=== PATIENT | female | born 1960 | race Caucasian/White ===

== ENCOUNTER 2017-02-22 19:07 | Inpatient (IN) | payer SELFPAY ==
[~2017-02-22] VITALS: Ht 157.5 cm; Wt 64.2 kg
--- OUTSIDE RECORDS SUMMARY | 2017-02-22 19:11 | XMS REPORT | Referral Summary ---
Author Author [facility] Organization [facility] Address Unknown Phone Unavailable Care Team Providers Care Sports Agent Name Role Phone Lesia Somers Primary Care Physician [phone] Encounter Date(s): 03/07/15 - 03/07/15 [facility] [address] [place] [address] [address] [place] [address] Discharge Diagnosis: Anemia Discharge Diagnosis: GERD (gastroesophageal reflux disease) Discharge Diagnosis: Melena Discharge Disposition: 01-Home or Self Care Attending Physician: Ankur Sunshine MD Admitting Physician: Ankur Sunshine MD Referring Physician: Jesus Somers MD Vital Signs Most recent to 1 oldest [Reference Range]: Temperature Tympanic 36.4 degC [36.6-38.1 degC] *LOW* (03/07/15 3:04 PM) Peripheral Pulse 80 bpm Rate [60-100 bpm] (03/07/15 3:04 PM) Respiratory Rate 16 br/min [14-20 br/min] (03/07/15 3:04 PM) Blood Pressure 112/74 mmHg [90-140/60-90 mmHg] (03/07/15 3:04 PM) Problem List Condition Effective Dates Status Health Status Informant Anemia(Confirmed) Active Depression(Confirmed Active ) Fever(Confirmed) Active Kidney Active stones(Confirmed) Mental Active retardation(Confirme d) Allergies, Adverse Reactions, Alerts No Known Medication Allergies Medications cyclobenzaprine 10 mg oral tablet 1 tabs, Oral, q8hr, Pain, # 30 tabs, 0 Refill(s), Pharmacy: [facility] # [id number], 1 tabs Oral q8hr,PRN:Pain Start Date: 02/28/15 Stop Date: 11/01/15 Status: Ordered Glucophage 500 mg oral tablet 1 tabs, Oral, Daily, # 90 tabs, 0 Refill(s), Pharmacy: [facility] #[id number] , 1 tabs Oral Daily,x90 days Start Date: 02/22/15 Stop Date: 05/23/15 Status: Ordered ibuprofen 200 mg oral tablet 2 tabs, Oral, q6hr, as needed for pain, # 120 tabs, 0 Refill(s) Start Date: 02/21/15 Status: Ordered PARoxetine 20 mg oral tablet 2 tabs, Oral, Daily, # 30 tabs, 0 Refill(s) Start Date: 02/21/15 Status: Ordered PriLOSEC 40 mg oral delayed release capsule 1 caps, Oral, Daily, # 30 caps, 0 Refill(s), Pharmacy: [facility] #[id number] , 1 caps Oral Daily Start Date: 02/21/15 Status: Ordered Results No data available for this section Immunizations No data available for this section Procedures No data available for this section Social History Social History Type Response Smoking Status Never smoker Assessment and Plan Extracted from: Title: Ambulatory Patient Education Author: Ankur Sunshine MD Date: 03/07 Family Medicine Diet for Gastroesophageal Reflux Disease, Adult Reflux (acid reflux ) is when acid from your stomach flows up into the esophagus. When acid comes in contact with the esophagus, the acid causes irritation and soreness (inflammation ) in the esophagus. When reflux happens often or so severely that it causes damage to the esophagus, it is called gastroesophageal reflux disease (GERD). Nutrition therapy can help ease the discomfort of GERD. FOODS OR DRINKS TO AVOID OR LIMIT Smoking or chewing tobacco. Nicotine is one of the most potent stimulants to acid production in the gastrointestinal tract. Caffeinated and decaffeinated coffee and black tea. Regular or low-calorie carbonated beverages or energy drinks (caffeine- free carbonated beverages are allowed). Strong spices, such as black pepper, white pepper, red pepper, cayenne, fontanez powder, and chili powder. Peppermint or spearmint. Chocolate. High-fat foods, including meats and fried foods. Extra added fats including oils, butter, salad dressings, and nuts. Limit these to less than 8 tsp per day. Fruits and vegetables if they are not tolerated, such as citrus fruits or tomatoes. Alcohol. Any food that seems to aggravate your condition. If you have questions regarding your diet, call your caregiver or a registered dietitian. OTHER THINGS THAT MAY HELP GERD INCLUDE: Eating your meals slowly, in a relaxed setting. Eating 5 to 6 small meals per day instead of 3 large meals. Eliminating food for a period of time if it causes distress. Not lying down until 3 hours after eating a meal. Keeping the head of your bed raised 6 to 9 inches (15 to 23 cm) by using a foam wedge or blocks under the legs of the bed. Lying flat may make symptoms worse. Being physically active. Weight loss may be helpful in reducing reflux in overweight or obese adults. Wear loose fitting clothing EXAMPLE MEAL PLAN This meal plan is approximately 2,000 calories based on [employer] Blood[employer]ate.gov meal planning guidelines. Breakfast cup cooked oatmeal. 1 cup strawberries. 1 cup low-fat milk. 1 oz almonds. Snack 1 cup cucumber slices. 6 oz yogurt (made from low-fat or fat-free milk). Lunch 2 slice whole-wheat bread. 2 oz sliced turkey. 2 tsp mayonnaise. 1 cup blueberries. 1 cup snap peas. Snack 6 whole-wheat crackers. 1 oz string cheese. Dinner cup brown rice. 1 cup mixed veggies. 1 tsp olive oil. 3 oz grilled fish. Document Released: 10/19/2006 Document Revised: 01/10/2013 Document Reviewed: ExitCare Patient Information 2014 [employer]. No follow up information was provided. Extracted from: Title: Office Visit Note Author: Ankur Sunshine MD Date: 03/07/15 Assessment/Plan Anemia Ordered: Office Visit Level 4 New 88904 GERD (gastroesophageal reflux disease) Ordered: Office Visit Level 4 New [id number] Melena Ordered: Office Visit Level 4 New [id number] Plan: Bidirectional endoscopy. I did review the patient's chart including a recent office note performed by her primary care physician from February 21, 2015. Reviewed lab work from this date consisting of CBC CMP and amylase levels. Hemoglobin was found to be low at 9.3. White count slightly elevated at 15.4. Otherwise lab found to be essentially within normal limits. I informed the patient that I would recommend that she undergo both an EGD as well as a colonoscopy for further evaluation of her melanotic stools, anemia, serve as a portion of her overall colorectal cancer surveillance, as well as secondary to her history for GERD. Risk of endoscopy was discussed with the patient. Risks include but are not inclusive of bleeding and/or perforation requiring surgery. Patient understood and did not want to schedule at this time for financial reasons. I did have my staff informed the patient that our clinic does offer financial assistance and decreased rates for people in need. She was given phone numbers to contact in regards to this matter.
--- OUTSIDE RECORDS SUMMARY | 2017-02-22 19:11 | XMS REPORT | Continuity of Care Document ---
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 Exotropia, unspecified - *Chronic Depression - *Chronic OTHER ABNORMAL GLUCOSE - *Chronic Family History Family Member Diagnosis Age At Onset Status Father (Unknown) Alive and well (Unknown) Mother (Unknown) COPD Yes Social History Social History Element Description Quantity Unknown Allergies, Adverse Reactions, Alerts Substance Reaction Severity Status Unknown Medications Medication Instructions Dosage Effective Dates (start - stop) Status Paxil 30 mg tablet take 1 tablet (30MG) by oral route every day 30 MG - Active Mucinex D 60 mg-600 mg tablet,extended release take 1 tablet by oral route every 12 hours as needed 0 - Active Immunizations Vaccine Date Status Comments Unknown Results Test Name Date and Time Measure Units Reference Range Abnormal Flag Comments Unknown Vital Signs Date / Time: Height Weight Pulse Rate Blood Pressure Temperature /08:56:00 62.25 in 143.00 lbs 126/78 mm[Hg] 96.9 F Procedures Procedure Date Unknown Encounters Encounter Location Date Patient Visit [facility] Patient Visit [facility] Patient Visit Conversion Patient Visit [facility] Lauro Advance Directives Directive Effective Date Unknown
--- OUTSIDE RECORDS SUMMARY | 2017-02-22 19:11 | XMS REPORT | Referral Summary ---
Author Author [facility] Family Medicine Organization [facility] Family [facility] Address Unknown Phone Unavailable Care Team Providers Care Insurance Claim Representative Name Role Phone Lesia Somers Primary Care Physician [phone] Encounter VC Date(s): 07/10/16 - 07/10/16 [facility], Family [address] [place] [address] Discharge Disposition: 01-Home or Self Care Attending Physician: Jesus Somers MD Admitting Physician: Jesus Somers MD Vital Signs Most recent to 1 oldest [Reference Range]: Blood Pressure 130/90 mmHg [90-140/60-90 mmHg] (07/10/16 8:06 AM) Problem List Condition Effective Dates Status Health Status Informant Anemia(Confirmed) Active Anxiety(Confirmed)1 Active Depression(Confirmed Active ) Unspecified disorder Active of eye movements(Confirmed) Fever(Confirmed) Active Preglaucoma, Active unspecified(Confirme d) Hyperlipidemia(Confi Active rmed) Adult Active hypothyroidism(Confi rmed) Kidney Active stones(Confirmed) Homonymous bilateral Active field defects(Confirmed) NIDDY (non-insulin Active dependent diabetes mellitus in young)(Confirmed) Mental Active retardation(Confirme d) 1Dr. [facility] Allergies, Adverse Reactions, Alerts No Known Medication Allergies Medications ibuprofen 200 mg oral tablet 2 tabs, Oral, q6hr, as needed for pain, # 120 tabs, 0 Refill(s) Start Date: 02/21/15 Status: Ordered metFORMIN 500 mg oral tablet 500 mg 1 tabs, Oral, Daily, with meals, # 90 tabs, 0 Refill(s), Pharmacy: [facility] #[id number], 1 tabs Oral Daily,Instr:with meals Start Date: 07/10/16 Status: Ordered PARoxetine 20 mg oral tablet 2 tabs, Oral, Daily, # 30 tabs, 0 Refill(s) Start Date: 02/21/15 Status: Ordered Synthroid 25 mcg (0.025 mg) oral tablet 25 mcg 1 tabs, Oral, Daily, # 60 tabs, 0 Refill(s), Pharmacy: [facility] # [id number], 1 tabs Oral Daily Start Date: 07/10/16 Status: Ordered Results No data available for this section Immunizations Vaccine Date Refusal Reason influenza virus vaccine, inactivated 07/10/16 tetanus-diphth toxoids (Td) adult/adol 04/12/01 Procedures No data available for this section Social History Social History Type Response Smoking Status Never smoker Assessment and Plan Extracted from: Title: Ambulatory Patient Education Author: Jesus Somers MD Date: 07/10/16 Family Medicine Cholesterol Cholesterol is a white, waxy, fat-like substance needed by your body in small amounts. The liver makes all the cholesterol you need. Cholesterol is carried from the liver by the blood through the blood vessels. Deposits of cholesterol ( plaque) may build up on blood vessel michael. These make the arteries narrower and stiffer. Cholesterol plaques increase the risk for heart attack and stroke. You cannot feel your cholesterol level even if it is very high. The only way to know it is high is with a blood test. Once you know your cholesterol levels, you should keep a record of the test results. Work with your health care provider to keep your levels in the desired range. WHAT DO THE RESULTS MEAN? Total cholesterol is a rough measure of all the cholesterol in your blood. LDL is the so-called bad cholesterol. This is the type that deposits cholesterol in the michael of the arteries. You want this level to be low. HDL is the good cholesterol because it cleans the arteries and carries the LDL away. You want this level to be high. Triglycerides are fat that the body can either burn for energy or store. High levels are closely linked to heart disease. WHAT ARE THE DESIRED LEVELS OF CHOLESTEROL? Total cholesterol below 200. LDL below 100 for people at risk, below 70 for those at very high risk. HDL above 50 is good, above 60 is best. Triglycerides below 150. HOW CAN I LOWER MY CHOLESTEROL? Diet. Follow your diet programs as directed by your health care provider. Choose fish or white meat chicken and turkey, roasted or baked. Limit fatty cuts of red meat, fried foods, and processed meats, such as sausage and lunch meats. Eat lots of fresh fruits and vegetables. Choose whole grains, beans, pasta, potatoes, and cereals. Use only small amounts of olive, corn, or canola oils. Avoid butter, mayonnaise, shortening, or palm kernel oils. Avoid foods with trans fats. Drink skim or nonfat milk and eat low-fat or nonfat yogurt and cheeses. Avoid whole milk, cream, ice cream, egg yolks, and full-fat cheeses. Healthy desserts include brandt food cake, frederick snaps, animal crackers, hard candy, popsicles, and low-fat or nonfat frozen yogurt. Avoid pastries, cakes, pies, and cookies. Exercise. Follow your exercise programs as directed by your health care provider. A regular program helps decrease LDL and raise HDL. A regular program helps with weight control. Do things that increase your activity level like gardening, walking, or taking the stairs. Ask your health care provider about how you can be more active in your daily life. Medicine. Take medicine only as directed by your health care provider. Medicine may be prescribed by your health care provider to help lower cholesterol and decrease the risk for heart disease. If you have several risk factors, you may need medicine even if your levels are normal. This information is not intended to replace advice given to you by your health care provider. Make sure you discuss any questions you have with your health care provider. Document Released: 07/14/2002 Document Revised: 11/09/2015 Document Reviewed: [facility] Patient Information [address] [facility]. No follow up information was provided. Extracted from: Title: Office Visit Note Author: Jesus Somers MD Date: 07/10/16 Assessment/Plan Adult hypothyroidism Synthroid .025mg po daily. RTC in 60 days for recheck. The patient has family members present who are agreeable with today's plan and have no additional concerns or requests. Her father is here. Depression This issue was reviewed, appears stable, and current therapy continued except as mentioned. Appropriate lab was reviewed from the most recent appropriate entry and lab was ordered if needed in the cpoe/nursing orders, and follow up recommended generally in 90 days and no later then six months. Stable on paxil. Hyperlipidemia This issue was reviewed, appears stable, and current therapy continued except as mentioned. Appropriate lab was reviewed from the most recent appropriate entry and lab was ordered if needed in the cpoe/nursing orders, and follow up recommended generally in 90 days and no later then six months. Mental retardation This issue was reviewed, appears stable, and current therapy continued except as mentioned. Appropriate lab was reviewed from the most recent appropriate entry and lab was ordered if needed in the cpoe/nursing orders, and follow up recommended generally in 90 days and no later then six months. NIDDY (non-insulin dependent diabetes mellitus in young) This issue was reviewed, appears stable, and current therapy continued except as mentioned. Appropriate lab was reviewed from the most recent appropriate entry and lab was ordered if needed in the cpoe/nursing orders, and follow up recommended generally in 90 days and no later then six months. The patient was notified for the need for regular quarterly f/u of their diabetes. Further any pertinent medication, supplies, etc were refilled. Additionally, they are to have annual eye exams, foot exams, and regular care. Lab stable. The patient was given the vaccines requested per protocol and according to those needed for school/family/college/etc. Flu vaccine given.
--- OUTSIDE RECORDS SUMMARY | 2017-02-22 19:11 | XMS REPORT | Referral Summary ---
Author Organization Unknown Address Unknown Phone Unavailable Care Team Providers Care Reading Tutor Name Role Phone Lesia Somers Primary Care Physician [phone] Encounter [facility] [id number] Date(s): 02/22/15 - 02/22/15 [facility], [facility], Family Medicine [address] [place] [address] [place] [id number] Discharge Diagnosis: Abdominal pain Discharge Diagnosis: Anemia Discharge Diagnosis: Fever Discharge Diagnosis: Elevated blood sugar Discharge Diagnosis: Medication reaction Discharge Diagnosis: GI bleed Discharge Diagnosis: Nausea & vomiting Discharge Diagnosis: Mental retardation Discharge Disposition: Home or Self Care Attending Physician: Jesus Somers MD Admitting Physician: Jesus Somers MD Vital Signs Most recent to 1 oldest [Reference Range]: Blood Pressure 128/70 mmHg [90-140/60-90 mmHg] (02/22/15 8:55 AM) Problem List Condition Effective Dates Status Health Status Informant Anemia(Confirmed) Active Depression(Confirmed Active ) Fever(Confirmed) Active Kidney Active stones(Confirmed) Mental Active retardation(Confirme d) Allergies, Adverse Reactions, Alerts No Known Medication Allergies Medications Glucophage 500 mg oral tablet 1 tabs, Oral, Daily, # 90 tabs, 0 Refill(s), Pharmacy: [facility] #[id number] , 1 tabs Oral Daily,x90 days Start Date: 02/22/15 Stop Date: 05/23/15 Status: Ordered ibuprofen 200 mg oral tablet 2 tabs, Oral, q6hr, as needed for pain, # 120 tabs, 0 Refill(s) Start Date: 02/21/15 Status: Ordered Keflex 500 mg oral capsule 1 caps, Oral, QID, X 10 days, # 40 caps, 0 Refill(s), Pharmacy: [facility] #[id number], 1 caps Oral QID,x10 days Start Date: 02/21/15 Stop Date: 03/03/15 Status: Ordered PARoxetine 20 mg oral tablet 2 tabs, Oral, Daily, # 30 tabs, 0 Refill(s) Start Date: 02/21/15 Status: Ordered PriLOSEC 40 mg oral delayed release capsule 1 caps, Oral, Daily, # 30 caps, 0 Refill(s), Pharmacy: [facility] #[id number] , 1 caps Oral Daily Start Date: 02/21/15 Status: Ordered Results No data available for this section Immunizations No data available for this section Procedures No data available for this section Social History Social History Type Response Smoking Status Never smoker Assessment and Plan Extracted from: Title: Ambulatory Patient Education Author: Jesus Somers MD Date: Emergency Medicine Abdominal Pain, Adult Many things can cause abdominal pain. Usually, abdominal pain is not caused by a disease and will improve without treatment. It can often be observed and treated at home. Your health care provider will do a physical exam and possibly order blood tests and X-rays to help determine the seriousness of your pain. However, in many cases, more time must pass before a clear cause of the pain can be found. Before that point, your health care provider may not know if you need more testing or further treatment. HOME CARE INSTRUCTIONS Monitor your abdominal pain for any changes. The following actions may help to alleviate any discomfort you are experiencing: Only take [id number] or prescription medicines as directed by your health care provider. Do not take laxatives unless directed to do so by your health care provider. Try a clear liquid diet (broth, tea, or water) as directed by your health care provider. Slowly move to a bland diet as tolerated. SEEK MEDICAL CARE IF: You have unexplained abdominal pain. You have abdominal pain associated with nausea or diarrhea. You have pain when you urinate or have a bowel movement. You experience abdominal pain that wakes you in the night. You have abdominal pain that is worsened or improved by eating food. You have abdominal pain that is worsened with eating fatty foods. SEEK IMMEDIATE MEDICAL CARE IF: Your pain does not go away within 2 hours. You have a fever. You keep throwing up (vomiting ). Your pain is felt only in portions of the abdomen, such as the right side or the left lower portion of the abdomen. You pass bloody or black tarry stools. MAKE SURE YOU: Understand these instructions. Will watch your condition. Will get help right away if you are not doing well or get worse. Document Released: 07/29/2006 Document Revised: 08/09/2014 Document Reviewed: ExitCare Patient Information [address] [facility]. No follow up information was provided. Extracted from: Title: Office Visit Note Author: Jesus Somers MD Date: 02/22/15 Assessment/Plan Abdominal pain Improved. Awaiting hemoccults. To [facility] Surgery tomorrow for evaluation. To ER if worse. Anemia Labreviewed. To [facility] Surgery for evaluationtomorrow. To ER if worse. The patient has family members present who are agreeable with today's plan and have no additional concerns or requests. Father is here. Elevated blood sugar Glucophage 500mg po daily. Fever The patient's issue is nearly or completely resolved. There is no further issues or testing desired by them at this time. Continue abx for now. Ordered: Urinalysis with Culture if Indicated GI bleed See above. Medication reaction Stop the zofran. Unclear that this was the true cause but stopped for now. Mental retardation Mental challenges are permanent.Father is here with her. She is functionally independent. Nausea & vomiting Orders: cephalexin, 1 caps, Oral, QID, X 10 days, # 40 caps, 0 Refill(s), Pharmacy: [facility] #[id number], 1 caps Oral QID,x10 days metFORMIN, 1 tabs, Oral, Daily, # 90 tabs, 0 Refill(s), Pharmacy: [facility] #[id number], 1 tabs Oral Daily,x90 days omeprazole, 1 caps, Oral, Daily, # 30 caps, 0 Refill(s), Pharmacy: [facility] #[id number], 1 caps Oral Daily Occult Blood, Stool
--- OUTSIDE RECORDS SUMMARY | 2017-02-22 19:11 | XMS REPORT | Referral Summary ---
Author Author [facility], Family Medicine Organization [facility] Address Unknown Phone Unavailable Care Team Providers Care Test Developer Name Role Phone Lesia Somers Primary Care Physician [phone] Encounter [facility] [id number] Date(s): 09/03/16 - 09/03/16 [facility], Family [address] [place] [address] Discharge Diagnosis: Mental retardation Discharge Diagnosis: NIDDY (non-insulin dependent diabetes mellitus in young) Discharge Diagnosis: Scabies Discharge Diagnosis: Adult hypothyroidism Discharge Diagnosis: Pruritus Discharge Disposition: 01-Home or Self Care Attending Physician: Jesus Somers MD Admitting Physician: Jesus Somers MD Vital Signs Most recent to 1 oldest [Reference Range]: Blood Pressure 120/80 mmHg [90-140/60-90 mmHg] (09/03/16 4:02 PM) Problem List Condition Effective Dates Status Health Status Informant Anemia(Confirmed) Active Anxiety(Confirmed)1 Active Depression(Confirmed Active ) Unspecified disorder Active of eye movements(Confirmed) Fever(Confirmed) Active Preglaucoma, Active unspecified(Confirme d) Hyperlipidemia(Confi Active rmed) Adult Active hypothyroidism(Confi rmed) Kidney Active stones(Confirmed) Homonymous bilateral Active field defects(Confirmed) NIDDY (non-insulin Active dependent diabetes mellitus in young)(Confirmed) Mental Active retardation(Confirme d) [facility] Allergies, Adverse Reactions, Alerts No Known Medication Allergies Medications ibuprofen 200 mg oral tablet 2 tabs, Oral, q6hr, as needed for pain, # 120 tabs, 0 Refill(s) Start Date: 02/21/15 Status: Ordered metFORMIN 500 mg oral tablet 500 mg 1 tabs, Oral, Daily, with meals, # 90 tabs, 0 Refill(s), Pharmacy: [facility] #[id number], 1 tabs Oral Daily,Instr:with meals Start Date: 07/10/16 Status: Ordered PARoxetine 20 mg oral tablet 2 tabs, Oral, Daily, # 30 tabs, 0 Refill(s) Start Date: 02/21/15 Status: Ordered predniSONE 20 mg oral tablet 20 mg 1 tabs, Oral, Daily, X 5 days, # 5 tabs, 0 Refill(s), Pharmacy: [facility] #[id number], 1 tabs Oral Daily,x5 days Start Date: 09/03/16 Stop Date: 09/08/16 Status: Ordered predniSONE 20 mg oral tablet 20 mg 1 tabs, Oral, Daily, X 5 days, # 5 tabs, 0 Refill(s), Pharmacy: [facility] #[id number], 1 tabs Oral Daily,x5 days Start Date: 09/03/16 Stop Date: 09/08/16 Status: Ordered Synthroid 25 mcg (0.025 mg) oral tablet 25 mcg 1 tabs, Oral, Daily, # 90 tabs, 1 Refill(s), Pharmacy: [facility] # [id number], 1 tabs Oral Daily Start Date: 09/03/16 Status: Ordered Results No data available for this section Immunizations Vaccine Date Refusal Reason influenza virus vaccine, inactivated 07/10/16 tetanus-diphth toxoids (Td) adult/adol 04/12/01 Procedures No data available for this section Social History Social History Type Response Smoking Status Never smoker Assessment and Plan Extracted from: Title: Ambulatory Patient Education Author: Jesus Somers MD Date: Infectious Disease Scabies, Pediatric Scabies is a skin condition that occurs when a certain type of very small insects (the human itch mite, or Sarcoptes scabiei) get under the skin. This condition causes a rash and severe itching. It is most common in young children. Scabies can spread from person to person (is contagious). When a child has scabies, it is not unusual for the his or her entire family to become infested. Scabies usually does not cause lasting problems. Treatment will get rid of the mites, and the symptoms generally clear up in 24 weeks. CAUSES This condition is caused by mites that can only be seen with a microscope. The mites get into the top layer of skin and lay eggs. Scabies can spread from one person to another through: Close contact with an infested person. Sharing or having contact with infested items, such as towels, bedding, or clothing. RISK FACTORS This condition is more likely to develop in children who have a lot of contact with others, such as those in school or daycare. SYMPTOMS Symptoms of this condition include: Severe itching. This is often worse at night. A rash that includes tiny red bumps or blisters. The rash commonly occurs on the wrist, elbow, armpit, fingers, waist, groin, or buttocks. In children, the rash may also appear on the head, face, neck, palms of the hands, or soles of the feet. The bumps may form a line (luis eduardo) in some areas. Skin irritation. This can include scaly patches or sores. DIAGNOSIS This condition may be diagnosed based on a physical exam. Your child's health care provider will look closely at your child's skin. In some cases, your child' s health care provider may take a scraping of the affected skin. This skin sample will be looked at under a microscope to check for mites, their fecal matter, or their eggs. TREATMENT This condition may be treated with: Medicated cream or lotion to kill the mites. This is spread on the entire body and left on for a number of hours. One treatment is usually enough to kill all of the mites. For severe cases, the treatment is sometimes repeated. Rarely, an oral medicine may be needed to kill the mites. Medicine to help reduce itching. This may include oral medicines or topical creams. Washing or bagging clothing, bedding, and other items that were recently used by your child. You should do this on the day that you start your child's treatment. HOME CARE INSTRUCTIONS Medicines Apply medicated cream or lotion as directed by your child's health care provider. Follow the label instructions carefully. The lotion needs to be spread on the entire body and left on for a specific amount of time, usually 8 12 hours. It should be applied from the neck down for anyone over 2 years old. Children under 2 years old also need treatment of the scalp, forehead, and temples. Do not wash off the medicated cream or lotion before the specified amount of time. To prevent new outbreaks, other family members and close contacts of your child should be treated as well. Skin Care Have your child avoid scratching the affected areas of skin. Keep your child's fingernails closely trimmed to reduce injury from scratching. Have your child take cool baths or apply cool washcloths to help reduce itching. General Instructions Use hot water to wash all towels, bedding, and clothing that were recently used by your child. For unwashable items that may have been exposed, place them in closed plastic bags for at least 3 days. The mites cannot live for more than 3 days away from human skin. Vacuum furniture and mattresses that are used by your child. Do this on the day that you start your child's treatment. SEEK MEDICAL CARE IF: Your child's itching lasts longer than 4 weeks after treatment. Your child continues to develop new bumps or burrows. Your child has redness, swelling, or pain in the rash area after treatment. Your child has fluid, blood, or pus coming from the rash area. This information is not intended to replace advice given to you by your health care provider. Make sure you discuss any questions you have with your health care provider. Document Released: 10/19/2006 Document Revised: 03/04/2016 Document Reviewed: [employer] Interactive Patient Education 2016 [employer] No follow up information was provided. Extracted from: Title: Office Visit Note Author: Jesus Somers MD Date: 09/03/16 Assessment/Plan Adult hypothyroidism This issue was reviewed, appears stable, and current therapy continued except as mentioned. Appropriate lab was reviewed from the most recent appropriate entry and lab was ordered if needed in the cpoe/nursing orders, and follow up recommended generally in 90 days and no later then six months. Lab stable. Refill meds. Mental retardation This issue was reviewed, appears stable, and current therapy continued except as mentioned. Appropriate lab was reviewed from the most recent appropriate entry and lab was ordered if needed in the cpoe/nursing orders, and follow up recommended generally in 90 days and no later then six months. A work/school note was offered and deferred by the patient. The patient has family members present who are agreeable with today's plan and have no additional concerns or requests. Father here. NIDDY (non-insulin dependent diabetes mellitus in young) [...] eye exams, foot exams, and regular care. Pruritus Prednisone 20mg po daily for five days. OTC benadryl prn. Scabies The patient's issue is nearly or completely resolved. There is no further issues or testing desired by them at this time. Finish last dose on Wednesday 09/05.
--- OUTSIDE RECORDS SUMMARY | 2017-02-22 19:11 | XMS REPORT | Referral Summary ---
Author Author [facility], Family Medicine Organization [facility] Address Unknown Phone Unavailable Care Team Providers Care Rebar Fabricator Name Role Phone Lesia Somers Primary Care Physician [phone] Encounter Date(s): 08/28/16 - 08/28/16 [facility], [address] [place] [address] Discharge Diagnosis: NIDDY (non-insulin dependent diabetes mellitus in young) Discharge Diagnosis: Adult hypothyroidism Discharge Diagnosis: Mental retardation Discharge Diagnosis: Anxiety Discharge Diagnosis: Scabies Discharge Disposition: -Home or Self Care Attending Physician: Jesus Somers MD Admitting Physician: Jesus Somers MD Vital Signs Most recent to 1 oldest [Reference Range]: Blood Pressure 130/70 mmHg [90-140/60-90 mmHg] (08/28/16 4:37 PM) Problem List Condition Effective Dates Status Health Status Informant Anemia(Confirmed) Active Anxiety(Confirmed)1 Active Depression(Confirmed Active ) Unspecified disorder Active of eye movements(Confirmed) Fever(Confirmed) Active Preglaucoma, Active unspecified(Confirme d) Hyperlipidemia(Confi Active rmed) Adult Active hypothyroidism(Confi rmed) Kidney Active stones(Confirmed) Homonymous bilateral Active field defects(Confirmed) NIDDY (non-insulin Active dependent diabetes mellitus in young)(Confirmed) Mental Active retardation(Confirme d) 1[facility] Allergies, Adverse Reactions, Alerts No Known Medication Allergies Medications ibuprofen 200 mg oral tablet 2 tabs, Oral, q6hr, as needed for pain, # 120 tabs, 0 Refill(s) Start Date: 02/21/15 Status: Ordered metFORMIN 500 mg oral tablet 500 mg 1 tabs, Oral, Daily, with meals, # 90 tabs, 0 Refill(s), [id number], 1 tabs Oral Daily,Instr:with meals Start Date: 07/10/16 Status: Ordered PARoxetine 20 mg oral tablet 2 tabs, Oral, Daily, # 30 tabs, 0 Refill(s) Start Date: 02/21/15 Status: Ordered Synthroid 25 mcg (0.025 mg) oral tablet 25 mcg 1 tabs, Oral, Daily, # 60 tabs, 0 Refill(s), Pharmacy: [facility] # [id number], 1 tabs Oral Daily Start Date: 07/10/16 Status: Ordered Results Chemistry Most recent to 1 oldest [Reference Range]: TSH with Reflex Free 2.91 T4 [0.35-4.94] (08/28/16 4:56 PM) Immunizations Vaccine Date Refusal Reason influenza virus vaccine, inactivated 07/10/16 tetanus-diphth toxoids (Td) adult/adol 04/12/01 Procedures No data available for this section Social History Social History Type Response Smoking Status Never smoker Assessment and Plan Extracted from: Title: Ambulatory Patient Education Author: Jesus Somers MD Date: Home Health Care Diabetes and Exercise Exercising regularly is important. It is not just about losing weight. It has many health benefits, such as: Improving your overall fitness, flexibility, and endurance. Increasing your bone density. Helping with weight control. Decreasing your body fat. Increasing your muscle strength. Reducing stress and tension. Improving your overall health. People with diabetes who exercise gain additional benefits because exercise: Reduces appetite. Improves the body's use of blood sugar (glucose). Helps lower or control blood glucose. Decreases blood pressure. Helps control blood lipids (such as cholesterol and triglycerides). Improves the body's use of the hormone insulin by: Increasing the body's insulin sensitivity. Reducing the body's insulin needs. Decreases the risk for heart disease because exercising: Lowers cholesterol and triglycerides levels. Increases the levels of good cholesterol (such as high-density lipoproteins [HDL]) in the body. Lowers blood glucose levels. YOUR ACTIVITY PLAN Choose an activity that you enjoy, and set realistic goals. To exercise safely, you should begin practicing any new physical activity slowly, and gradually increase the intensity of the exercise over time. Your health care provider or bit sander can help create an activity plan that works for you. General recommendations include: Encouraging children to engage in at least 60 minutes of physical activity each day. Stretching and performing strength training exercises, such as yoga or weight lifting, at least 2 times per week. Performing a total of at least 150 minutes of moderate-intensity exercise each week, such as brisk walking or water aerobics. Exercising at least 3 days per week, making sure you allow no more than 2 consecutive days to pass without exercising. Avoiding long periods of inactivity (90 minutes or more). When you have to spend an extended period of time sitting down, take frequent breaks to walk or stretch. RECOMMENDATIONS FOR EXERCISING WITH TYPE 1 OR TYPE 2 DIABETES Check your blood glucose before exercising. If blood glucose levels are greater than 240 mg/dL, check for urine ketones. Do not exercise if ketones are present. Avoid injecting insulin into areas of the body that are going to be exercised. For example, avoid injecting insulin into: The arms when playing tennis. The legs when jogging. Keep a record of: Food intake before and after you exercise. Expected peak times of insulin action. Blood glucose levels before and after you exercise. The type and amount of exercise you have done. Review your records with your health care provider. Your health care provider will help you to develop guidelines for adjusting food intake and insulin amounts before and after exercising. If you take insulin or oral hypoglycemic agents, watch for signs and symptoms of hypoglycemia. They include: Dizziness. Shaking. Sweating. Chills. Confusion. Drink plenty of water while you exercise to prevent dehydration or heat stroke. Body water is lost during exercise and must be replaced. Talk to your health care provider before starting an exercise program to make sure it is safe for you. Remember, almost any type of activity is better than none. This information is not intended to replace advice given to you by your health care provider. Make sure you discuss any questions you have with your health care provider. Document Released: 01/08/2005 Document Revised: 03/04/2016 Document Reviewed: [employer] Patient Education 2016 [employer] No follow up information was provided. Extracted from: Title: Office Visit Note Author: Jesus Somers MD Date: 08/28/16 Assessment/Plan Adult hypothyroidism This issue was reviewed, appears stable, and current therapy continued except as mentioned. Appropriate lab was reviewed from the most recent appropriate entry and lab was ordered if needed in the cpoe/nursing orders, and follow up recommended generally in 90 days and no later then six months. Labpending. Ordered: TSH with Reflex Free T4 Anxiety This issue was reviewed, appears stable, and [...] days and no later then six months. Consider applying for disability when willing. She declined for now. NIDDY (non-insulin dependent diabetes mellitus in young) The patient was notified for the need for regular quarterly f/u of their diabetes. Further any pertinent medication, supplies, etc were refilled. Additionally, they are to have annual eye exams, foot exams, and regular care. Lab stable. Scabies Ivermectin 3mg five tabs x1 and repeatin one week x1. Call report if not improving. Father NOT here today.
--- OUTSIDE RECORDS SUMMARY | 2017-02-22 19:11 | XMS REPORT | Referral Summary ---
Author Author [facility] Organization [facility] Address Unknown Phone Unavailable Care Team Providers Care Conference Producer Name Role Phone Lesia Somers Primary Care Physician [phone] Encounter VC Date(s): 06/10/16 - 06/10/16 [facility], Family [address] [place] [address] Discharge Disposition: 01-Home or Self Care Attending Physician: Jesus Somers MD Admitting Physician: Jesus Somers MD Vital Signs Most recent to 1 oldest [Reference Range]: Blood Pressure 120/80 mmHg [90-140/60-90 mmHg] (06/10/16 9:46 AM) Problem List Condition Effective Dates Status Health Status Informant Anemia(Confirmed) Active Anxiety(Confirmed)1 Active Depression(Confirmed Active ) Unspecified disorder Active of eye movements(Confirmed) Fever(Confirmed) Active Preglaucoma, Active unspecified(Confirme d) Kidney Active stones(Confirmed) Homonymous bilateral Active field defects(Confirmed) NIDDY (non-insulin Active dependent diabetes mellitus in young)(Confirmed) Mental Active retardation(Confirme d) [facility] All[facility]ies, Adverse Reactions, Alerts No Known Medication Allergies Medications Claritin 10 mg oral tablet 10 mg 1 tabs, Oral, Daily, X 14 days, # 14 tabs, 0 Refill(s), Pharmacy: [facility] #[id number], 1 tabs Oral Daily,x14 days Start Date: 06/10/16 Stop Date: 06/24/16 Status: Ordered ibuprofen 200 mg oral tablet 2 tabs, Oral, q6hr, as needed for pain, # 120 tabs, 0 Refill(s) Start Date: 02/21/15 Status: Ordered PARoxetine 20 mg oral tablet 2 tabs, Oral, Daily, # 30 tabs, 0 Refill(s) Start Date: 02/21/15 Status: Ordered predniSONE 20 mg oral tablet 20 mg 1 tabs, Oral, Daily, X 10 days, # 10 tabs, 0 Refill(s), Pharmacy: [facility] #[id number], 1 tabs Oral Daily,x10 days Start Date: 06/10/16 Stop Date: 06/20/16 Status: Ordered Results Hematology Most recent to 1 oldest [Reference Range]: WBC [4.8-10.8 9.2 10*3/uL 10*3/uL] (06/10/16 10:07 AM) RBC [4.00-5.20] 4.91 (06/10/16 10:07 AM) Hgb [12.0-16.0 14.6 gm/dL gm/dL] (06/10/16 10:07 AM) Hct [37.0-47.0 %] 42.5 % (06/10/16 10:07 AM) MCV [82.0-99.0 fL] 86.6 fL (06/10/16 10:07 AM) MCH [27.0-32.0 pg] 29.7 pg (06/10/16 10:07 AM) MCHC [32.0-36.0 34.4 gm/dL gm/dL] (06/10/16 10:07 AM) RDW [11.5-14.5 %] 13.2 % (06/10/16 10:07 AM) Platelet [150-400 315 10*3/uL 10*3/uL] (06/10/16 10:07 AM) MPV [8.8-14.8 fL] 10.3 fL (06/10/16 10:07 AM) Immature 0.1 % Granulocytes (06/10/16 10:07 AM) [0.0-1.0 %] Neutrophils [51-75 43 % %] *LOW* (06/10/16 10:07 AM) Lymphocytes [20-46 39 % %] (06/10/16 10:07 AM) Monocytes [4-11 %] 9 % (06/10/16 10:07 AM) Eosinophils [0-4 %] 9 % *HI* (06/10/16 10:07 AM) Basophils [0-2 %] 1 % (06/10/16 10:07 AM) Neutro Absolute 3.92 10*3 [1.90-7.00 10*3] (06/10/16 10:07 AM) Lymph Absolute 3.53 10*3 [0.80-3.30 10*3] *HI* (06/10/16 10:07 AM) [place] Absolute 0.86 10*3 [0.30-1.00 10*3] (06/10/16 10:07 AM) Eos Absolute 0.80 10*3 [0.00-0.50 10*3] *HI* (06/10/16 10:07 AM) Baso Absolute 0.05 10*3 [0.00-0.20 10*3] (06/10/16 10:07 AM) Chemistry Most recent to 1 oldest [Reference Range]: Sodium Lvl [135-144 138 mEq/L mEq/L] (06/10/16 10:07 AM) Potassium Lvl 4.3 mEq/L [3.5-5.2 mEq/L] (06/10/16 10:07 AM) Chloride [99-111 105 mEq/L mEq/L] (06/10/16 10:07 AM) CO2 [22-31 mEq/L] 24 mEq/L (06/10/16 10:07 AM) AGAP [3-20] 9 (06/10/16 10:07 AM) BUN [10-20 mg/dL] 17 mg/dL (06/10/16 10:07 AM) Glucose Lvl [70-99 94 mg/dL mg/dL] (06/10/16 10:07 AM) Creatinine Lvl 0.92 mg/dL [0.57-1.11 mg/dL] (06/10/16 10:07 AM) eGFR [>60 mL/min] >60 mL/min 1 (06/10/16 10:07 AM) Calcium Lvl 9.9 mg/dL [8.9-10.5 mg/dL] (06/10/16 10:07 AM) Albumin Lvl [3.5-5.0 4.4 gm/dL gm/dL] (06/10/16 10:07 AM) Total Protein 7.6 gm/dL 2 [6.1-7.7 gm/dL] (06/10/16 10:07 AM) Globulin [1.8-4.0 3.2 gm/dL gm/dL] (06/10/16 10:07 AM) ALT [0-55 U/L] 16 U/L (06/10/16 10:07 AM) AST [5-34 U/L] 15 U/L (06/10/16 10:07 AM) Alk Phos [40-150 112 U/L U/L] (06/10/16 10:07 AM) Bili Total [0.2-1.2 0.3 mg/dL mg/dL] (06/10/16 10:07 AM) Chol [0-199 mg/dL] 196 mg/dL (06/10/16: AM) Trig [0-149 mg/dL] 171 mg/dL *HI* (06/10/16: AM) HDL [40-84 mg/dL] 44 mg/dL (06/10/16: AM) LDL [0-130 mg/dL] 118 mg/dL (06/10/16:07 AM) VLDL Cholesterol 34 mg/dL [0-28 mg/dL] *HI* (06/10/16 10:07 AM) Cardiac Risk 4.5 [0.0-5.0] (06/10/16 10:07 AM) T4 Free [0.7-1.5 1.0 ng/dL ng/dL] (06/10/16 10:07 AM) TSH with Reflex Free 7.68 T4 [0.35-4.94] *HI* (06/10/16:07 AM) Hgb A1c [4.1-5.6 %] 5.5 % (06/10/16 10:07 AM) eAvg Glucose 111.2 mg/dL (06/10/16 10:07 AM) 1Result Comment: Multiply eGFR results by 1.21 for race. 2Result Comment: Please note new reference range for adult Protein. Urinalysis Most recent to 1 oldest [Reference Range]: UA Color Yellow (06/10/16 10:25 AM) UA Appear Cloudy *ABN* (06/10/16 10:25 AM) UA pH [5.0-8.0] 5.0 (06/10/16 10:25 AM) UA Leuk Est Negative [Negative] (06/10/16 10:25 AM) UA Nitrite Negative [Negative] (06/10/16 10:25 AM) UA Protein Negative [Negative] (06/10/16 10:25 AM) UA Glucose Negative [Negative] (06/10/16 10:25 AM) UA Ketones Trace [Negative] *ABN* (06/10/16 10:25 AM) UA Urobilinogen 0.2 mg/dL [<1.0 mg/dL] (06/10/16 10:25 AM) UA Bili [Negative] Negative (06/10/16 10:25 AM) UA Blood [Negative] Negative (06/10/16 10:25 AM) UA Spec Grav 1.027 [1.003-1.030] (06/10/16 10:25 AM) Type Voided (06/10/16 10:25 AM) Immunizations Vaccine Date Refusal Reason tetanus-diphth toxoids (Td) adult/adol 04/12/01 Procedures Procedure Date Related Diagnosis Body Site Collection of venous blood by venipuncture 06/10/16 Social History Social History Type Response Smoking Status Never smoker Assessment and Plan Extracted from: Title: Ambulatory Patient Education Author: Jesus Somers MD Date: 06/10/16 Allergy Allergies An allergy is an abnormal reaction to a substance by the body's defense system ( immune system). Allergies can develop at any age. WHAT CAUSES ALLERGIES? An allergic reaction happens when the immune system mistakenly reacts to a normally harmless substance, called an allergen, as if it were harmful. The immune system releases antibodies to fight the substance. Antibodies eventually release a chemical called histamine into the bloodstream. The release of histamine is meant to protect the body from infection, but it also causes discomfort. An allergic reaction can be triggered by: Eating an allergen. Inhaling an allergen. Touching an allergen. WHAT TYPES OF ALLERGIES ARE THERE? There are many types of allergies. Common types include: Seasonal allergies. People with this type of allergy are usually allergic to substances that are only present during certain seasons, such as molds and pollens. Food allergies. Drug allergies. Insect allergies. Animal dander allergies. WHAT ARE SYMPTOMS OF ALLERGIES? Possible allergy symptoms include: Swelling of the lips, face, tongue, mouth, or throat. Sneezing, coughing, or wheezing. Nasal congestion. Tingling in the mouth. Rash. Itching. Itchy, red, swollen areas of skin (hives). Watery eyes. Vomiting. Diarrhea. Dizziness. Lightheadedness. Fainting. Trouble breathing or swallowing. Chest tightness. Rapid heartbeat. HOW ARE ALLERGIES DIAGNOSED? Allergies are diagnosed with a medical and family history and one or more of the following: Skin tests. Blood tests. A food diary. A food diary is a record of all the foods and drinks you have in a day and of all the symptoms you experience. The results of an elimination diet. An elimination diet involves eliminating foods from your diet and then adding them back in one by one to find out if a certain food causes an allergic reaction. HOW ARE ALLERGIES TREATED? There is no cure for allergies, but allergic reactions can be treated with medicine. Severe reactions usually need to be treated at a hospital. HOW CAN REACTIONS BE PREVENTED? The best way to prevent an allergic reaction is by avoiding the substance you are allergic to. Allergy shots and medicines can also help prevent reactions in some cases. People with severe allergic reactions may be able to prevent a life- threatening reaction called anaphylaxis with a medicine given right after exposure to the allergen. This information is not intended to replace advice given to you by your health care provider. Make sure you discuss any questions you have with your health care provider. Document Released: 01/12/2004 Document Revised: 11/09/2015 Document Reviewed: [facility] Patient Information 2016 [place]. Poison Noemy Poison noemy is a inflammation of the skin (contact dermatitis) caused by touching the allergens on the leaves of the noemy plant following previous exposure to the plant. The rash usually appears 48 hours after exposure. The rash is usually bumps (papules) or blisters (vesicles) in a linear pattern. Depending on your own sensitivity, the rash may simply cause redness and itching , or it may also progress to blisters which may break open. These must be well cared for to prevent secondary bacterial (germ) infection, followed by scarring. Keep any open areas dry, clean, dressed, and covered with an antibacterial ointment if needed. The eyes may also get puffy. The puffiness is worst in the morning and gets better as the day progresses. This dermatitis usually heals without scarring, within 2 to 3 weeks without treatment. HOME CARE INSTRUCTIONS Thoroughly wash with soap and water as soon as you have been exposed to poison noemy. You have about one half hour to remove the plant resin before it will cause the rash. This washing will destroy the oil or antigen on the skin that is causing, or will cause, the rash. Be sure to wash under your fingernails as any plant resin there will continue to spread the rash. Do not rub skin vigorously when washing affected area. Poison noemy cannot spread if no oil from the plant remains on your body. A rash that has progressed to weeping sores will not spread the rash unless you have not washed thoroughly. It is also important to wash any clothes you have been wearing as these may carry active allergens. The rash will return if you wear the unwashed clothing, even several days later. Avoidance of the plant in the future is the best measure. Poison noemy plant can be recognized by the number of leaves. Generally, poison noemy has three leaves with flowering branches on a single stem. Diphenhydramine may be purchased over the counter and used as needed for itching. Do not drive with this medication if it makes you drowsy.Ask your caregiver about medication for children. SEEK MEDICAL CARE IF: Open sores develop. Redness spreads beyond area of rash. You notice purulent (pus-like) discharge. You have increased pain. Other signs of infection develop (such as fever). This information is not intended to replace advice given to you by your health care provider. Make sure you discuss any questions you have with your health care provider. Document Released: 10/16/2001 Document Revised: 01/10/2013 Document Reviewed: [employer] Patient Information 2016 [place]. No follow up information was provided. Extracted from: Title: Office Visit Note Author: Jesus Somers MD Date: 06/10/16 Assessment/Plan Anxiety This issue was reviewed, appears stable, [...] no later then six months. The patient has family members present who are agreeable with today 's plan and have no additional concerns or requests. Father here. A work/ school note was offered and deferred by the patient. NIDDY (non-insulin dependent diabetes mellitus in young) Lab pending. Restart glucophage 500mg po daily. Needs to check bgms regularly/daily and prn. Poison noemy Solumedrol 80mg IM. Prednisone 20mg po daily for ten days, claritin 10mg po daily.
--- OUTSIDE RECORDS SUMMARY | 2017-02-22 19:11 | XMS REPORT | Continuity of Care Document ---
Author Author Tamica Reyes LPN Organization Ambulatory Address [address] [place] [address] Phone Unavailable Care Team Providers Care Blankbook Stitching Machine Operator Name Role Phone Bell[place]seJesus mohamud PP Unavailable Payers Payer name Insurance type Covered alliance party ID Authorization(s) Unknown Problems Condition Effective Dates (start - stop) Clinical Status Dizziness - *Chronic Exotropia, unspecified - *Chronic Depression - *Chronic OTHER ABNORMAL GLUCOSE - *Chronic Acute nonsuppurative otitis media, unspecified - Acute Sinusitis, Acute - Acute PREGLAUCOMA NOS - HOMONYMOUS HEMIANOPSIA - EYE MOVEMNT DISORDER NOS - Family History Family Member Diagnosis Age At [...] Height Weight Pulse Rate Blood Pressure Temperature /10:08:00 62.25 in 147.00 lbs 128/72 mm[Hg] 97.8 F Procedures Procedure Date Unknown Encounters Encounter Location Date Patient Visit [facility] Patient Visit [facility] Patient Visit Conversion Advance Directives Directive Effective Date Unknown
--- OUTSIDE RECORDS SUMMARY | 2017-02-22 19:11 | XMS REPORT | Referral Summary ---
Author Organization Unknown Address Unknown Phone Unavailable Care Team Providers Care Risk Consulting Treasury Director Name Role Phone Lesia Somers Primary Care Physician [phone] Encounter [facility] [id number] Date(s): 02/21/15 - 02/21/15 [facility], [facility], Family Medicine [address] [place] [address] [place] [id number] Discharge Diagnosis: Nausea & vomiting Discharge Diagnosis: Kidney stones Discharge Diagnosis: Mental retardation Discharge Diagnosis: Abdominal pain Discharge Diagnosis: Abdominal pain Discharge Diagnosis: Esotropia Discharge Diagnosis: Depression Discharge Disposition: Home or Self Care Attending Physician: Jesus Somers MD Vital Signs Most recent to 1 oldest [Reference Range]: Blood Pressure 110/80 mmHg [90-140/60-90 mmHg] (02/21/15 3:57 PM) Problem List Condition Effective Dates Status Health Status Informant Depression(Confirmed Active ) Kidney Active stones(Confirmed) Mental Active retardation(Confirme d) Allergies, Adverse Reactions, Alerts No Known Medication Allergies Medications ibuprofen 200 mg oral tablet 2 tabs, Oral, q6hr, as needed for pain, # 120 tabs, 0 Refill(s) Start Date: 02/21/15 Status: Ordered Keflex 500 mg oral capsule 1 caps, Oral, QID, X 10 days, # 40 caps, 0 Refill(s), Pharmacy: [facility] #[id number], 1 caps Oral QID,x10 days Start Date: 02/21/15 Stop Date: 03/03/15 Status: Ordered PARoxetine 20 mg oral tablet 2 tabs, Oral, Daily, # 30 tabs, 0 Refill(s) Start Date: 02/21/15 Status: Ordered PriLOSEC 40 mg oral delayed release capsule 1 caps, Oral, Daily, # 30 caps, 0 Refill(s), Pharmacy: [facility] #[id number] , 1 caps Oral Daily Start Date: 02/21/15 Status: Ordered Zofran 4 mg oral tablet 1 tabs, Oral, q6hr, Nausea or Vomiting, # 40 tabs, 0 Refill(s), Pharmacy: [facility] #[id number], 1 tabs Oral q6hr,PRN:Nausea or Vomiting Start Date: 02/21/15 Stop Date: 03/07/15 Status: Ordered Results Hematology Most recent to 1 oldest [Reference Range]: WBC [4.8-10.8 K/uL] 15.4 K/uL *HI* (02/21/15 4:25 PM) RBC [4.00-5.20 M/uL] 3.26 M/uL *LOW* (02/21/15 4:25 PM) Hgb [12.0-16.0 9.3 gm/dL gm/dL] *LOW* (02/21/15 4:25 PM) Hct [37.0-47.0 %] 27.9 % *LOW* (02/21/15 4:25 PM) MCV [82.0-99.0 fL] 85.6 fL (02/21/15 4:25 PM) MCH [27.0-32.0 pg] 28.5 pg (02/21/15 4:25 PM) MCHC [32.0-36.0 33.3 gm/dL gm/dL] (02/21/15 4:25 PM) RDW [11.5-14.5 %] 12.5 % (02/21/15 4:25 PM) Platelet [150-400 316 K/uL K/uL] (02/21/15 4:25 PM) MPV [8.8-14.8 fL] 11.3 fL (02/21/15 4:25 PM) Immature 0.3 % Granulocytes (02/21/15 4:25 PM) [0.0-1.0 %] Neutrophils [51-75 77 % %] *HI* (02/21/15 4:25 PM) Lymphocytes [20-46 18 % %] *LOW* (02/21/15 4:25 PM) Monocytes [4-11 %] 4 % (02/21/15 4:25 PM) Eosinophils [0-4 %] 1 % (02/21/15 4:25 PM) Basophils [0-2 %] 0 % (02/21/15 4:25 PM) Neutro Absolute 11.92 THOUS [1.90-7.00 THOUS] *HI* (02/21/15 4:25 PM) Lymph Absolute 2.69 THOUS [0.80-3.30 THOUS] (02/21/15 4:25 PM) [place] Absolute 0.61 THOUS [0.30-1.00 THOUS] (02/21/15 4:25 PM) Eos Absolute 0.08 THOUS [0.00-0.50 THOUS] (02/21/15 4:25 PM) Baso Absolute 0.06 THOUS [0.00-0.20 THOUS] (02/21/15 4:25 PM) Chemistry Most recent to 1 oldest [Reference Range]: Sodium Lvl [135-144 139 mEq/L mEq/L] (02/21/15 4:25 PM) Potassium Lvl 4.4 mEq/L [3.5-5.2 mEq/L] (02/21/15 4:25 PM) Chloride [99-111 108 mEq/L mEq/L] (02/21/15 4:25 PM) CO2 [22-31 mEq/L] 17 mEq/L *LOW* (02/21/15 4:25 PM) AGAP [3-20] 14 (02/21/15 4:25 PM) BUN [10-20 mg/dL] 44 mg/dL *HI* (02/21/15 4:25 PM) Glucose Lvl [70-99 181 mg/dL mg/dL] *HI* (02/21/15 4:25 PM) Creatinine Lvl 0.85 mg/dL [0.57-1.11 mg/dL] (02/21/15 4:25 PM) eGFR [>60 mL/min] >60 mL/min 1 (02/21/15 4:25 PM) Calcium Lvl 9.8 mg/dL [8.9-10.5 mg/dL] (02/21/15 4:25 PM) Albumin Lvl [3.5-5.0 4.0 gm/dL gm/dL] (02/21/15 4:25 PM) Total Protein 6.6 gm/dL [6.4-8.3 gm/dL] (02/21/15 4:25 PM) Globulin [1.8-4.0 2.6 gm/dL gm/dL] (02/21/15 4:25 PM) ALT [0-55 unit/L] 11 unit/L (02/21/15 4:25 PM) AST [5-34 unit/L] 10 unit/L (02/21/15 4:25 PM) Alk Phos [40-150 71 unit/L unit/L] (02/21/15 4:25 PM) Bili Total [0.2-1.2 0.2 mg/dL mg/dL] (02/21/15 4:25 PM) Lipase Lvl [8-78 21 unit/L unit/L] (02/21/15 4:25 PM) Amylase Lvl [25-125 52 unit/L unit/L] (02/21/15 4:25 PM) 1Result Comment: Multiply eGFR results by 1.21 for race. Immunizations No data available for this section [...] any discomfort you are experiencing: Only take somo-[id number] or prescription medicines as directed by your [...] 08/09/2014 Document Reviewed: [employer] Patient Information 2014 [email or web address]. No follow up information was provided. Extracted from: Title: Office Visit Note Author: Jesus Somers MD Date: 02/21/15 Assessment/Plan Abdominal pain Discussed being treated in [facility] ER and refused. Lab pending. The patient has family members present who are agreeable with today's plan and have no additional concerns or requests. Father here. To ER if worse in any way. Trial ofkeflex 500mg po qid for ten days for any underlying uti/ diverticulitis.F/U in AM tomorrow. Abdominal pain See above. Ordered: Amylase Level CBC w/ Differential Comprehensive Metabolic Panel Lipase Level Occult Blood, Stool Urinalysis with Culture if Indicated Depression This issue is stable and appropriate refills, lab, and f/u have been discussed. Esotropia This issue is stable and appropriate refills, lab, and f/u have been discussed. Kidney stones The patient's issue is nearly or completely resolved. There is no further issues or testing desired by them at this time. History of these , lab pending. Mental retardation This issue is stable and appropriate refills, lab, and f/u have been discussed. Mostly unspecified intellectual difficulties and presenting challenges to termination clerk employment. Nausea & vomiting Zofran 4mg po q6 prn. To ER if worse. Orders: cephalexin, 1 caps, Oral, QID, X 10 days, # 40 caps, 0 Refill(s), Pharmacy: [facility] #[id number], 1 caps Oral QID,x10 days omeprazole, 1 caps, Oral, Daily, # 30 caps, 0 Refill(s), Pharmacy: [facility] #[id number], 1 caps Oral Daily ondansetron, 1 tabs, Oral, q6hr, Nausea or Vomiting, # 40 tabs, 0 Refill(s), Pharmacy: [facility] #[id number], 1 tabs Oral q6hr,PRN:Nausea or Vomiting Addendum She was also given prilosec 40mg po daily for abdominal pain and possible ulcer. Again by deferred ER. Jesus Somers MD on 21 February 2015 16:23:54 CDT
--- OUTSIDE RECORDS SUMMARY | 2017-02-22 19:11 | XMS REPORT | Continuity of Care Document ---
Author Author [facility] Organization [facility] Address Unknown Phone Unavailable Allergies Medications Problems Procedures Results Encounters ACCT No. Visit Date/Time Discharge Status Pt. Type Provider Facility Loc./Unit Complaint [id number] 11/29/2013 08:52:00 11/29/2013 23 :59:59 CLS Outpatient [id number] 08/29/2013 10:04:00 08/29/2013 23 :59:59 CLS Outpatient
[2017-02-22] MEDS ORDERED: NORMAL SALINE 1,000 ML IV ONE ×2 (19:15→20:15)
--- NOTE | 2017-02-22 19:19 | ERPDOC ---
Departure Disposition Decision Date: Feb 22, 2017 Disposition Decision Time: 21:59 Disposition: 02 TO [facility] Impression Impression Impression: Primary Impression: GIB (gastrointestinal bleeding) GI bleed type/associated pathology: melena Qualified Codes: K92.1 - Melena Additional Impression: Anemia Anemia type: other cause Other causes of anemia: other cause, not classified Qualified Codes: D64.89 - Other specified anemias Severity: Severe Condition: Improved Seen By: Physician only Referrals: (Family) Problems/Meds/Labs Reviewed?: Yes Medications reviewed and manag: Yes Follow up care ordered?: Yes Mental Status: Alert, Oriented Critical Care Note Total Time (mins): 30 Critical Care Spent: [id number] care of pt, Reviewing test results, Discuss the case w/staff, Documenting the MR, Discussion w/ family/DPOA During this visit the pt was: At Risk of Deterioration HPI - Abdominal Pain General Chief Complaint: GI Bleed Stated Complaint: ABD PAIN/VOMITING Time Seen by Provider: 19:10 Source: patient History/Exam Limitations: no limitations HPI - Abdominal Pain Initial Comments 56yo woman presented to the ER tonight by EMS for abd pain. Pt has had black, tarry stools today along with abd pain and nausea. Pt was hypotensive and tachycardic en route. BP improved with fluids and Trendelenburg positioning. Sx all started today. Has never had problems like this before. Has been taking ibuprofen q12hrs for dental pain/abscess. Occurred At: home Onset: Rapid Duration: 12-24 hrs Pain Scale: Now & Worst: 4/10 Quality: cramping Location: generalized abdomen Radiation: no radiation Activities at Onset: none Modifying Factors: IMPROVES WITH: analgesics, defecating, WORSE WITH: movement , palpation Associated Symptoms: nausea/vomiting, shortness of breath Hx of Similar Symptoms: No Allergies: Coded Allergies: No Known Allergies (Unverified , 02/22/17) Past History Past Medical History Metabolic: diabetes, hypothyroidism Psychological: depression Social History Smoking Status: Never smoker Substance Use Type: does not use Alcohol Intake: none Review of Systems Constitutional Constitutional: fatigue GI Upper Abdomen: nausea, pain, DENIES: dysphagia, food intolerances, heartburn/ indigestion, hematemesis, vomiting Lower Abdomen: diarrhea, melena, pain, DENIES: blood in stool, fei-colored stools, constipation, painful BM All other Systems All Other Systems: Reviewed and Negative Physical Exam General General Nourishment: well nourished, well developed, appears stated age, no acute distress, adult, obese General Body Habitus: well groomed Vitals and Pain First Documented Vital Signs Date Time Temp Pulse Resp B/P Pulse Ox O2 Delivery O2 Flow Rate FiO2 02/22/17 19:07 98.4 120 20 108/72 100 Room Air 02/23/17 06:30 4.00 Weight: Kilograms: Height (feet): Height (inches): Triage Pain Scale: RN VS reviewed by Provider: Yes Normal Exams: Head: Normocephalic w/o trauma Eyes: Pupils are PERRLA w/ EOMI, No scleral icterus, irritation ENMT: No facial trauma, nasal exudates, pharyngeal erythema Neck: Full range of motion, without adenopathy, JVD Lymphatic: No lymphadenopathy Musculoskeletal: No tenderness, or deformity noted Integumentary: No rashes, hives, or bruising noted Neurologic: Patient is alert, and oriented Psychiatric: Patient exhibits, appropriate attention Respiratory (brief) Respiratory: FOUND: clear all noyola, equal bilaterally, symmetrical, NOT FOUND : rales, wheezes Cardiovascular (brief) Cardiac: FOUND: regular rate, regular rhythm, NOT FOUND: click, gallop, murmur , pedal edema, peripheral edema, rub Capillary Refill: <2 sec Pulses: all distal extremities, equal, strong Abdomen (brief) Abdominal Brief: FOUND: bowel normo active x4, soft, NOT FOUND: distended, hepatosplenomegaly, pulsatile mass, tender Integumentary (brief) Comments Diffuse pallor Differential Diagnoses Considering: Crohn's, Diverticulitis, Gastroenteritis, GI Bleed, Hepatitis, Ulcer Progress Results/Orders Orders Procedure Category Date Status Time Normal Saline (Normal PHA 02/24/17 In Process Saline Iv) 07:15 Cbc W/Auto LAB 02/25/17 Logged Diff-Reflex Manual 04:00 Magnesium LAB 02/25/17 Logged 04:00 Renal Panel LAB 02/25/17 Logged 04:00 Hgb - Hemoglobin LAB 02/24/17 Complete 10:00 Hgb - Hemoglobin LAB 02/24/17 Complete 16:00 Hgb - Hemoglobin LAB 02/24/17 Complete 22:00 Hgb - Hemoglobin LAB 02/25/17 Logged 10:00 Hgb - Hemoglobin LAB 02/25/17 Logged 16:00 Diphenhydramine PHA 02/24/17 Complete (Benadryl) 10:45 Give Packed Cell BBK 02/24/17 Logged Communication Order MINA 02/24/17 Complete 10:36 Discontinue Ng Tube MINA 02/24/17 Complete 11:01 Clear Liquid: No DIET 02/24/17 Transmitted Red/Purple Dy Lunch Lab Results Laboratory Tests Test 02/24/17 04:56 02/24/17 06:30 02/24/17 09:57 02/24/17 11:06 White Blood Count 14.1T/MM3 Red Blood Count 2.51M/MM3 Hemoglobin 7.5GM/DL 7.3GM/DL Hematocrit 21.7% Mean Corpuscular Volume 86.5UM3 Mean Corpuscular Hemoglobin 29.9UUG Mean Corpuscular Hemoglobin Concent 34.6GM/DL RDW Standard Deviation 41.3FL Platelet Count 109T/MM3 Mean Platelet Volume 10.7UM3 Immature Granulocyte % (Auto) 0.4% Neutrophils (%) (Auto) 65.2% Lymphocytes (%) (Auto) 27.1% Monocytes (%) (Auto) 6.8% Eosinophils (%) (Auto) 0.2% Basophils (%) (Auto) 0.3% Absolute Immature Granulocyte (auto 0.05T/MM3 Absolute Neutrophils (auto) 9.2T/MM3 Absolute Lymphocytes (auto) 3.8T/MM3 Absolute Monocytes (auto) 1.0T/MM3 Absolute Eosinophils (auto) 0.0T/MM3 Absolute Basophils (auto) 0.0T/MM3 Turbidity < 20 Sodium Level 143MEQ/L Potassium Level 3.7MEQ/L Chloride Level 116MEQ/L Carbon Dioxide Level 23MEQ/L Anion Gap 4MEQ/L Blood Urea Nitrogen 22.0MG/DL Creatinine 0.7MG/DL Glomerular Filtration Rate Calc 87 BUN/Creatinine Ratio 31RATIO Glucose Level 106MG/DL Calculated Osmolality 278MOSM/KG Calcium Level 7.1MG/DL Icterus Index < 2 Thyroid Stimulating Hormone (TSH) 9.39MIU/L Chemistry Specimen Hemolysis < 15 Glucometer 104mg/dL 124mg/dL Test 02/24/17 16:25 02/24/17 17:01 02/24/17 21:02 02/24/17 21:58 Hemoglobin 8.7GM/DL 7.9GM/DL Glucometer 109mg/dL 94mg/dL Medications Current ED Medications Sodium Chloride 1,000 ml @ 0 mls/hr Q0M ONCE IV Last administered on 19:31; Start 02/22/17 at 19:15; Stop 02/22/17 at 19:16; Status DC Sodium Chloride (Normal Saline IV) 1,000 ml @ 0 mls/hr Q0M ONCE IV Last administered on 02/22/17 20:16; Start 02/22/17 at 20:15; Stop 02/22/17 at 20:16 ; Status DC Iohexol 1 bottle 1 bottle STK-MED ONCE .ROUTE ; Start 02/22/17 at 20:14; Stop at 20:15; Status DC Sodium Chloride (NS) 100 ml @ As Directed STK-MED ONCE .ROUTE ; Start 02/22/17 at 20:14; Stop 02/22/17 at 20:15; Status DC Sodium Chloride (Iv Flush) 10 ml STK-MED ONCE .ROUTE ; Start 02/22/17 at 20:14; Stop 02/22/17 at 20:15; Status DC Sodium Chloride 10 ml 10 ml STK-MED ONCE .ROUTE ; Start 02/22/17 at 20:52; Stop 02/22/17 at 20:53; Status DC Sodium Chloride 1,000 ml @ 125 mls/hr Q8H IV Last administered on 02/23/17 20 :30; Start 02/22/17 at 22:01; Stop 02/24/17 at 17:44; Status DC Sodium Chloride (NS) 500 ml @ 0 mls/hr Q0M IV Last administered on 02/23/17 00 :05; Start 02/22/17 at 22:01; Stop 02/23/17 at 08:49; Status DC Progress Progress Pt with acute GI bleed and Hb <8.0. Vital signs normalized with 2L crystalloids. Discussed pts care with Oscar Davis; will admit for further treatment/PRBCs. Consult/PCP Consult/PCP : Physician Contacted: Oscar Davis Time Called: 21:41 Time of first response: 21:48 Type of discussion: Admit Discussion/PCP Discussion Details Will admit pt for PRBCs and referral to Gen Surg for eval. Xray Xray : Xray: CXR PA/Lat Interpretation: Normal, Interpreted by Me CT CT : CT: Abd/Pelvis IV contrast Interpretation: Abnormal (Irregular, low-density hepatic mass), Reviewed Written Report ARANZA BARRERA Feb 22, 2017 19:19 Total Protein 5.1G/DL Albumin 2.7G/DL Globulin 2.4G/DL Albumin/Globulin Ratio 1.1RATIO Chemistry Specimen Hemolysis < 15 White Blood Count 16.1T/MM3 Red Blood Count 2.64M/MM3 Hemoglobin 7.7GM/DL Hematocrit 23.8% Mean Corpuscular Volume 90.2UM3 Mean Corpuscular Hemoglobin 29.2UUG Mean Corpuscular Hemoglobin Concent 32.4GM/DL RDW Standard Deviation 39.2FL Platelet Count 204T/MM3 Mean Platelet Volume 10.2UM3 Immature Granulocyte % (Auto) % Neutrophils (%) (Auto) % Lymphocytes (%) (Auto) % Monocytes (%) (Auto) % Eosinophils (%) (Auto) % Basophils (%) (Auto) % Absolute Immature Granulocyte (auto T/MM3 Absolute Neutrophils (auto) T/MM3 Absolute Lymphocytes (auto) T/MM3 Absolute Monocytes (auto) T/MM3 Absolute Eosinophils (auto) T/MM3 Absolute Basophils (auto) T/MM3 Neutrophils % (Manual) 78.0% Lymphocytes % (Manual) 16.0% Monocytes % (Manual) 5.0% Eosinophils % (Manual) 1.0% Absolute Neutrophils (Manual) 12.6T/MM3 Lymphocytes # (Manual) 2.6T/MM3 Monocytes # (Manual) 0.8T/MM3 Eosinophils # (Manual) 0.2T/MM3 Red Cell Morphology Comment Normal Urine Collection Type Cleancatch-midstream Urine Color Yellow Urine Turbidity Sl cloudy Urine pH 5.0 Urine Specific [place] 1.010 Urine Protein Negative Urine Glucose (UA) Negative Urine Ketones Trace Urine Blood 3+ Urine Nitrite Negative Urine Bilirubin Negative Urine Urobilinogen 0.2EU/DL Urine Leukocyte Esterase Negative Medications Current ED Medications Sodium Chloride 1,000 ml @ 0 mls/hr Q0M ONCE IV Last administered on 19:31; Start 02/22/17 at 19:15; Stop 02/22/17 at 19:16; Status DC Sodium Chloride (Normal Saline IV) 1,000 ml @ 0 mls/hr Q0M ONCE IV Last administered on 02/22/17 20:16; Start 02/22/17 at 20:15; Stop 02/22/17 at 20:16 ; Status DC Iohexol 1 bottle 1 bottle STK-MED ONCE .ROUTE ; Start 02/22/17 at 20:14; Stop at 20:15; Status DC Sodium Chloride (NS) 100 ml @ As Directed STK-MED ONCE .ROUTE ; Start 02/22/17 at 20:14; Stop 02/22/17 at 20:15; Status DC Sodium Chloride (Iv Flush) 10 ml STK-MED ONCE .ROUTE ; Start 02/22/17 at 20:14; Stop 02/22/17 at 20:15; Status DC Sodium Chloride 10 ml 10 ml STK-MED ONCE .ROUTE ; Start 02/22/17 at 20:52; Stop 02/22/17 at 20:53; Status DC Sodium Chloride 1,000 ml @ 100 mls/hr Q10H IV Last administered on 02/22/17 22:45; Start 02/22/17 at 22:01; Status UNV Sodium Chloride (NS) 500 ml @ 0 mls/hr Q0M IV ; Start 02/22/17 at 22:01; Status UNV Progress Progress Pt with acute GI bleed and Hb <8.0. Vital signs normalized with 2L crystalloids. Discussed pts care with [place] [facility]; will admit for further treatment/PRBCs. Consult/PCP Consult/PCP : Physician Contacted: [place] [facility] Time Called: 21:41 Time of first response: 21:48 Type of discussion: Admit Discussion/PCP Discussion Details Will admit pt for PRBCs and referral to Gen Surg for eval. Xray Xray : Xray: CXR PA/Lat Interpretation: Normal, Interpreted by Me CT CT : CT: Abd/Pelvis IV contrast Interpretation: Abnormal (Irregular, low-density hepatic mass), Reviewed Written Report ARANZA BARRERA DO Feb 22, 2017 19:19
[2017-02-22] MEDS ORDERED: PARO-38 PO (19:23)
[2017-02-22] MEDS ORDERED: LEVO25TA9 PO (19:24)
[2017-02-22] MEDS ORDERED: METF500T4 PO (19:24)
--- OUTSIDE RECORDS SUMMARY | 2017-02-22 19:29 | XMS REPORT | Continuity of Care Document ---
Author Author [facility] Organization [facility] Address Unknown Phone Unavailable Allergies Medications Problems Procedures Results Encounters ACCT No. Visit Date/Time Discharge Status Pt. Type Provider Facility Loc./Unit Complaint [id number] 11/29/2013 08:52:00 11/29/2013 23 :59:59 CLS Outpatient [id number] 08/29/2013 10:04:00 08/29/2013 23 :59:59 CLS Outpatient
[2017-02-22 19:37] LABS: HCT - HEMATOCRIT 23.8 % (36-46); HGB - HEMOGLOBIN 7.7 GM/DL (12-16); MEAN CORPUSCULAR HGB 29.2 UUG (26-34); MEAN CORPUSCULAR HGB CONC(MCHC 32.4 GM/DL (31-37); MEAN CORPUSCULAR VOLUME 90.2 UM3 (80-100); MEAN PLATELET VOLUME 10.2 UM3 (9.4-12.4); RED BLOOD COUNT 2.64 M/MM3 (4.00-5.20); WBC - WHITE BLOOD COUNT 16.1 T/MM3 (4.5-11.0)
[2017-02-22 19:46] LABS: INR 1.22 (0.76-1.04); PROTHROMBIN TIME 13.3 SEC (9.31-12.49); PTT 22.3 SEC (24-36)
[2017-02-22 19:53] LABS: ALBUMIN 2.7 G/DL (3.5-5.0); ALBUMIN/GLOBULIN RATIO 1.1 RATIO (1.1-2.2); ALKALINE PHOSPHATASE 54 U/L (38-126); ALT (SGPT) 22 U/L (9-52); ANION GAP 12 MEQ/L (5-15); AST (SGOT) 13 U/L (14-36); BUN/CREATININE RATIO 49 RATIO (6-26); CALCIUM 8.1 MG/DL (8.4-10.2); CHLORIDE 110 MEQ/L (98-107); CO2 - CARBON DIOXIDE 20 MEQ/L (22-30); CREATININE 0.9 MG/DL (0.7-1.2); GLOMERULAR FILTRATION RATE 65; GLUCOSE 133 MG/DL (65-110); POTASSIUM 3.9 MEQ/L (3.6-5); SODIUM 142 MEQ/L (134-144); TOTAL PROTEIN 5.1 G/DL (6.3-8.2)
[2017-02-22 19:58] LABS: EOSINOPHILS # (MANUAL) 0.2 T/MM3 (0-0.5); LYMPHOCYTES # (MANUAL) 2.6 T/MM3 (1-4.8); MONOCYTES # (MANUAL) 0.8 T/MM3 (0-0.8); NEUTROPHILS #(MANUAL)-ABSOLUTE 12.6 T/MM3 (1.8-7.7); TOTAL CELLS COUNTED 100 %
[2017-02-22] MEDS ORDERED: SALINE FLUSH 10ml SYRINGE ONE ×2 (20:14→20:52)
[2017-02-22] MEDS ORDERED: NORMAL SALINE 100 ML ONE (20:14)
[2017-02-22] MEDS ORDERED: IOHEXOL 300 MG/ML 100ml INJECTION ONE (20:14)
--- NOTE | 2017-02-22 20:35 | NUR ---
TO XRAY VIA CART
--- NOTE | 2017-02-22 21:09 | NUR ---
RETURN FROM CT
--- NOTE | 2017-02-22 21:47 | NUR ---
STATUS PT UP TO THE COMMODE. UA COLLECTED. PT INCONTINBENT SMALL AMOUNT OF BLACK COLORED STOOL
[2017-02-22 21:49] LABS: BLOOD, URINE 3+ (NEGATIVE); COLOR,URINE YELLOW (YELLOW); LEUKOCYTE ESTERASE ,URINE NEGATIVE (NEGATIVE); NITRITE,URINE NEGATIVE (NEGATIVE); UROBILINOGEN,URINE 0.2 EU/DL (NORMAL)
[2017-02-22] MEDS ORDERED: NORMAL SALINE 500 ML IV SCH (22:01)
--- NOTE | 2017-02-22 22:01 | HPPDOC ---
HPI - Adult Date DATE: 02/22/17 TIME: 21:49 General History of Present Illness 56 y/o female with h/o DM type 2, Hypothyroidism, anxiety/depression and GERD presents to ED brought by EMS d/t symptoms of weakness, lightheadedness, hematemesis and black tarry stools. Patient per EMS was noted to be hypotensive and tachycardic and started on IVFS by EMS and her BP and HR had improved by the time she reached the ER. Patient states the symptoms started today, and also states that she has been taking ibuprofen 400mg BID for the past 1-2 weeks for dental pain. She also states that her PCP has been concerned that she may have gastritis or PUD along w/ GERD though denies past GI bleed and denies h/o PUD.. She noted very small amount of BRBPR tonight in the hospital. She denies chest pain, soa, dyspnea, KWON, change in bladder function. In ER patient continued on IVFs; WBC = 16K, H/H = 7.7/8; BUN is elevated. Glucose = 133; InR = 1.22; Urine pending; Still mildly tachycardic, and BP is 120 systolic and improved. Afebrile. Denies tobacco, denies EtOH; Dr. Silverio is surgeon networks software consultant. Patient to be admitted to the Hospitalist service for further evaluation and management. Past Medical History Past Medical History Depression, DM, Hypothryroidism and GERD Current Medications Home Meds Reported Medications Metformin HCl (Metformin HCl) 500 Mg Tablet, 500 MG PO DAILY 02/22/17 Levothyroxine Sodium (Levothyroxine Sodium) 25 Mcg Tablet, 25 MCG PO ACB 02/22/17 Paroxetine HCl (Paroxetine HCl) 20 Mg Tablet, 20 MG PO DAILY 02/22/17 Allergies: Coded Allergies: No Known Allergies (Unverified , 02/22/17) Family History Family History: Denies h/o PUD in the family (at least that she knows of; There is family h/o DM & HTN in her father; Social History Smoking Status: Never smoker Substance Use Type: does not use Alcohol Intake: none Review of Systems All Other Systems All Other Systems: Reviewed (remainder of 10-point ROS Neg.) Physical Exam General General Nourishment: well nourished, well developed Vital Signs Vital Signs Date Time Temp Pulse Resp B/P Pulse Ox O2 Delivery O2 Flow Rate FiO2 02/22/17 20:31 113/63 02/22/17 20:22 99 Room Air 02/22/17 20:07 100 02/22/17 19:07 98.4 20 Height (Feet): 5 Height (Inches): 2.00 Telemetry Rhythm: Sinus Rhythm Eyes Brief: FOUND: EOMI, PERRL, NOT FOUND: scleral icterus Neck Brief: FOUND: midline, NOT FOUND: JVD, nuchal rigidity, tracheal deviation Respiratory Brief: FOUND: clear all noyola Cardiovascular (brief) Cardiac Brief: FOUND: regular rhythm, NOT FOUND: murmur, pedal edema Comments mildly tachycardic Abdomen (brief) Abdominal Brief: FOUND: BS normo active x4, soft, NOT FOUND: distended, tender Integumentary (brief) Integumentary Brief: FOUND: dry, pink, warm Neurologic (brief) Neurological Brief: FOUND: cranial 2-12 intact, motor, sensory Neurologic RN Documented GCS Eye Opening: Verbal: Motor: Total: Psychiatric (brief) FOUND: alert, attentive, normal affect, oriented Laboratory Laboratory Tests Test 02/22/17 19:29 02/22/17 19:30 Prothromb Time International Ratio 1.22 Activated Partial Thromboplast Time 22.3SEC Turbidity < 20 Sodium Level 142MEQ/L Potassium Level 3.9MEQ/L Chloride Level 110MEQ/L Carbon Dioxide Level 20MEQ/L Anion Gap 12MEQ/L Blood Urea Nitrogen 44.0MG/DL Creatinine 0.9MG/DL Glomerular Filtration Rate Calc 65 BUN/Creatinine Ratio 49RATIO Glucose Level 133MG/DL Calculated Osmolality 286MOSM/KG Calcium Level 8.1MG/DL Total Bilirubin 0.30MG/DL Icterus Index < 2 Aspartate Amino Transf (AST/SGOT) 13U/L Alanine Aminotransferase (ALT/SGPT) 22U/L Alkaline Phosphatase 54U/L Total Protein 5.1G/DL Albumin 2.7G/DL Globulin 2.4G/DL Albumin/Globulin Ratio 1.1RATIO Chemistry Specimen Hemolysis < 15 White Blood Count 16.1T/MM3 Red Blood Count 2.64M/MM3 Hemoglobin 7.7GM/DL Hematocrit 23.8% Mean Corpuscular Volume 90.2UM3 Mean Corpuscular Hemoglobin 29.2UUG Mean Corpuscular Hemoglobin Concent 32.4GM/DL RDW Standard Deviation 39.2FL Platelet Count 204T/MM3 Mean Platelet Volume 10.2UM3 Immature Granulocyte % (Auto) % Neutrophils (%) (Auto) % Lymphocytes (%) (Auto) % Monocytes (%) (Auto) % Eosinophils (%) (Auto) % Basophils (%) (Auto) % Absolute Immature Granulocyte (auto T/MM3 Absolute Neutrophils (auto) T/MM3 Absolute Lymphocytes (auto) T/MM3 Absolute Monocytes (auto) T/MM3 Absolute Eosinophils (auto) T/MM3 Absolute Basophils (auto) T/MM3 Neutrophils % (Manual) 78.0% Lymphocytes % (Manual) 16.0% Monocytes % (Manual) 5.0% Eosinophils % (Manual) 1.0% Absolute Neutrophils (Manual) 12.6T/MM3 Lymphocytes # (Manual) 2.6T/MM3 Monocytes # (Manual) 0.8T/MM3 Eosinophils # (Manual) 0.2T/MM3 Red Cell Morphology Comment Normal Assessment & Plan Assessment 1) Acute GI Bleed POA - likely upper GI bleed and possibly r/t NSAID use 2) ACute Blood loss Anemia POA 3) Acute tachycardia and hypotension - improving with IVFs 4) DM Type 2 on oral med (metformin) 5) Hypothyroidism 6) Depression and anxiety 7) GERD Plan/Intensity of Service Admit to Hospitalist Service Surgery Consult IV Protonix 40mg IV q 12 hours IVFs that of NS at 100 cc/hour CBC scheduled for 0400 to coincide with completion of 1 unit pRBCs Transfuse 1 unit pRBCs and follow H/H NPO except for sips w/ meds Telemetry PRN ativan for anxiety PRN MSO4 for pain IV PRN Zofran for n/v Supportive care DVT Prophylaxis: SCD'S Code Status Hospital Course Summary Disclaimer The hospital course summary below is not to be considered part of the above Progress Note. FORTUNATO COMER MD Feb 22, 2017 21:56
--- NOTE | 2017-02-22 22:11 | NUR ---
CALL FOR ROOM ASSIGNMENT: CALLED AND GET RM#[id number] FOR ADMISSION
[2017-02-22] MEDS ORDERED: INSULIN ASPART 100 UNIT/ML SQ PRN (22:15)
[2017-02-22] MEDS ORDERED: DEXTROSE 50% SYRINGE 50ml (Eq. 1 AMP) IV PRN (22:15)
[2017-02-22] MEDS ORDERED: GLUCOSE ORAL GEL 40% 37.5 G TUBE PO PRN (22:15)
--- NOTE | 2017-02-22 22:20 | NUR ---
REPORT CALLED REPORT TO KELVIN PATEL ON SURGICAL
--- OUTSIDE RECORDS SUMMARY | 2017-02-22 22:20 | XMS REPORT | Continuity of Care Document ---
Author Author [facility] Organization [facility] Address Unknown Phone Unavailable Allergies Medications Problems Procedures Results Encounters ACCT No. Visit Date/Time Discharge Status Pt. Type Provider Facility Loc./Unit Complaint [id number] 11/29/2013 08:52:00 11/29/2013 23 :59:59 CLS Outpatient [id number] 08/29/2013 10:04:00 08/29/2013 23 :59:59 CLS Outpatient
--- NOTE | 2017-02-22 22:30 | NUR ---
ADMIT 56 YEAR OLD FEMALE PATIENT ADMITTED TO ROOM 109 VIA WC FROM ED. ADMITTED TO SERVICES OF DR. MAGALLANES WITH GI BLEED. AWAKE AND ALERT. ORIENTED TO PERSON, PLACE, AND TIME. ORIENTED ROOM, CALL LIGHT, PLAN OF CARE, ETC. WILL MONITOR.
--- NOTE | 2017-02-22 22:30 | NUR ---
TRANSFER TO RM 109 PT IS TAKEN BY W/C TO RM 109.
[2017-02-22 22:34] VITALS: BP 126/74; PULSE 111; RESP 16; TEMP 98.2; O2SAT 100
[2017-02-22 22:35] VITALS: Ht 157.5 cm; Wt 64.2 kg
[2017-02-22] MEDS: NORMAL SALINE 1,000 ML IV SCH (22:45)
[2017-02-22] MEDS: PANTOPRAZOLE 40mg INJECTION IV SCH (22:45)
[2017-02-23] VITALS (55 sets, daily range): BP systolic 80–137; BP diastolic 50–85; PULSE 100–150; RESP 0–21; TEMP 97–100.6; O2SAT 90–100
[2017-02-23] MEDS: LORAZEPAM 0.5 MG TABLET PO PRN (00:03)
--- NOTE | 2017-02-23 00:05 | NUR ---
ATIVAN (lorazepam) 0.5 mg. given PO for anxiety and restlessness.
[2017-02-23] MEDS: ONDANSETRON 4mg/2ml INJECTION IV PRN ×2 (01:19→08:27)
--- NOTE | 2017-02-23 01:20 | NUR ---
C/O of nausea. ZOFRAN 4 mg. given IV.
[2017-02-23] MEDS: MORPHINE SULFATE 2 MG SYRINGE IV PRN ×2 (01:28→16:26)
--- NOTE | 2017-02-23 01:30 | NUR ---
Pt. reports tooth ache with throbbing pain. Has pain in abdominal area. MORPHINE 2 mg. given IV.
--- NOTE | 2017-02-23 01:50 | NUR ---
Rests quitely. Reports feeling much better.
--- NOTE | 2017-02-23 02:04 | NUR ---
TRANSFUSION REACTION TEMP 100.6 ORAL, BP 98/60, PULSE 128. BLOOD TRANSFUSION STOPPED. DR. COMER AND LAB NOTIFIED. SEE TRANSFUSION REACTION.
[2017-02-23] MEDS: ACETAMINOPHEN 325 MG TABLET PO PRN (02:35)
--- NOTE | 2017-02-23 04:20 | NUR ---
B/P last 2 hours remain low; 93/54;88/51;84/51. [place] text sent to Dr. Whitaker. Order recieved for fluid bolus. Patient informed. Iv set at 250 cc/hr. for two hours. NS infusing now.
[2017-02-23] MEDS: NORMAL SALINE 500 ML IV SCH ×2 (04:52→14:21)
[2017-02-23 05:18] LABS: BASOPHILS % (AUTO) 0.4 % (0-2); EOSINOPHILS % (AUTO) 0.2 % (0-4); HCT - HEMATOCRIT 19.9 % (36-46); HGB - HEMOGLOBIN 6.7 GM/DL (12-16); IMMATURE GRANULOCYTE # (AUTO) 0.02 T/MM3 (0.00-0.03); IMMATURE GRANULOCYTE % (AUTO) 0.2 % (0.0-0.5); LYMPHOCYTES # (AUTO) 2.4 T/MM3 (1-4.8); LYMPHOCYTES % (AUTO) 21.7 % (23-45); MEAN CORPUSCULAR HGB 29.6 UUG (26-34); MEAN CORPUSCULAR HGB CONC(MCHC 33.7 GM/DL (31-37); MEAN CORPUSCULAR VOLUME 88.1 UM3 (80-100); MEAN PLATELET VOLUME 11.1 UM3 (9.4-12.4); MONOCYTES # (AUTO) 0.5 T/MM3 (0-0.8); MONOCYTES % (AUTO) 4.5 % (0-9.0); RED BLOOD COUNT 2.26 M/MM3 (4.00-5.20)
[2017-02-23 05:46] LABS: ANION GAP 8 MEQ/L (5-15); BUN/CREATININE RATIO 56 RATIO (6-26); CALCIUM 7.4 MG/DL (8.4-10.2); CHLORIDE 115 MEQ/L (98-107); CO2 - CARBON DIOXIDE 19 MEQ/L (22-30); CREATININE 0.7 MG/DL (0.7-1.2); GLOMERULAR FILTRATION RATE 87; GLUCOSE 115 MG/DL (65-110); POTASSIUM 4.4 MEQ/L (3.6-5); SODIUM 142 MEQ/L (134-144)
--- NOTE | 2017-02-23 06:00 | NUR ---
LAB for today reviewed. Hgb 6.7; Hct. 19.9; RBC 2.26. [place] text to Dr. Nicholas. Reaction review is not complete; pending Pathology. Order recieved for 1 unit of blood. Pre-medicate with Tylenol and Benadryl. Informed Charge Nurse, Lela.
[2017-02-23] MEDS ORDERED: NORMAL SALINE 500 ML IV SCH (06:25)
--- NOTE | 2017-02-23 06:27 | NUR ---
Alicia from Lab sent information regarding possible blood transfusion reaction to Pathologist. Results to record report: No Evidence of Anti-body hemolytic transfusion reaction. This information was tiger texted to dr. Nicholas.
[2017-02-23] MEDS ORDERED: DiphenhydrAMINE 25 MG CAPSULE PO ONE ×2 (06:30→06:45)
--- NOTE | 2017-02-23 06:30 | NUR ---
END OF SHIFT SUMMARY: Alert and orientated. Anxious at times. Procedures and anticipation of diagnostic tests explained prior to initiating. Takes few ice chips. Assisted to bedside commode by one person. Voids. Has loose/liquidy odorous black stools Wears pull ups. Pt. recieved Ativan 0.5 mg. for anxiety and restlessness. ZOFRAN 4 mg. IV was given for nausea and MORPHINE 2 mg. IV was given for abdominal pain and throbbing pain of tooth. Blood transfusion in progress when pt. temp rambo to 100.5. Dr. Nicholas tiglinda texted by Charge Nurse. Transfusion work up initiated which turned out negative. Pathologist results: No evidence of anti-body medicated hemolytic transfusion reaction. Dr. Nicholas informed. Blood pressure remained low after blood transfusion. Dr. Nicholas notified. 500 cc. Bolus of NS given. Not very effective . This morning, Labs were drawn: Hgb. 6.7; Hct.19.9; RBC 2.26. Dr Nicholas notified via tiger text. Orders recieved for [id number] and another unit of blood. Patient is informed and accepting.
[2017-02-23] MEDS: NORMAL SALINE 1,000 ML IV SCH ×2 (06:56→20:30)
[2017-02-23] MEDS: LEVOTHYROXINE 25 MCG TABLET PO SCH (07:24)
--- NOTE | 2017-02-23 07:38 | NUR ---
STATUS PATIENT VITALS CHANGED FROM BASELINE. PATIENT BECAME TACHYCARDIC, AND ELEVATED RESPIRATIONS. PATIENT WAS ALERT AND ORIENTED X3. FROM TIME OF REPORT TO THIS TIME PATIENT HAD 3 BM WITH MAROON COLORED BLOOD. PATIENT HAD ANOTHER INCONTINENT BM IN BED AND BM/BLOOD APPEARED TO BE POOLING IN BED UNDER PATIENT. THIS NURSE NOTIFIED Carie MACEDO OF PATIENT STATUS CHANGE. Carlos MACEDO CAME TO ROOM AND ORDERED BLOOD, WITH PATIENT TRANSFER TO ICU.
--- NOTE | 2017-02-23 07:58 | NUR ---
TRANSFER TRANSFERRED FROM ROOM 109 TO CCU BED 6 VIA HOSPITAL BED. IVF INFUSING, O2 4L PER NC. ALL OF PATIENTS BELONGINGS TAKEN TO CCU BED 6 BY NURSING STAFF.
--- NOTE | 2017-02-23 08:00 | NUR ---
TRANSFERRED TO CCU -6 PER BED ACCOMP BY KELVIN LEROY. GALO, DIAPHORETIC, DENIES ABD DISCOMCFORT. NG TUBE PLACED WITH MAROON RETURN, PLACED TO LIS. MONITOR ST RATE 140. O2 4 L PER NC.
--- NOTE | 2017-02-23 08:07 | NUR ---
NG PLACEMENT [address] IN LEFT NARE AT THIS TIME PER APOLINAR MACEDO APRN. NG TO LOW INTERMITTENT SUCTION.
--- NOTE | 2017-02-23 08:10 | DI ---
INDICATION: ITS.REASON: Tachy, hypotense PROCEDURE: CHEST 2-VIEWS UPRIGHT (PA \T\ LAT) Encounter: Initial COMPARISON: None FINDINGS: The lungs are clear without evidence of focal abnormal airspace opacity. There is no pleural effusion or pneumothorax. The heart size, mediastinal contours and pulmonary vascularity are within normal limits. There is no significant skeletal abnormality. IMPRESSION: No acute cardiopulmonary disease. .
--- NOTE | 2017-02-23 08:15 | NUR ---
PHONE CALL RN ATTEMPTED TO NOTIFY FAMILY OF PATIENT'S STATUS. VOICE MESSAGE LEFT ON PHONE TO CALL SURGICAL SLEEVE WHEEL MAKER AT [phone].
--- NOTE | 2017-02-23 08:25 | DI ---
Indication: ITS.REASON: Abd pain, pallor, melena PROCEDURE: CT ABD/PELVIS W/CONTRAST ONLY: Encounter: Initial Comparison: None Technique: Axial CT images were performed through the abdomen and pelvis after the administration of intravenous contrast. Coronal and sagittal two-dimensional reformats. Automated Exposure Control and Iterative Reconstruction dose reducing techniques were utilized. Contrast: Omnipaque 300 89 mL Findings: CT ABDOMEN: Included portions of the lung bases are clear. Heart size normal. No pleural effusion. There is a nonspecific hypodense lesion in the upper right lobe of the liver that measures 2.0 x 1.5 cm. The spleen, kidneys, pancreas, and adrenal glands are normal. The gallbladder is thin-walled and nondistended with at least one small calcified gallstone in the gallbladder neck. The abdominal aorta is non-aneurysmal, without significant atherosclerotic disease. There is no retroperitoneal or mesenteric adenopathy. CT PELVIS: A normal appendix is not identified with certainty. There is no significant distal colonic diverticulosis or evidence for diverticulitis. The uterus and ovaries are unremarkable. There is no pelvic sidewall adenopathy. No free fluid. No definite bony destructive process. IMPRESSION: Cholelithiasis without evidence for cholecystitis. Nonspecific hypodense lesion in the upper right lobe of the liver measuring 2.0 x 1.5 cm. No evidence for infectious or inflammatory process. No evidence for mass or adenopathy. .
[2017-02-23] MEDS: PANTOPRAZOLE 40mg INJECTION IV SCH (08:32)
--- NOTE | 2017-02-23 08:43 | NUR ---
TRANSFUSION FIRST UNIT EMERGENT BLOOD INFUSING WITHOUT REACTION, INFUSING AT WIDE OPEN. 2ND UNIT PRBCS [id number] HUNG AT WIDE OPEN. BLAS FROM RADIOLOGY PLACED MIDLINE TO LEFT UPPER ARM WITH GREAT BLOOD RETURN. BP STABLE AT 90'S. REMAINS TACHY AT 113. O2 WEANED TO 4 L PER NC WITH SPO2 100% C/O SOA EARLIER, BUT DENIES AT THIS TIME. TO LOW 100.
[2017-02-23] MEDS: PAROXETINE 20 MG TABLET PO SCH (09:00)
--- NOTE | 2017-02-23 09:17 | HPPDOC ---
APOLINAR MACEDO V WRAPPER REWINDER 02/23/17 0904: HPI - Adult Date DATE: 02/23/17 TIME: 08:53 General Chief Complaint: Gi Bleeding History of Present Illness Selam is a 56 yr old who was her night. She was brought to the emergency room by EMS last evening with complaints of weakness and lightheadedness. She also reported having hemoptysis with black stools. EMS found patient to be hypotensive and tachycardic. She was given IV fluids and brought to the emergency room for further evaluation and treatment. Further laboratory studies did reveal anemia with a hemoglobin of 7.7. Her white count was elevated at 16.1 , hematocrit 23.8, platelet count 204. Sodium is 142, potassium 3.9, BUN 44, creatinine 0.9, glucose 133. INR 1.22, urinalysis showing a CT of the abdomen pelvis was obtained showing cholelithiasis without evidence of acute cholecystitis. Nonspecific hypodense lesion in the upper right lobe of the liver. A chest x-ray was obtained showing no acute cardiopulmonary findings. Patient was given IV fluids and admitted to the surgical floor. A transfusion of 1 unit of packed red blood cells was initiated. Overnight, however, was stopped due to a potential reaction as patient's temperature went up to 100.5. He remained tachycardic overnight 100-130. Blood pressure was consistently less than 90 systolic. At approximately 6 a.m. she started having bright red/maroon liquid stools. Repeat hemoglobin this morning at 430 was 6.7. Patient is seen this morning at approximately 730 following a call from nursing staff reporting change in patient's status and concern for severity of illness. Patient continued to have active GI bleeding. Blood pressure down in the 80s systolic. Heart rate up to 150. She is alert and oriented, however, appears weak. She is significantly pale upon examination. She moved to the ICU at this time and stat blood transfusion initiated. Patient has known history of diabetes, hypothyroidism, GERD, depression. She reports she has been taking ibuprofen 400 milligrams twice a day for the last 2 weeks due to pain. Reports blood in her stools, approximately 1 year ago. However, it was brief only lasting one day. Past Medical History Past Medical History Diabetes Hypothyroidism GERD Depression Surgical History Patient's Surgical History: Eye surgery at the age of 8 Current Medications Home Meds Reported Medications Metformin HCl (Metformin HCl) 500 Mg Tablet, 500 MG PO DAILY 02/22/17 Levothyroxine Sodium (Levothyroxine Sodium) 25 Mcg Tablet, 25 MCG PO ACB 02/22/17 Paroxetine HCl (Paroxetine HCl) 20 Mg Tablet, 20 MG PO DAILY 02/22/17 Allergies: Coded Allergies: No Known Allergies (Unverified , 02/22/17) Family History Family History: Father-prostate cancer, hypertension Mother-, CHF Sister with IBS Social History Smoking Status: Never smoker Substance Use Type: does not use Alcohol Intake: none Advance Directives: Yes Full Code, No DPOA for Healthcare Only Social History Comments Primary care provider. Dr. Somers Review of Systems Constitutional: REPORTS: fatigue, weakness Cardiovascular Rhythm/Rate: tachycardia GI Upper Abdomen: hematemesis, nausea, vomiting Lower Abdomen: blood in stool, melena All Other Systems All Other Systems: Reviewed (remainder of 10-point ROS Neg.) Physical Exam General General Nourishment: well nourished, well developed Vital Signs Vital Signs Date Time Temp Pulse Resp B/P Pulse Ox O2 Delivery O2 Flow Rate FiO2 02/23/17 06:21 98.0 111 14 87/61 97 Room Air Height (Feet): 5 Height (Inches): 2.00 Telemetry Rhythm: Sinus Rhythm ENMT Brief: FOUND: mucosa moist Respiratory Brief: FOUND: clear all noyola, equal bilaterally, NOT FOUND: wheezes Cardiovascular (brief) Comments Tachycardic, rate 140 Abdomen (brief) Abdominal Brief: FOUND: BS normo active x4, soft Comments Active GI Bleeding with large amount of maroon stool Integumentary (brief) Integumentary Brief: FOUND: dry, warm Comments Pale Neurologic (brief) Neurological Brief: FOUND: cranial 2-12 intact Neurologic RN Documented GCS Eye Opening: Verbal: Motor: Total: Psychiatric (brief) FOUND: alert, attentive, normal affect, oriented Laboratory Laboratory Tests Test 02/22/17 19:29 02/22/17 19:30 02/22/17 21:45 02/23/17 00:13 Prothromb Time International Ratio 1.22 Activated Partial Thromboplast Time 22.3SEC Turbidity < 20 Sodium Level 142MEQ/L Potassium Level 3.9MEQ/L Chloride Level 110MEQ/L Carbon Dioxide Level 20MEQ/L Anion Gap 12MEQ/L Blood Urea Nitrogen 44.0MG/DL Creatinine 0.9MG/DL Glomerular Filtration Rate Calc 65 BUN/Creatinine Ratio 49RATIO Glucose Level 133MG/DL Calculated Osmolality 286MOSM/KG Calcium Level 8.1MG/DL Total Bilirubin 0.30MG/DL Icterus Index < 2 Aspartate Amino Transf (AST/SGOT) 13U/L Alanine Aminotransferase (ALT/SGPT) 22U/L Alkaline Phosphatase 54U/L Total Protein 5.1G/DL Albumin 2.7G/DL Globulin 2.4G/DL Albumin/Globulin Ratio 1.1RATIO Chemistry Specimen Hemolysis < 15 White Blood Count 16.1T/MM3 Red Blood Count 2.64M/MM3 Hemoglobin 7.7GM/DL Hematocrit 23.8% Mean Corpuscular Volume 90.2UM3 Mean Corpuscular Hemoglobin 29.2UUG Mean Corpuscular Hemoglobin Concent 32.4GM/DL RDW Standard Deviation 39.2FL Platelet Count 204T/MM3 Mean Platelet Volume 10.2UM3 Immature Granulocyte % (Auto) % Neutrophils (%) (Auto) % Lymphocytes (%) (Auto) % Monocytes (%) (Auto) % Eosinophils (%) (Auto) % Basophils (%) (Auto) % Absolute Immature Granulocyte (auto T/MM3 Absolute Neutrophils (auto) T/MM3 Absolute Lymphocytes (auto) T/MM3 Absolute Monocytes (auto) T/MM3 Absolute Eosinophils (auto) T/MM3 Absolute Basophils (auto) T/MM3 Neutrophils % (Manual) 78.0% Lymphocytes % (Manual) 16.0% Monocytes % (Manual) 5.0% Eosinophils % (Manual) 1.0% Absolute Neutrophils (Manual) 12.6T/MM3 Lymphocytes # (Manual) 2.6T/MM3 Monocytes # (Manual) 0.8T/MM3 Eosinophils # (Manual) 0.2T/MM3 Red Cell Morphology Comment Normal Urine Collection Type Cleancatch-midstream Urine Color Yellow Urine Turbidity Sl cloudy Urine pH 5.0 Urine Specific [place] 1.010 Urine Protein Negative Urine Glucose (UA) Negative Urine Ketones Trace Urine Blood 3+ Urine Nitrite Negative Urine Bilirubin Negative Urine Urobilinogen 0.2EU/DL Urine Leukocyte Esterase Negative Glucometer 130mg/dL Test 02/23/17 04:23 02/23/17 05:41 White Blood Count 11.0T/MM3 Red Blood Count 2.26M/MM3 Hemoglobin 6.7GM/DL Hematocrit 19.9% Mean Corpuscular Volume 88.1UM3 Mean Corpuscular Hemoglobin 29.6UUG Mean Corpuscular Hemoglobin Concent 33.7GM/DL RDW Standard Deviation 38.4FL Platelet Count 176T/MM3 Mean Platelet Volume 11.1UM3 Immature Granulocyte % (Auto) 0.2% Neutrophils (%) (Auto) 73.0% Lymphocytes (%) (Auto) 21.7% Monocytes (%) (Auto) 4.5% Eosinophils (%) (Auto) 0.2% Basophils (%) (Auto) 0.4% Absolute Immature Granulocyte (auto 0.02T/MM3 Absolute Neutrophils (auto) 8.0T/MM3 Absolute Lymphocytes (auto) 2.4T/MM3 Absolute Monocytes (auto) 0.5T/MM3 Absolute Eosinophils (auto) 0.0T/MM3 Absolute Basophils (auto) 0.0T/MM3 Turbidity < 20 Sodium Level 142MEQ/L Potassium Level 4.4MEQ/L Chloride Level 115MEQ/L Carbon Dioxide Level 19MEQ/L Anion Gap 8MEQ/L Blood Urea Nitrogen 39.0MG/DL Creatinine 0.7MG/DL Glomerular Filtration Rate Calc 87 BUN/Creatinine Ratio 56RATIO Glucose Level 115MG/DL Calculated Osmolality 283MOSM/KG Calcium Level 7.4MG/DL Icterus Index < 2 Chemistry Specimen Hemolysis < 15 Glucometer 130mg/dL Assessment & Plan Problems: (1) Acute GI bleeding Status: Acute (2) Tachycardia Status: Acute (3) Hypotension Status: Acute Qualifiers: Hypotension type: other hypotension type Qualified Codes: I95.89 - Other hypotension (4) Diabetes mellitus Status: Chronic Qualifiers: Diabetes mellitus type: type 2 (5) NSAID long-term use Status: Chronic (6) Hypothyroidism Status: Chronic (7) GERD (gastroesophageal reflux disease) Status: Chronic (8) Depression Status: Chronic Plan/Intensity of Service Admit patient as a inpatient under the care of Dr Salgado for acute GI bleed Appreciate surgical consultation by Dr Silverio Move patient to ICU for further critical care given severity of illness. Ordered to give 2 units now of packed RBCs. Will repeat Hgb at that time. Have more units ready to give. Continue with IV normal saline. NG tube placed. Patient given Zofran 4 milligrams IV now for nausea Protonix 40 mg IV now and started on Protonix drop started PICC line placed for additional vascular access. Monitor telemetry and tachycardia. She is critically ill at this time. We discussed the need for multiple units of blood transfusions. Discuss further plan of care with attending Dr Salgado 35 minutes spent at the bedside At time of discharge medical care will return to PCP Dr Somers DVT Prophylaxis: SCD'S Code Status Full Code Hospital Course Summary Disclaimer The hospital course summary below is not to be considered part of the above Progress Note. Hospital Course Summary Admit patient as a inpatient under the care of Dr Salgado for acute GI bleed Appreciate surgical consultation by Dr Silverio Move patient to ICU for further critical care given severity of illness. Ordered to give 2 units now of packed RBCs. Will repeat Hgb at that time. Have more units ready to give. Continue with IV normal saline. NG tube placed. Patient given Zofran 4 milligrams IV now for nausea Protonix 40 mg IV now and started on Protonix drop started PICC line placed for additional vascular access. Monitor telemetry and tachycardia. She is critically ill at this time. We discussed the need for multiple units of blood transfusions. Discuss further plan of care with attending Dr Salgado 35 min spent at bedside At time of discharge medical care will return to PCP BRANDI Moeller MD 02/23/17 1354: Past Medical History Current Medications Home Meds Reported Medications Metformin HCl (Metformin HCl) 500 Mg Tablet, 500 MG PO DAILY 02/22/17 Levothyroxine Sodium (Levothyroxine Sodium) 25 Mcg Tablet, 25 MCG PO ACB 02/22/17 Paroxetine HCl (Paroxetine HCl) 20 Mg Tablet, 20 MG PO DAILY 02/22/17 Allergies: Coded Allergies: No Known Allergies (Unverified , 02/22/17) Assessment & Plan Problems: (1) Acute GI bleeding Status: Acute (2) Duodenal ulcer Status: Acute (3) Acute blood loss anemia Status: Acute (4) Tachycardia Status: Acute (5) Hypotension Status: Acute Qualifiers: Hypotension type: other hypotension type Qualified Codes: I95.89 - Other hypotension Assessment & Plan: Secondary to blood loss (6) Diabetes mellitus Status: Chronic Qualifiers: Diabetes mellitus type: type 2 (7) NSAID long-term use Status: Chronic (8) Hypothyroidism Status: Chronic (9) GERD (gastroesophageal reflux disease) Status: Chronic (10) Depression Status: Chronic Plan/Intensity of Service Have independently interviewed and examined pt. Chart reviewed. Case discussed with nursing, Dr Silverio and my WRAPPER REWINDER. Care plan developed with my supervision ; agree with above. Present to ED with weakness and lightheadedness. Vomiting blood and passing black stools. Using NSAIDs for pain. Tachycardic and hypotensive in ED. BP did make increase with IVF. Blood counts low. Admitted and transfusion initiated. Temp elevation occurred and transfusion held. Passed multiple large bloody stools. HGB with further decreased. Moved to CCU for closer supportive care. Lungs: decrease, no wheezes CV: tachy, regular AB; soft nt/nd BS decreased Skin: pale Plan: Inpatient admission, CCU monitoring, Transfuse aggressively due to active bleeding; keep [address] with Dr Silverio - pt underwent EGD showing Large Duodenal ulcer. Protonix to heal ulcer. AVOID NSAIDs. NPO for bowel rest secondary to ulcer. Carafate when able to take op. Monitor hemoglobin closely. SCD for DVT prevention. Monitor blood sugars due to DM. Hold metformin due to hypotension to decrease risk of acidosis. Repeat Hemoglobin after EGD did decrease to 8.6. Will give 1 unit packed call as pt tachycardic and HGB dropped from prior check. Pt remains critically ill. Continued CCU support paramount. APOLINAR MACEDO APRN Feb 23, 2017 09:04 BRANDI SALGADO MD Feb 23, 2017 13:54
--- NOTE | 2017-02-23 09:19 | NUR ---
TRANSFUSION 2ND UNIT PRBC'S INFUSED WITHOUT REACTION NOTED. H AND H DRAWN.
[2017-02-23 09:22] LABS: HGB - HEMOGLOBIN 10.1 GM/DL (12-16)
[2017-02-23] MEDS: PANTOPRAZOLE 80 MG in NORMAL SALINE 250 ML IV SCH ×2 (09:24→19:06)
--- NOTE | 2017-02-23 09:30 | NUR ---
SEGURA INSERTION SEGURA INSERTED BY [facility] M[employer] ADVISOR UNDER SUPERVISION OF THIS RN. STERILE TECHNIQUE USED. 16 SAUDI ARABIAN SEGURA INSERTED X1 ATTEMPT. PT DOES NOT C/O DISCOMFORT DURING INSERTION. IMMEDIATE RETURN OF CLEAR, YELLOW URINE. 10 CC OF STERILE SALINE IN BALLOON. 250 MLS OF CLEAR, YELLOW URINE EMPTIED AFTER INSERTION. CATH SECURE IN PLACE. WILL CONTINUE TO MONITOR.
--- NOTE | 2017-02-23 10:25 | NUR ---
CM PEDROE SCORE IS 8. Addendum: 02/23/17 at 1025 by KANDY WHITMAN SW Amended: Links added.
--- NOTE | 2017-02-23 11:07 | ANESPREOP ---
Anesthesia Record Date and Time DATE: 02/23/17 TIME: 11:03 Pre-Op Diagnosis anemia, GI bleed Proposed Surgical Procedure EGD NPO since: mn Allergies: Coded Allergies: No Known Allergies (Unverified , 02/22/17) Ht/Wt/BMI Height: 5 ' 2.00 " Weight: 65.700 kg BMI: 26.9 kg/m2 Vital Signs Date Time Temp Pulse Resp B/P Pulse Ox O2 Delivery O2 Flow Rate FiO2 02/23/17 09:00 114 14 02/23/17 06:21 98.0 87/61 97 Room Air Medications Inpatient Medications Current Medications Medications (Trade) Dose Ordered Sig/Freddy Start Time Stop Time Status Last Admin Dose Admin Sodium Chloride (Normal Saline IV) 1,000 ml @ 125 mls/hr Q8H 02/22/17 22:01 02/23/17 06:56 125 MLS/HR Morphine Sulfate (Morphine) 2 mg Q3HR PRN 02/22/17 22:15 02/23/17 01:28 2 MG Ondansetron HCl (Zofran) 4 mg Q6H PRN 02/22/17 22:15 02/23/17 08:27 4 MG Pantoprazole Sodium (Protonix Iv) 40 mg Q12H 02/22/17 22:15 02/23/17 08:32 40 MG Glucose (Glutose 15) 37.5 g PRN PRN 02/22/17 22:15 Dextrose (D50w) 25 ml PRN PRN 02/22/17 22:15 Insulin Aspart SS PRN 02/22/17 22:15 Sodium Chloride (NS) 500 ml @ 0 mls/hr Q0M 02/22/17 22:01 02/23/17 08:49 DC 02/23/17 00:05 30 MLS/HR Lorazepam (Ativan) 0.5 mg HS PRN 02/22/17 23:30 02/23/17 00:03 0.5 MG Levothyroxine Sodium (Synthroid) 25 mcg ACB 02/23/17 06:30 02/23/17 07:24 25 MCG Paroxetine HCl (Paxil) 20 mg DAILY 02/23/17 09:00 Acetaminophen 650 mg 650 mg Q5H PRN 02/23/17 02:30 02/23/17 02:35 650 MG Sodium Chloride 500 ml @ 250 mls/hr Q2H 02/23/17 04:30 02/23/17 06:46 DC 02/23/17 04:52 250 MLS/HR Sodium Chloride 500 ml @ 0 mls/hr Q0M 02/23/17 06:25 02/23/17 23:59 Pantoprazole Sodium/Sodium Chloride (Protonix Iv/NS) 250 ml @ 25 mls/hr Q10H 02/23/17 09:00 02/23/17 09:24 25 MLS/HR Levothyroxine Sodium (Levothyroxine Sodium) 25 Mcg Tablet, 25 MCG PO ACB, ( Reported) Last Taken: on 02/22/17 0800 Metformin HCl (Metformin HCl) 500 Mg Tablet, 500 MG PO DAILY, (Reported) Last Taken: on 02/22/17 0800 Paroxetine HCl (Paroxetine HCl) 20 Mg Tablet, 20 MG PO DAILY, (Reported) Last Taken: on 02/22/17 0800 Currently on Beta Rocael: No Medical/Surgical History Anesthesia PMH: Reports: *Diabetes (does not check blood sugars at home ), Anxiety, Depression, Reflux, Thyroid Disease, Denies: *Hypertension, *OK, Asthma , Blood Transfusion Reac, CHF, COPD, CVA/Stroke/TIA, Cancer, Seizures Smoking Status: Never smoker Substance Use Type: does not use HX of Last Menstrual Period: MENOPAUSE Past Surgical History Orthopedic Surgeries: No Abdominal Surgeries: No Genitourinary Surgeries: No Cardiac Surgeries: No Endocrine Surgeries: No Reproductive Surgeries: No Neurological Surgeries: No Ear Surgeries: No Nose Surgeries: No Throat Surgeries: No Other Surgeries: No Anesthesia Adverse Reactions: FOUND none Family Hx of Anesthesia Advers: none Hx of Motion Sickness: No Pertinent Findings Laboratory Tests 02/23/17 04:23 02/23/17 09:12 Test 02/22/17 19:29 Activated Partial Thromboplast Time 22.3SEC (24-36) Prothromb Time International Ratio 1.22 (0.76-1.04) EKG Rhythm: Sinus Tachycardia Physical Exam Respiratory: Bilat breath sounds equal, Lungs clear Cardiovascular: FOUND Regular rate, rhythm, FOUND No murmur Airway Assessment Mallampati Score: II Overall Assessment: No Airway Concerns ASA: 3 Plan Anesthesia Plan: TIVA Discussion Discussed risks/options/alternatives of anesthesia and questions answered. Patient consents. Nursing pain assessment noted. Attestation Statement Prior to the delivery of any anesthetic medication, I examined the patient, developed the plan, obtained the patient's consent and discussed the risk and benefits of the procedure with the patient/guardian. ADRIAN GASCA LACE CUTTER Feb 23, 2017 11:06
[2017-02-23] MEDS ORDERED: LIDOCAINE 2% (20mg/ml) 5ml PF SDV ONE (11:18)
[2017-02-23] MEDS ORDERED: PROPOFOL 200mg 20 ML IV ONE ×2 (11:18→12:16)
--- NOTE | 2017-02-23 11:30 | NUR ---
STATUS LARGE BRIGHT RED INCONT STOOL. HR 130 AT THIS TIME. HR HAD DECREASED IMMED FOLLOWING BLOOD TRANSFUSION TO 110'S. BP STABLE 90'S -110'S.
--- NOTE | 2017-02-23 11:37 | CONSF ---
DATE OF CONSULTATION 02/23/2017 FINDINGS Mrs. Gutierres is a 56-year-old female whom I was asked to see this morning as a result of her anemia, melanotic stools and hemodynamic instability. Mrs. Gutierres informs me that yesterday she began to notice that she was passing some blood per rectum. As the day progressed she continued to have ongoing bleeding and presented to our emergency room for further evaluation. The patient was subsequently admitted to our institution for further care. Upon questioning the patient, she states that she has been intermittently taking ibuprofen as a result of some knee discomfort. She informs me that she has been taking ibuprofen over the course of the last week or more about on an every 12 hour basis. Patient states she has had some mild abdominal discomfort but denies any history for severe abdominal pain. Patient states that yesterday that her father had found her on the floor and had notified EMS. The patient states that she has been feeling somewhat more weak and fatigued over the course of the last week or more. Patient states that this morning she also felt quite dizzy as if she was going to "pass out." PAST MEDICAL HISTORY Performed by my nurse practitioner, Jerardo Cha. PAST SURGICAL HISTORY Performed by my nurse practitioner, Jerardo Cha. MEDICATIONS Performed by my nurse practitionerJerardo. ALLERGIES Performed by my nurse practitionerJerardo. SOCIAL HISTORY Performed by my nurse practitionerJerardo. FAMILY HISTORY Performed by my nurse practitionerJerardo. REVIEW OF SYSTEMS Performed by my nurse practitionerJerardo. PHYSICAL EXAMINATION GENERAL: Mrs. Gutierres is a 56-year-old female who did appear pale upon entering the ICU this morning. She did not appear to be in acute distress. VITALS: Temperature 98.0. Pulse 111. Respiratory rate 14. Blood pressure 87/61. SAO2 97% on room air. HEENT: Normocephalic. Pupils are equally round and react to light and accommodation. NECK: Supple without lymphadenopathy. CHEST: Clear to auscultation bilaterally. HEART: Regular rate and rhythm. Normal S1, S2, without gallops, murmurs or clicks. ABDOMEN: Soft, nontender. Palpation throughout the abdomen did not elicit any tenderness to the patient. There was no evidence for hepatomegaly or other abnormal masses. EXTREMITIES: Without clubbing, cyanosis, or edema. NEURO: Cranial nerves II-XII grossly intact. Patient without focal, motor, or sensory deficits. LABORATORY/RADIOGRAPHIC EVALUATION The patient's hemoglobin on admission was 7.7. Her hemoglobin at 4 o'clock this morning was 6.7. INR, PTT were obtained and found to be within normal limits. CMP was obtained upon admission; her BUN was elevated at 44.0 consistent with the GI bleed. BMP was obtained today. Calcium is low at 7.4. Chloride is elevated at 115. BUN remains elevated at 39.0. ASSESSMENT 56-year-old female with probable upper GI bleed. PLAN After being notified of the patient's condition this morning when she was out on the floor, it was my recommendation that she be moved to the ICU. It was my recommendation that she immediately receive blood products given her anemia and hypotension. I also had requested that an NG be placed to see if indeed there is rita blood that could be suctioned from the stomach. Upon entering the ICU, one could see some blood within the NG tube. I agree with the current management of the patient. She is being treated empirically for peptic ulcer disease and in the process of being placed on a Protonix IV drip. I would recommend that we check her hemoglobin after two units of blood. If she still remains at around a hemoglobin of 8, I would recommend additional two units of transfusion of blood. Would recommend that once the patient has become stabilized that we proceed with upper endoscopy/esophagogastroduodenoscopy. Hopefully the patient's bleeding will begin to subside and she will be able to be stabilized after transfusion. Will continue to follow along the patient's care. If the patient continues with ongoing bleeding and hemodynamic instability she may ultimately require surgical intervention. IBRAHIMA
--- NOTE | 2017-02-23 11:40 | NUR ---
TO OR PRE BED ACCOMP BY GISSEL GUZMÁN RN. CONSENT FORM SIGNED BY FATHER R/T GENERALIZED WEAKNESS.
--- NOTE | 2017-02-23 12:45 | GSPOSTPN ---
Procedure Procedure Date: Feb 23, 2017 Surgeon: Kavita ASA: 3 Procedure EGD with deployment of clip in Epinephrin injection at ulcer site GS Diagnosis Postop Diagnosis Bleeding duodenal ulcer Complications Complications Estimated Blood Loss See Anesthesia Record. Vital Signs See Anesthesia and PACU record. ALFREDA GUERRA CHAIN SAW OPERATOR Feb 23, 2017 12:45
[2017-02-23] MEDS ORDERED: EPINEPHRINE 1mg/ml INJECTION AMP ONE (12:46)
[2017-02-23] MEDS ORDERED: SALINE FLUSH 10ml SYRINGE ONE ×2 (12:46)
--- NOTE | 2017-02-23 13:10 | ANESPO ---
Post-Op Note Date 02/23/17 Time: 13:05 Status Pt Participated in Evaluation: Pt participated in person Vital Signs Date Time Temp Pulse Resp B/P Pulse Ox O2 Delivery O2 Flow Rate FiO2 02/23/17 12:52 97.0 113 20 125/70 95 Nasal Cannula 2.00 Respiratory Function: Airway patent Cardiovascular Function: Regular pulse Mental Status: Alert/oriented Pain Level Intensity: 0 Unable to Assess Pain Due To: Pt Sleeping Hydration: IV infusing Complications during Recovery None apparent Follow-Up Instructions Instructions Per Surgeon ADRIAN GASCA CRNA Feb 23, 2017 13:10
[2017-02-23 13:23] LABS: HCT - HEMATOCRIT 25.3 % (36-46); HGB - HEMOGLOBIN 8.6 GM/DL (12-16)
--- NOTE | 2017-02-23 13:28 | NUR ---
STATUS RETURNED FROM OR AT 1232, PACU RECOVERY IN CCU ROOM 6 BY Devin RODRIGUEZ RN. NG TUBE FOUND TO BE COILED IN BACK OF THROAT, REMOVED, REPLACED WITH 16 FR WITHOUT DIFFICULTY. NOW AWAKE, ALERT, VS STABLE ALTHO REMAINS IN SINUS TACH WITH RATE 120. O2 2 L PER NC.
[2017-02-23] MEDS ORDERED: BELLADONNA-OPIUM 16.2-60mg SUPP RECTALLY PRN (13:45)
--- NOTE | 2017-02-23 13:45 | NUR ---
REPORT TO DR PATEL WITH ORDERS NOTED. BEDSIDE REPORT TO Jory GRUBBS RN.
--- NOTE | 2017-02-23 15:19 | CONSPD ---
Consultation Info Date DATE: 02/23/17 TIME: 15:18 Date of Consultation: Feb 23, 2017 Reason for Consultation: Gi bleed HPI - Adult Date DATE: 02/23/17 TIME: 15:18 General Chief Complaint: Gi Bleeding History of Present Illness Per Dr. Sivlerio Past Medical History Past Medical History Diabetes Hypothyroidism GERD Depression Surgical History Patient's Surgical History: Eye surgery at the age of 8 Current Medications Home Meds Reported Medications Metformin HCl (Metformin HCl) 500 Mg Tablet, 500 MG PO DAILY 02/22/17 Levothyroxine Sodium (Levothyroxine Sodium) 25 Mcg Tablet, 25 MCG PO ACB 02/22/17 Paroxetine HCl (Paroxetine HCl) 20 Mg Tablet, 20 MG PO DAILY 02/22/17 Allergies: Coded Allergies: No Known Allergies (Unverified , 02/22/17) Family History Family History: Father-prostate cancer, hypertension Mother-, CHF Sister with IBS Social History Smoking Status: Never smoker Substance Use Type: does not use Alcohol Intake: none Advance Directives: Yes Full Code, No DPOA for Healthcare Only GS Review of Systems 10-point Review of Systems unobtainable (due to clinical state) GS Physical Exam Vital Signs Date Time Temp Pulse Resp B/P Pulse Ox O2 Delivery O2 Flow Rate FiO2 02/23/17 13:30 120 20 02/23/17 13:17 97.4 125/79 100 Nasal Cannula 2.00 Height (Feet): 5 Height (Inches): 2.00 Weight (Kilograms): 65.700 BMI 26.9 Laboratory Laboratory Tests 02/22/17 19:29 02/23/17 04:23 Laboratory Tests 02/22/17 19:30 02/23/17 04:23 02/23/17 09:12 02/23/17 13:08 ALFREDA GUERRA CERTIFIED SURGICAL TECH/FIRST ASSISTANT Feb 23, 2017 15:19
--- NOTE | 2017-02-23 15:53 | NUR ---
CM THIS WORKER SPOKE WITH PT'S FATHER AND SISTER (SINCE PT WAS AT AN EGD). THIS WORKER INTRODUCED SELF, EXPLAINED ROLE, AND PROVIDED CONTACT INFO. THIS WORKER GATHERED INFORMATION FROM THE FAMILY: FATHER STATED PT LIVES WITH HIM IN [place], [place]. SISTER STATED PT IS PENDING DISABILITY. THIS WORKER WILL FOLLOW FOR DC PLANNING NEEDS. Addendum: 02/23/17 at 1555 by KANDY PARKS Amended: Links added.
[2017-02-23 18:02] LABS: HGB - HEMOGLOBIN 10.1 GM/DL (12-16)
--- NOTE | 2017-02-23 20:55 | OPNOTEF ---
DATE OF SERVICE 02/23/2017 SURGEON Ankur Silverio MD PREOPERATIVE DIAGNOSES Probable upper GI bleed, history for melena, history for anemia. POSTOPERATIVE DIAGNOSES Probable upper GI bleed, history for melena, history for anemia. Duodenal ulcer involving first portion of the duodenum with associated visible vessel junction between first and second portion of duodenum. PROCEDURE Esophagogastroduodenoscopy with attempt of deployment of clip, injection of epinephrine solution surrounding bleeding ulcer. ANESTHESIA TIVA BRIEF HISTORY/INDICATIONS Mrs. Gutierres is a 56-year-old female whom I was asked to see earlier this morning as a result of her history for melena and the finding of marked anemia upon laboratory evaluation. The patient was somewhat hemodynamically unstable and was given 3 units of blood. Repeat hemoglobin was obtained and found to be appropriate at 10.0. The patient was hemodynamically stable. It was recommended that she undergo upper endoscopy for further evaluation as a result of the above indications. NARRATIVE OF PROCEDURE After informed consent was obtained the patient was brought to the endoscopy suite and placed in the left lateral decubitus position. The patient subsequently underwent total intravenous anesthesia by the nurse heart surgeon at my request. Formal time-out was then completed. Next, an Olympus gastroscope was inserted into the oral hypopharynx and subsequently the esophagus under direct visualization. Gastroscope was advanced through the esophagus, stomach, and into the prepyloric region. Pylorus did appear to be somewhat inflamed and narrowed to some extent. Gastroscope was advanced through the pylorus and one could then see a large duodenal ulcer involving the first portion of the duodenum. The scope was then advanced past the duodenal bulb and into the second and third portions of the duodenum. Scope was slowly withdrawn. At the junction between the first and second portion of the duodenum one could see a small vessel that was not actively bleeding but was protruding slightly from the mucosa. This bleeding vessel was just beyond the larger ulcer in the duodenum. I elected to place a clip upon this visible vessel. Clip device was advanced through the gastroscope and the clip was placed overlying the ulcer itself. Clip was then deployed and unfortunately was placed not upon the vessel but to the side of the vessel. This clip did not stay attached to the mucosa and continued on downstream. A new clip device was then obtained and placed once again right overlying the ulcer. It was hard to place the clip at this location as a result of the fact that the area of concern had somewhat of a "sharp bend" just beyond the duodenal bulb. In fact, the clip would not deploy at this location and the gastroscope was advanced back into the prepyloric region and the clip was then advanced out to a point that it was visible. The gastroscope was then advanced passed through the pylorus and the clip was then placed overlying the ulcer. Gentle pressure was applied and repeat deployment of the clip was again performed. This time the clip was in the correct place and was attached to the vessel itself. Unfortunately, however, since there was a degree of angulation of the gastroscope, the clip, even though it had been deployed, was not becoming detached from the clip device itself. I did attempt to advance the clip device further and twist the clip device to some extent so that the clip would become unattached. This, however, was to no avail. The clip device was then begun to be pulled back inward, hoping that the clip would detach from the device itself. One could clearly feel "two clicks" upon the device at the time of deployment. Unfortunately, the clip did not become detached from the device and bleeding began to occur. Gastroscope was then advanced back to the site of the bleeding and essentially pressure was held overlying this area for a minute or two. Irrigation was then performed and one could see the site of bleeding. Epinephrine solution was then utilized. An injection needle was then advanced through the gastroscope. 1 mL of epinephrine solution 1:1000 was placed with 9 mL of normal saline. About 2 mL of epinephrine solution was injected circumferentially around the bleeding site. This did result in complete hemostasis. There was no evidence of bleeding at this time. The gastroscope was withdrawn back into the prepyloric region and subsequently withdrawn back up into the GE junction. No ulcerations were noted at the GE junction. Squamocolumnar junction was well demarcated with no endoscopic evidence for Gupta's metaplasia. Additionally, no abnormalities were noted within the gastric lumen. J-maneuver had been performed and no abnormalities were noted within the fundal portion or cardia of the stomach. Scope was then continued to be slowly withdrawn and the remainder esophagus was found to be within normal limits. Patient tolerated the procedure without difficulty and was sent back to the ICU once deemed in stable condition. It is my plan at this point in time to continue to follow the patient with serial hemoglobins and serial examinations. If she would develop recurrent bleeding the patient may require transfer to [place] for Interventional Radiology capabilities. IBRAHIMA
--- NOTE | 2017-02-23 21:00 | NUR ---
STATUS SLEEPING AT INTERVALS. NEEDS ASSIST WITH TURNS. NG TO LIS, IRRIGATED. NO STOOLS THIS EVENING. FAMILY HERE TO SEE PT.
[2017-02-23] MEDS: SUCRALFATE 1 G TABLET PO SCH (21:18)
[2017-02-24] VITALS (54 sets, daily range): BP systolic 76–142; BP diastolic 39–73; PULSE 76–124; RESP 2–27; TEMP 98.2–98.8; O2SAT 91–100
[2017-02-24 00:22] LABS: HGB - HEMOGLOBIN 8.3 GM/DL (12-16)
[2017-02-24] MEDS: MORPHINE SULFATE 2 MG SYRINGE IV PRN ×2 (00:35→03:25)
--- NOTE | 2017-02-24 00:35 | NUR ---
PAIN MS 2MG IV GIVEN PER REQUEST FOR TOOTH ACHE ON LEFT SIDE. RETURNED TO SLEEP.
[2017-02-24] MEDS: SORE THROAT SPRAY 20ml PO PRN ×2 (03:27→08:43)
--- NOTE | 2017-02-24 03:32 | NUR ---
COMFORT C/O MOUTH/TOOTH PAIN 10/10. MS 2 MG IVP SLOWLY GIVEN. CHLORASEPTIC SPRAY TO THROAT AND TOOTH. DENIES ABD TENDERNESS , NAUSEA OR ABD DISCOMFORT.
[2017-02-24 05:10] LABS: BASOPHILS % (AUTO) 0.3 % (0-2); EOSINOPHILS % (AUTO) 0.2 % (0-4); HCT - HEMATOCRIT 21.7 % (36-46); HGB - HEMOGLOBIN 7.5 GM/DL (12-16); IMMATURE GRANULOCYTE # (AUTO) 0.05 T/MM3 (0.00-0.03); IMMATURE GRANULOCYTE % (AUTO) 0.4 % (0.0-0.5); LYMPHOCYTES # (AUTO) 3.8 T/MM3 (1-4.8); LYMPHOCYTES % (AUTO) 27.1 % (23-45); MEAN CORPUSCULAR HGB 29.9 UUG (26-34); MEAN CORPUSCULAR HGB CONC(MCHC 34.6 GM/DL (31-37); MEAN CORPUSCULAR VOLUME 86.5 UM3 (80-100); MEAN PLATELET VOLUME 10.7 UM3 (9.4-12.4); MONOCYTES % (AUTO) 6.8 % (0-9.0); NEUTROPHILS #(AUTO)-ABSOLUTE 9.2 T/MM3 (1.8-7.7); NEUTROPHILS % (AUTO) 65.2 % (33-66); RED BLOOD COUNT 2.51 M/MM3 (4.00-5.20); WBC - WHITE BLOOD COUNT 14.1 T/MM3 (4.5-11.0)
[2017-02-24 05:13] LABS: ANION GAP 4 MEQ/L (5-15); BUN/CREATININE RATIO 31 RATIO (6-26); CALCIUM 7.1 MG/DL (8.4-10.2); CHLORIDE 116 MEQ/L (98-107); CO2 - CARBON DIOXIDE 23 MEQ/L (22-30); CREATININE 0.7 MG/DL (0.7-1.2); GLOMERULAR FILTRATION RATE 87; GLUCOSE 106 MG/DL (65-110); POTASSIUM 3.7 MEQ/L (3.6-5); SODIUM 143 MEQ/L (134-144)
[2017-02-24 05:44] LABS: THYROID STIM HORMONE-TSH 9.39 MIU/L (0.47-4.68)
[2017-02-24] MEDS: LEVOTHYROXINE 25 MCG TABLET PO SCH (06:31)
[2017-02-24] MEDS: SUCRALFATE 1 G TABLET PO SCH ×4 (06:31→20:59)
--- NOTE | 2017-02-24 06:35 | NUR ---
STATUS RESTS MORE COMFORTABLY AFTER MS. DENIES ABD DISCOMFORT AND NAUSEA. NO STOOLS THIS SHIFT. MINIMAL BROWNISH DRAINAGE PER NG TUBE.
[2017-02-24] MEDS: NORMAL SALINE 1,000 ML IV SCH ×4 (07:11→20:59)
[2017-02-24] MEDS: PANTOPRAZOLE 80 MG in NORMAL SALINE 250 ML IV SCH ×2 (07:17→17:42)
--- NOTE | 2017-02-24 08:16 | PNPDOC ---
Subjective Date DATE: 02/24/17 TIME: 07:54 Subjective The patient states she's feeling okay this morning. She has some mild dental pain in her right and left lower jaw. She has some mild sore throat from her NG tube. She denies any abdominal pain. She denies any chest discomfort. She denies shortness of breath. She has a Philip catheter in place. She has not had a bowel movement since yesterday afternoon. She denies any lightheadedness but she has not sat up or gotten out of bed. She has an NG tube in place and output has been brown. Overnight heart rate was in the 90s to 100s. Objective Vital Signs Vital signs Vital Signs Date Time Temp Pulse Resp B/P Pulse Ox O2 Delivery O2 Flow Rate FiO2 02/24/17 06:38 Room Air 02/24/17 06:30 101 14 95/53 100 2.00 02/24/17 00:12 98.2 Heart rate at rest is around 100. Heart rate standing is 135 Cumulative I&O is 8000/1800 and +[phone] GEN-alert, oriented, very pale, no acute distress HEENT-sclera anicteric, disconjugate gaze with history of surgery on the left eye, mucous membranes very pale and no obvious dental abscesses or oral infection seen on exam NECK-supple CV-tachycardic rate with irregular rhythm, 3/6 systolic murmur CHEST-there to auscultation bilaterally ABD-soft, nontender, nondistended with positive bowel sounds -Philip catheter in place with light colored urine EXT-no edema, SCDs are on, flexion of right ankle is chronic NEURO-no focal deficits other than disconjugate gaze and flexion of right ankle SKIN-pale, warm and dry and without rashes Telemetry Rhythm: Sinus Rhythm Height (Feet): 5 Height (Inches): 2.00 Weight (Kilograms): 65.700 Laboratory Laboratory Laboratory Tests 02/22/17 19:29 02/23/17 04:23 02/24/17 04:56 Laboratory Tests 02/22/17 19:30 02/23/17 04:23 02/23/17 09:12 02/23/17 13:08 02/23/17 17:49 02/23/17 21:15 02/24/17 00:15 02/24/17 04:56 Microbiology Microbiology Microbiology Date/Time Source Procedure Growth Status 02/23/17 07:07 Peripheral/Iv Start Blood Culture - Preliminary NO GROWTH AFTER 24 HOURS Resulted Radiology Findings: CT ABDOMEN: Included portions of the lung bases are clear. Heart size normal. No pleural effusion. There is a nonspecific hypodense lesion in the upper right lobe of the liver that measures 2.0 x 1.5 cm. The spleen, kidneys, pancreas, and adrenal glands are normal. The gallbladder is thin-walled and nondistended with at least one small calcified gallstone in the gallbladder neck. The abdominal aorta is non-aneurysmal, without significant atherosclerotic disease. There is no retroperitoneal or mesenteric adenopathy CT PELVIS: A normal appendix is not identified with certainty. There is no significant distal colonic diverticulosis or evidence for diverticulitis. The uterus and ovaries are unremarkable. There is no pelvic sidewall adenopathy. No free fluid. No definite bony destructive process. IMPRESSION: Cholelithiasis without evidence for cholecystitis. Nonspecific hypodense lesion in the upper right lobe of the liver measuring 2.0 x 1.5 cm. No evidence for infectious or inflammatory process. No evidence for mass or adenopathy. Chest x-ray shows no acute cardiopulmonary abnormalities Assessment & Plan Problems: (1) Acute GI bleeding Status: Acute (2) Duodenal ulcer Status: Acute (3) Acute blood loss anemia Status: Acute (4) Tachycardia Status: Acute (5) Hypotension Status: Acute Qualifiers: Hypotension type: other hypotension type Qualified Codes: I95.89 - Other hypotension Assessment & Plan: Secondary to blood loss (6) Diabetes mellitus Status: Chronic Qualifiers: Diabetes mellitus type: type 2 (7) NSAID long-term use Status: Chronic (8) Hypothyroidism Status: Chronic (9) GERD (gastroesophageal reflux disease) Status: Chronic (10) Depression Status: Chronic Assessment Impression Bleeding duodenal ulcer Acute blood loss anemia-status post 3+ units transfused. Hemoglobin was as low as 6.7 initially and improved to 10.1 after 3 units of blood. Hemoglobin is now trending down over the past 12 hours and is now 7.5 Hypotension Leukocytosis Mild thrombocytopenia Type 2 diabetes mellitus-on metformin at home Anxiety/depression GERD Hypothyroidism with mildly elevated TSH of 9.39 Plan Continue to monitor closely in CCU. May need further transfusion for acute blood loss anemia. The patient is tachycardic with standing and has borderline hypotension. Continue nothing by mouth status, protonic drip, IV fluids Continue oral Synthroid and antidepressant. Continue to monitor Accu-Cheks closely and give sliding scale insulin if needed. Await iron and B-12 testing. Continue every 6 hours hemoglobin. Greater than 40 minutes of critical care time spent seeing and evaluating the patient today. DVT Prophylaxis: SCD'S Code Status Full Code Hospital Course Summary Disclaimer The hospital course summary below is not to be considered part of the above Progress Note. Hospital Course Summary Admit patient as a inpatient under the care of Dr Salgado for acute GI bleed Appreciate surgical consultation by Dr Silverio Move patient to ICU for further critical care given severity of illness. Ordered to give 2 units now of packed RBCs. Will repeat Hgb at that time. Have more units ready to give. Continue with IV normal saline. NG tube placed. Patient given Zofran 4 milligrams IV now for nausea Protonix 40 mg IV now and started on Protonix drop started PICC line placed for additional vascular access. Monitor telemetry and tachycardia. She is critically ill at this time. We discussed the need for multiple units of blood transfusions. Discuss further plan of care with attending Dr Salgado 35 min spent at bedside At time of discharge medical care will return to PCP ANGELA Raymundo MD Feb 24, 2017 07:57
[2017-02-24] MEDS: PAROXETINE 20 MG TABLET PO SCH (08:42)
[2017-02-24] MEDS: ACETAMINOPHEN 325 MG TABLET PO PRN (08:43)
--- NOTE | 2017-02-24 09:33 | NUR ---
Morning Cares Bath provided to pt in bed. Pt participated in care. Pt denied dizziness when moving. Orthostatic VS taken sitting; 142/73 standing; 117/68, P 124 Pt back in bed resting very comfortably. Does c/o pain to teeth- top left side and bottom right side. Tylenol provided for pain. Pt took pills whole around NG tube. Tube clamped for 1 hour after taking pills. Will continue to monitor.
[2017-02-24 10:09] LABS: HGB - HEMOGLOBIN 7.3 GM/DL (12-16)
[2017-02-24] MEDS ORDERED: DiphenhydrAMINE 25 MG CAPSULE PO ONE (10:45)
--- NOTE | 2017-02-24 11:25 | NUR ---
JENNYFER CM VISITED WITH PT AND FAMILY. CM EXPLAINED ROLE AND PROVIDED CONTACT INFORMATION. PT LIVES HOME WITH FATHER. PT DENIES HOME NEEDS AND IS AWARE TO CALL CM SHOULD NEEDS ARISE.
--- NOTE | 2017-02-24 13:18 | NUR ---
Dm screen Diet: Clear Liquid Based on [place], with an activity factor of 1.3 and an injury factor of 1.1 calorie needs are ~1725kcal Patient validated all positive diabetes self care behaviors, including following a low-carb diet, taking metformin everyday, and having diabetes education. Patient states she checks her blood sugar after meals, and reports her blood sugar readings always being in the 120's. international travel consultant reviewed and provided "Healthy eating 1,2,3" hand-out with the patient. The patient seems receptive to the information and even asked for clarity on "carb" generalizations she had heard. When diet advances dietetic student recommends 1800kcal CC diet RD available @ 1400 Addendum: 02/24/17 at [address] Student charting reviewed by Clay Miner.
--- NOTE | 2017-02-24 15:12 | NUR ---
Status Pt tolerated 1 unit of blood well. Tylenol had been given prior to tooth pain so only Benedryl was given prior to starting blood. Pt has been very sleepy, but did eat 1 jello, 1 apple juice, and some broth. NG tube was pulled per orders prior to. No stools noted this shift. Will continue to monitor.
[2017-02-24 16:30] LABS: HGB - HEMOGLOBIN 8.7 GM/DL (12-16)
--- NOTE | 2017-02-24 18:51 | PNF ---
DATE OF SERVICE 02/24/2017 FINDINGS Mrs. Rodas this morning was seen earlier on rounds. She denied significant abdominal pain. EXAM Vitals: Afebrile, normotensive. Please refer to EMR. Last recorded vitals include temperature 98.6, pulse 91, respirations 17, blood pressure 101/52, SAO2 95% room air, HEENT: Normocephalic. Pupils are equally round and react to light and accommodation. CHEST: Clear to auscultation bilaterally. HEART: Regular rate and rhythm. Normal S1 and S2 without gallops, murmurs or clicks. ABDOMEN: Palpation of the abdomen earlier this morning revealed it to be soft and nontender. LABORATORY/RADIOGRAPHIC EVALUATION Overall, the patient's hemoglobin has been fairly stable. She did drift downward and received an additional unit of blood. Her current hemoglobin is 8.7. CMP was obtained and found to be without marked abnormalities. ASSESSMENT 56-year-old female with bleeding duodenal ulcer. The patient remains clinically stable at this time. PLAN Upon questioning the patient earlier this morning she had had no further bloody stools. I did go ahead and give her some clear liquids. Will continue with IV Protonix drip and Carafate. Will continue to follow with serial hemoglobins. MTDD
[2017-02-24 22:04] LABS: HGB - HEMOGLOBIN 7.9 GM/DL (12-16)
[2017-02-25] VITALS (30 sets, daily range): BP systolic 84–133; BP diastolic 50–78; PULSE 79–118; RESP 12–33; TEMP 98.9–99.5; O2SAT 93–100
[2017-02-25 04:24] LABS: FERRITIN 19.3 NG/ML (11-264)
[2017-02-25] MEDS: PANTOPRAZOLE 80 MG in NORMAL SALINE 250 ML IV SCH ×2 (04:28→17:31)
[2017-02-25] MEDS: LEVOTHYROXINE 25 MCG TABLET PO SCH (05:47)
[2017-02-25] MEDS: SUCRALFATE 1 G TABLET PO SCH ×4 (05:47→21:54)
[2017-02-25 05:59] LABS: BASOPHILS % (AUTO) 0.5 % (0-2); EOSINOPHILS # (AUTO) 0.3 T/MM3 (0-0.5); EOSINOPHILS % (AUTO) 3.4 % (0-4); HCT - HEMATOCRIT 22.9 % (36-46); HGB - HEMOGLOBIN 7.9 GM/DL (12-16); IMMATURE GRANULOCYTE # (AUTO) 0.03 T/MM3 (0.00-0.03); IMMATURE GRANULOCYTE % (AUTO) 0.3 % (0.0-0.5); LYMPHOCYTES # (AUTO) 2.4 T/MM3 (1-4.8); LYMPHOCYTES % (AUTO) 27.4 % (23-45); MEAN CORPUSCULAR HGB 30.3 UUG (26-34); MEAN CORPUSCULAR HGB CONC(MCHC 34.5 GM/DL (31-37); MEAN CORPUSCULAR VOLUME 87.7 UM3 (80-100); MEAN PLATELET VOLUME 10.7 UM3 (9.4-12.4); MONOCYTES # (AUTO) 0.6 T/MM3 (0-0.8); MONOCYTES % (AUTO) 6.6 % (0-9.0); NEUTROPHILS #(AUTO)-ABSOLUTE 5.4 T/MM3 (1.8-7.7); NEUTROPHILS % (AUTO) 61.8 % (33-66); RED BLOOD COUNT 2.61 M/MM3 (4.00-5.20); WBC - WHITE BLOOD COUNT 8.8 T/MM3 (4.5-11.0)
[2017-02-25 06:08] LABS: ANION GAP 6 MEQ/L (5-15); BUN/CREATININE RATIO 13 RATIO (6-26); CALCIUM 7.4 MG/DL (8.4-10.2); CHLORIDE 114 MEQ/L (98-107); CO2 - CARBON DIOXIDE 25 MEQ/L (22-30); CREATININE 0.7 MG/DL (0.7-1.2); GLOMERULAR FILTRATION RATE 87; GLUCOSE 89 MG/DL (65-110); MAGNESIUM 1.8 MG/DL (1.6-2.3); PHOSPHORUS 1.8 MG/DL (2.5-4.5); POTASSIUM 3.2 MEQ/L (3.6-5); SODIUM 145 MEQ/L (134-144)
--- NOTE | 2017-02-25 06:30 | NUR ---
Status Pt slept very well during night. Pt denies pain, SOA, nausea during night. Pt incontinent of small, bloody/black/brown BM this am. Pt HR has been 70's to 110 during night, mostly 80's to low 100's. SBP mostly 90's to low 100's during night. Pt pleasant and cooperative with cares. Pt assisted with position changes throughout night as she allowed. Urine output during night has been copious. Bed alarm on, will continue to monitor.
[2017-02-25] MEDS: NORMAL SALINE 1,000 ML IV SCH (07:56)
--- NOTE | 2017-02-25 09:59 | PNPDOC ---
Subjective Date DATE: 02/25/17 TIME: 09:41 Subjective The patient states she is feeling well this morning. She has a mild headache today. No dental pain today. She denies any abdominal pain but states her abdomen feels a little bloated. She denies any shortness of breath, chest pain or lightheadedness. She denies any nausea. She does feel hungry. She has a Philip catheter in place with good urine output. She states she slept okay last night. She had one small dark liquid stool this morning. Objective Vital Signs Vital signs Vital Signs Date Time Temp Pulse Resp B/P Pulse Ox O2 Delivery O2 Flow Rate FiO2 02/25/17 04:00 99.2 98 15 92/52 95 Room Air 02/24/17 06:30 2.00 GEN-alert, oriented, no acute distress HEENT-sclera anicteric, mild lead edematous appearing in the face NECK-supple CV-regular rate and rhythm CHEST-clear to auscultation bilaterally ABD-soft, nontender, nondistended with positive bowel sounds -no Philip EXT-nonpitting edema in the upper extremities, no edema in the legs, SCDs are on NEURO-no focal deficits SKIN-warm and dry without rashes Telemetry Rhythm: Sinus Rhythm Height (Feet): 5 Height (Inches): 2.00 Weight (Kilograms): 65.700 Laboratory Laboratory Item Value Date Time Calcium Level 7.4 MG/DL L 02/25/17 0539 Phosphorus Level 1.8 MG/DL L 02/25/17 0539 Albumin 2.0 G/DL L 02/25/17 0539 Iron Level 168 UG/DL 02/23/17 0423 Ferritin 19.3 NG/ML 02/23/17 0423 Vitamin B12 Level 342 PG/ML 02/23/17 0423 Laboratory Tests 02/24/17 04:56 02/25/17 05:39 Laboratory Tests 02/23/17 13:08 02/23/17 17:49 02/23/17 21:15 02/24/17 00:15 02/24/17 04:56 02/24/17 09:57 02/24/17 16:25 02/24/17 21:58 02/25/17 05:39 Microbiology Microbiology Microbiology Date/Time Source Procedure Growth Status 02/23/17 07:07 Peripheral/Iv Start Blood Culture - Preliminary NO GROWTH AFTER 48 HOURS Resulted Assessment & Plan Problems: (1) Acute GI bleeding Status: Acute (2) Duodenal ulcer Status: Acute (3) Acute blood loss anemia Status: Acute (4) Tachycardia Status: Resolved (5) Hypotension Status: Acute Qualifiers: Hypotension type: other hypotension type Qualified Codes: I95.89 - Other hypotension Assessment & Plan: Secondary to blood loss (6) Diabetes mellitus Status: Chronic Qualifiers: Diabetes mellitus type: type 2 (7) NSAID long-term use Status: Chronic (8) Hypothyroidism Status: Chronic (9) GERD (gastroesophageal reflux disease) Status: Chronic (10) Depression Status: Chronic Assessment 02/25/2017 Impression Bleeding duodenal ulcer Acute blood loss anemia-status post 4+ units transfused. Hemoglobin was as low as 6.7 initially and improved to 10.1 after 3 units of blood. Patient given fourth unit of blood on 02/24/2017. Hypotension-borderline low blood pressure but without orthostatic hypotension Leukocytosis-resolved Mild thrombocytopenia-improved Type 2 diabetes mellitus-on metformin at home-monitor Accu-Cheks here and give sliding scale insulin if needed Anxiety/depression GERD Hypothyroidism with mildly elevated TSH of 9.39 Borderline low B 12 Hypophosphatemia Hypoalbuminemia Hypokalemia Plan Continue to monitor closely in CCU. Heart rate is improved today. She is not orthostatic. Continue monitoring hemoglobin every 6 hours for now The patient did tolerate clear liquids well and will continue those for now. Continue Protonix. DC IV fluids Continue oral Synthroid and antidepressant. Continue to monitor Accu-Cheks closely and give sliding scale insulin if needed. Start oral B 12 Replace potassium and phosphorus orally and recheck tomorrow Check pre-albumin regarding low albumin Increase activity as tolerated RONAL Philip Discussed with WESLEY Kurtz for Dr. Silverio Greater than 40 minutes of critical care time spent seeing and evaluating the patient today. DVT Prophylaxis: SCD'S Code Status Full Code Hospital Course Summary Disclaimer The hospital course summary below is not to be considered part of the above Progress Note. Hospital Course Summary Admit patient as a inpatient under the care of Dr Salgado for acute GI bleed Appreciate surgical consultation by Dr Silverio Move patient to ICU for further critical care given severity of illness. Ordered to give 2 units now of packed RBCs. Will repeat Hgb at that time. Have more units ready to give. Continue with IV normal saline. NG tube placed. Patient given Zofran 4 milligrams IV now for nausea Protonix 40 mg IV now and started on Protonix drop started PICC line placed for additional vascular access. Monitor telemetry and tachycardia. She is critically ill at this time. We discussed the need for multiple units of blood transfusions. Discuss further plan of care with attending Dr Salgado 35 min spent at bedside At time of discharge medical care will return to PCP Dr Somers 02/24/2017 Impression Bleeding duodenal ulcer Acute blood loss anemia-status post 3+ units transfused. Hemoglobin was as low as 6.7 initially and improved to 10.1 after 3 units of blood. Hemoglobin is now trending down over the past 12 hours and is now 7.5 Hypotension Leukocytosis Mild thrombocytopenia Type 2 diabetes mellitus-on metformin at home Anxiety/depression GERD Hypothyroidism with mildly elevated TSH of 9.39 Plan Continue to monitor closely in CCU. May need further transfusion for acute blood loss anemia. The patient is tachycardic with standing and has borderline hypotension. Continue nothing by mouth status, protonic drip, IV fluids Continue oral Synthroid and antidepressant. Continue to monitor Accu-Cheks closely and give sliding scale insulin if needed. Await iron and B-12 testing. Continue every 6 hours hemoglobin. Greater than 40 minutes of critical care time spent seeing and evaluating the patient today. ANGELA MERRITT MD Feb 25, 2017 09:49
[2017-02-25 10:14] LABS: HGB - HEMOGLOBIN 8.5 GM/DL (12-16)
[2017-02-25] MEDS: ACETAMINOPHEN 325 MG TABLET PO PRN (12:05)
[2017-02-25] MEDS: PAROXETINE 20 MG TABLET PO SCH (12:09)
--- NOTE | 2017-02-25 12:30 | NUR ---
Takes clear liquids well, denies abdominal pain. No dizzyness, orthostatic BPs, HGB stable.
[2017-02-25] MEDS: CYANOCOBALAMIN (B-12) 500mcg TABLET PO SCH (14:29)
[2017-02-25] MEDS: PHOSPHORUS 250 MG TABLET PO SCH ×3 (14:29→21:54)
[2017-02-25] MEDS: POTASSIUM CHLORIDE 10 MEQ TABLET PO SCH ×2 (14:32→18:25)
--- NOTE | 2017-02-25 14:35 | PNSURG ---
Subjective DATE: 02/25/17 TIME: 14:27 Interval History she is just finishing up her bath this afternoon. States she is tired, but denies pain, nausea, emesis. She had a small black stool last night. She received a unit of blood yesterday, HGB was 7.9 early this am and increased to 8.5 about 10 am today. Given the stable/increasing HGB, we can start full liquids this afternoon. Objective Vital Signs Date Time Temp Pulse Resp B/P Pulse Ox O2 Delivery O2 Flow Rate FiO2 02/25/17 13:00 99.1 84 24 99 Room Air 02/25/17 11:00 98/57 02/24/17 06:30 2.00 Height (Feet): 5 Height (Inches): 2.00 Weight (Kilograms): 65.700 BMI 26.9 General Appearance: Alert, Awake, Orientated x 3 Respiratory: FOUND: clear all noyola Cardiac: FOUND: regular rate, regular rhythm Abdominal Brief: FOUND: soft, tender (mild tenderness in epigastric area) Laboratory Trend Hemoglobin Test 02/22/17 19:30 02/23/17 04:23 02/23/17 09:12 02/23/17 13:08 Hemoglobin 7.7GM/DL (12-16) 6.7GM/DL (12-16) 10.1GM/DL (12-16) 8.6GM/DL (12-16) Test 02/23/17 17:49 02/23/17 21:15 02/24/17 00:15 02/24/17 04:56 Hemoglobin 10.1GM/DL (12-16) 9.0GM/DL (12-16) 8.3GM/DL (12-16) 7.5GM/DL (12-16) Test 02/24/17 09:57 02/24/17 16:25 02/24/17 21:58 02/25/17 05:39 Hemoglobin 7.3GM/DL (12-16) 8.7GM/DL (12-16) 7.9GM/DL (12-16) 7.9GM/DL (12-16) Test 02/25/17 09:57 Hemoglobin 8.5GM/DL (12-16) Laboratory Tests 02/22/17 19:29 02/23/17 04:23 02/24/17 04:56 02/25/17 05:39 Laboratory Tests 02/22/17 19:30 02/23/17 04:23 02/23/17 09:12 02/23/17 13:08 02/23/17 17:49 02/23/17 21:15 02/24/17 00:15 02/24/17 04:56 02/24/17 09:57 02/24/17 16:25 02/24/17 21:58 02/25/17 05:39 02/25/17 09:57 Procedure Procedure Date: Feb 23, 2017 Surgeon: Kavita Procedure EGD with deployment of clip in Epinephrin injection at ulcer site GS Assessment & Plan Problems: (1) Acute GI bleeding Status: Acute (2) Duodenal ulcer Status: Acute (3) Acute blood loss anemia Status: Acute Assessment HGB have stabilized. at 7.9 last night and early this am, then increased to 8.5 about 10 am today. Minimal epigastric tenderness. Will now be ok to proceed with full liquid diet. Repeat labs as ordered. Continue IV drip Protonix and Carafae. Appreciate medical management by the hospitalist team. Code Status Full Code Hospital Course Summary Disclaimer The visit summary below is not to be considered part of the above Progress Note. Hospital Course Summary Admit patient as a inpatient under the care of Dr Salgado for acute GI bleed Appreciate surgical consultation by Dr Silverio Move patient to ICU for further critical care given severity of illness. Ordered to give 2 units now of packed RBCs. Will repeat Hgb at that time. Have more units ready to give. Continue with IV normal saline. NG tube placed. Patient given Zofran 4 milligrams IV now for nausea Protonix 40 mg IV now and started on Protonix drop started PICC line placed for additional vascular access. Monitor telemetry and tachycardia. She is critically ill at this time. We discussed the need for multiple units of blood transfusions. Discuss further plan of care with attending Dr Salgado 35 min spent at bedside At time of discharge medical care will return to PCP Dr Somers 02/24/2017 Impression Bleeding duodenal ulcer Acute blood loss anemia-status post 3+ units transfused. Hemoglobin was as low as 6.7 initially and improved to 10.1 after 3 units of blood. Hemoglobin is now trending down over the past 12 hours and is now 7.5 Hypotension Leukocytosis Mild thrombocytopenia Type 2 diabetes mellitus-on metformin at home Anxiety/depression GERD Hypothyroidism with mildly elevated TSH of 9.39 Plan Continue to monitor closely in CCU. May need further transfusion for acute blood loss anemia. The patient is tachycardic with standing and has borderline hypotension. Continue nothing by mouth status, protonic drip, IV fluids Continue oral Synthroid and antidepressant. Continue to monitor Accu-Cheks closely and give sliding scale insulin if needed. Await iron and B-12 testing. Continue every 6 hours hemoglobin. Greater than 40 minutes of critical care time spent seeing and evaluating the patient today. ALFREDA GUERRA ENROLLMENT MANAGEMENT DIRECTOR Feb 25, 2017 14:30
[2017-02-25 16:42] LABS: HGB - HEMOGLOBIN 8.5 GM/DL (12-16)
--- NOTE | 2017-02-25 18:00 | NUR ---
Status In good spirits. To toilet frequently, has had 3 small maroon stools this afternoon. 1600 HGB is 8.5.
[2017-02-25] MEDS: LORAZEPAM 0.5 MG TABLET PO PRN (21:55)
[2017-02-25 22:42] LABS: HGB - HEMOGLOBIN 8.4 GM/DL (12-16)
[2017-02-26] VITALS (26 sets, daily range): BP systolic 106–155; BP diastolic 55–104; PULSE 72–120; RESP 13–32; TEMP 97.5–99.3; O2SAT 95–100
[2017-02-26] MEDS: PANTOPRAZOLE 80 MG in NORMAL SALINE 250 ML IV SCH ×3 (04:32)
[2017-02-26 04:58] LABS: BASOPHILS % (AUTO) 0.4 % (0-2); EOSINOPHILS # (AUTO) 0.3 T/MM3 (0-0.5); EOSINOPHILS % (AUTO) 2.9 % (0-4); HCT - HEMATOCRIT 26.5 % (36-46); HGB - HEMOGLOBIN 9.1 GM/DL (12-16); IMMATURE GRANULOCYTE # (AUTO) 0.04 T/MM3 (0.00-0.03); IMMATURE GRANULOCYTE % (AUTO) 0.4 % (0.0-0.5); LYMPHOCYTES # (AUTO) 2.4 T/MM3 (1-4.8); LYMPHOCYTES % (AUTO) 24.5 % (23-45); MEAN CORPUSCULAR HGB 30.1 UUG (26-34); MEAN CORPUSCULAR HGB CONC(MCHC 34.3 GM/DL (31-37); MEAN CORPUSCULAR VOLUME 87.7 UM3 (80-100); MEAN PLATELET VOLUME 10.5 UM3 (9.4-12.4); MONOCYTES # (AUTO) 0.5 T/MM3 (0-0.8); MONOCYTES % (AUTO) 5.1 % (0-9.0); NEUTROPHILS #(AUTO)-ABSOLUTE 6.6 T/MM3 (1.8-7.7); NEUTROPHILS % (AUTO) 66.7 % (33-66); RED BLOOD COUNT 3.02 M/MM3 (4.00-5.20); WBC - WHITE BLOOD COUNT 9.9 T/MM3 (4.5-11.0)
[2017-02-26 05:10] LABS: ALBUMIN 2.8 G/DL (3.5-5.0); ANION GAP 11 MEQ/L (5-15); BUN/CREATININE RATIO 10 RATIO (6-26); CALCIUM 8.2 MG/DL (8.4-10.2); CHLORIDE 108 MEQ/L (98-107); CO2 - CARBON DIOXIDE 27 MEQ/L (22-30); CREATININE 0.7 MG/DL (0.7-1.2); GLOMERULAR FILTRATION RATE 87; GLUCOSE 104 MG/DL (65-110); MAGNESIUM 1.9 MG/DL (1.6-2.3); SODIUM 146 MEQ/L (134-144)
--- NOTE | 2017-02-26 05:13 | NUR ---
Shift Summary Pt slept off and on during the night. Requested Lorazepam prior to bedtime. Administered. Denies pain and other discomforts. Up to the restroom several times. At the start of the shift, pt experiencing some bloody stools. However as the shift progressed, it has improved. No blood to note on the most recent elimination. VSS. Tachycardic at times to the 110's. Pt remains on RA. A&Ox3 and appropriate. Pleasant and cooperative.
--- NOTE | 2017-02-26 06:20 | NUR ---
Labs Potassium 3.0 reported to physician, Dr. Mcdaniel. No new orders. Pt currently on oral regimen of Kdur and KPhos.
[2017-02-26] MEDS: LEVOTHYROXINE 25 MCG TABLET PO SCH (06:23)
[2017-02-26] MEDS: SUCRALFATE 1 G TABLET PO SCH ×4 (06:24→20:58)
[2017-02-26] MEDS: CYANOCOBALAMIN (B-12) 500mcg TABLET PO SCH (09:00)
--- NOTE | 2017-02-26 09:37 | PNPDOC ---
Subjective Date DATE: 02/26/17 TIME: 09:29 Subjective The patient states she's feeling better today. She tolerated full liquids which were started yesterday afternoon. She denies any abdominal pain or chest pain. She does have some mild dental pain in the right lower jaw. She denies any shortness of breath or lightheadedness. She is urinating okay after removal of Philip yesterday but has had some incontinence. She has had 3 or 4 black/ maroonish stools yesterday and overnight. She was mildly tachycardic last night but this did resolve. She was given Ativan last night to help her sleep. Objective Vital Signs Vital signs Vital Signs Date Time Temp Pulse Resp B/P Pulse Ox O2 Delivery O2 Flow Rate FiO2 02/26/17 08:00 99.3 87 14 132/78 97 02/26/17 04:00 Room Air 02/24/17 06:30 2.00 GEN-alert, oriented, no acute distress CV-regular rate and rhythm CHEST-clear to auscultation bilaterally ABD-soft, nontender, nondistended with positive bowel sounds -no Philip EXT-nonpitting edema in the upper extremities has improved NEURO-no focal deficits, patient does keep her right eye closed frequently and has disconjugate gaze which is chronic SKIN-warm and dry without rashes Telemetry Rhythm: Sinus Rhythm Height (Feet): 5 Height (Inches): 2.00 Weight (Kilograms): 66.100 Laboratory Laboratory Laboratory Tests 02/25/17 05:39 02/26/17 04:41 Laboratory Tests 02/24/17 09:57 02/24/17 16:25 02/24/17 21:58 02/25/17 05:39 02/25/17 09:57 02/25/17 16:09 02/25/17 22:33 02/26/17 04:41 Calcium 8.2, phosphorus 3.0, albumin 2.8, magnesium 1.9 Assessment & Plan Problems: (1) Acute GI bleeding Status: Acute (2) Duodenal ulcer Status: Acute (3) Acute blood loss anemia Status: Acute (4) Tachycardia Status: Resolved (5) Hypotension Status: Acute Qualifiers: Hypotension type: other hypotension type Qualified Codes: I95.89 - Other hypotension Assessment & Plan: Secondary to blood loss (6) Diabetes mellitus Status: Chronic Qualifiers: Diabetes mellitus type: type 2 (7) NSAID long-term use Status: Chronic (8) Hypothyroidism Status: Chronic (9) GERD (gastroesophageal reflux disease) Status: Chronic (10) Depression Status: Chronic Assessment 02/26/2017 Impression Bleeding duodenal ulcer Acute blood loss anemia-status post- 4+ units transfused. Hemoglobin was as low as 6.7 and is now up to 9.1. Hypotension-resolved Leukocytosis-resolved Mild thrombocytopenia-resolved Type 2 diabetes mellitus-on metformin at home-monitor Accu-Cheks here and give sliding scale insulin if needed Anxiety/depression GERD Hypothyroidism with mildly elevated TSH of 9.39 Borderline low B 12 Hypophosphatemia-resolved Hypoalbuminemia Hypokalemia Malnutrition with albumin of 12.8 Plan Continue to monitor closely in CCU. The patient was tachycardic last night without hypotension. She has had some maroon-colored stools after initiation of full liquid diet. Continue to monitor in CCU for now. We'll make sure 2 units of blood are on hold. Continue Protonix. Consider change to oral if okay with Dr. Silverio. Continue oral Synthroid and antidepressant. Continue to monitor Accu-Cheks closely and give sliding scale insulin if needed. Replace potassium and recheck tomorrow Re: Malnutrition with low prealbumin, recommend supplements with extra protein Increase activity as tolerated Discussed with WESLEY Kurtz for Dr. Silverio DVT Prophylaxis: SCD'S Code Status Full Code Hospital Course Summary Disclaimer The hospital course summary below is not to be considered part of the above Progress Note. Hospital Course Summary Admit patient as a inpatient under the care of Dr Salgado for acute GI bleed Appreciate surgical consultation by Dr Silverio Move patient to ICU for further critical care given severity of illness. Ordered to give 2 units now of packed RBCs. Will repeat Hgb at that time. Have more units ready to give. Continue with IV normal saline. NG tube placed. Patient given Zofran 4 milligrams IV now for nausea Protonix 40 mg IV now and started on Protonix drop started PICC line placed for additional vascular access. Monitor telemetry and tachycardia. She is critically ill at this time. We discussed the need for multiple units of blood transfusions. Discuss further plan of care with attending Dr Salgado 35 min spent at bedside At time of discharge medical care will return to PCP Dr Somers 02/24/2017 Impression Bleeding duodenal ulcer Acute blood loss anemia-status post 3+ units transfused. Hemoglobin was as low as 6.7 initially and improved to 10.1 after 3 units of blood. Hemoglobin is now trending down over the past 12 hours and is now 7.5 Hypotension Leukocytosis Mild thrombocytopenia Type 2 diabetes mellitus-on metformin at home Anxiety/depression GERD Hypothyroidism with mildly elevated TSH of 9.39 Plan Continue to monitor closely in CCU. May need further transfusion for acute blood loss anemia. The patient is tachycardic with standing and has borderline hypotension. Continue nothing by mouth status, protonic drip, IV fluids Continue oral Synthroid and antidepressant. Continue to monitor Accu-Cheks closely and give sliding scale insulin if needed. Await iron and B-12 testing. Continue every 6 hours hemoglobin. Greater than 40 minutes of critical care time spent seeing and evaluating the patient today. 02/25/2017 Impression Bleeding duodenal ulcer Acute blood loss anemia-status post 4+ units transfused. Hemoglobin was as low as 6.7 initially and improved to 10.1 after 3 units of blood. Patient given fourth unit of blood on 02/24/2017. Hypotension-borderline low blood pressure but without orthostatic hypotension Leukocytosis-resolved Mild thrombocytopenia-improved Type 2 diabetes mellitus-on metformin at home-monitor Accu-Cheks here and give sliding scale insulin if needed Anxiety/depression GERD Hypothyroidism with mildly elevated TSH of 9.39 Borderline low B 12 Hypophosphatemia Hypoalbuminemia Hypokalemia Plan Continue to monitor closely in CCU. Heart rate is improved today. She is not orthostatic. Continue monitoring hemoglobin every 6 hours for now The patient did tolerate clear liquids well and will continue those for now. Continue Protonix. DC IV fluids Continue oral Synthroid and antidepressant. Continue to monitor Accu-Cheks closely and give sliding scale insulin if needed. Start oral B 12 Replace potassium and phosphorus orally and recheck tomorrow Check pre-albumin regarding low albumin Increase activity as tolerated RONAL Philip Discussed with WESLEY Kurtz for Dr. Silverio Greater than 40 minutes of critical care time spent seeing and evaluating the patient today. ANGELA MERRITT MD Feb 26, 2017 09:32
--- NOTE | 2017-02-26 10:00 | NUR ---
Status To bathroom frequently, denies discomfort, dizzyness. Takes full liquids well. VSS
[2017-02-26] MEDS: PAROXETINE 20 MG TABLET PO SCH (10:06)
[2017-02-26] MEDS: ACETAMINOPHEN 325 MG TABLET PO PRN (10:06)
--- NOTE | 2017-02-26 10:19 | NUR ---
CM CM IN TO VISIT WITH PT. PT PLANS TO DC HOME WITH DAD AND DENIES HOME NEEDS. PT IS AWARE TO CALL CM SHOULD NEEDS ARISE.
[2017-02-26] MEDS: POTASSIUM CHLORIDE 20 MEQ TABLET PO SCH ×2 (12:56→19:27)
[2017-02-26] MEDS: PHOSPHORUS 250 MG TABLET PO SCH ×3 (12:57→20:58)
[2017-02-26 15:07] LABS: HGB - HEMOGLOBIN 8.6 GM/DL (12-16)
--- NOTE | 2017-02-26 18:17 | PNF ---
DATE OF SERVICE 02/26/2017 FINDINGS Gutierres today was sitting upright in her chair and eating lunch when seen earlier today. She states that she feels significantly better. States she did have a couple of maroon stools yesterday although these were darker in nature than stools that she had been experiencing at the time of admission. The patient did not say denies any element of abdominal pain. EXAM VITAL SIGNS: Afebrile, normotensive. Current vitals include temperature 99.3, pulse 87, respirations 14, blood pressure 132/78. SAO2 97% on room air. HEENT: Normocephalic. Pupils are equally round and react to light and accommodation. CHEST: Clear to auscultation bilaterally. HEART: Regular rate and rhythm. Normal S1 and S2 without gallops, murmurs or clicks. ABDOMEN: Palpation of the abdomen reveals it to be soft and nontender. LABORATORY/RADIOGRAPHIC EVALUATION The patient has had serial hemoglobins and overall her hemoglobin is stable to actually improved today at 9.1. BMP, phosphorus and magnesium levels were obtained today and found to be essentially within normal limits with the exception her potassium was low at 3.0. Sodium was slightly elevated at 146. ASSESSMENT 56-year-old female with history for bleeding duodenal ulcer. Patient clinically stable at this time. PLAN I do believe the patient could be transferred to the floor. Would increase diet to a soft diet. Will continue to follow along in the patient's care. I do believe IV Protonix drip could be discontinued and the patient could be placed on intermittent IV injections of Protonix. MTDD
--- NOTE | 2017-02-26 19:45 | NUR ---
Transferred to Medical wong per ambulation, denies pain, problems. Report given to Jaz KELVIN.
--- NOTE | 2017-02-26 19:45 | NUR ---
PT TRANSFERRED FROM CCU TO ROOM 135. ARRIVED VIA WALKING, PUSHING WC. ALERT, ORIENTED. DENIES PAIN. NO CONCERNS VOICED.
[2017-02-26] MEDS: PANTOPRAZOLE 40mg INJECTION IV SCH (20:54)
[2017-02-26] MEDS: MELATONIN 5 MG TABLET PO SCH (22:54)
[2017-02-27] VITALS (11 sets, daily range): BP systolic 111–153; BP diastolic 65–98; PULSE 66–85; RESP 16–18; TEMP 97–97.7; O2SAT 95–100
--- NOTE | 2017-02-27 03:57 | NUR ---
SUMMARY PT IS ALERT AND ORIENTED. DENIES PAIN, DENIES DIZZINESS. STAND BY ASSIST IN ROOM. VSS. NO CONCERNS VOICED.
[2017-02-27] MEDS: ACETAMINOPHEN 325 MG TABLET PO PRN ×2 (05:00→18:20)
[2017-02-27 05:15] LABS: BASOPHILS % (AUTO) 0.4 % (0-2); EOSINOPHILS # (AUTO) 0.4 T/MM3 (0-0.5); EOSINOPHILS % (AUTO) 4.9 % (0-4); HCT - HEMATOCRIT 24.6 % (36-46); HGB - HEMOGLOBIN 8.2 GM/DL (12-16); IMMATURE GRANULOCYTE # (AUTO) 0.02 T/MM3 (0.00-0.03); IMMATURE GRANULOCYTE % (AUTO) 0.3 % (0.0-0.5); LYMPHOCYTES # (AUTO) 2.7 T/MM3 (1-4.8); LYMPHOCYTES % (AUTO) 36.4 % (23-45); MEAN CORPUSCULAR HGB 29.7 UUG (26-34); MEAN CORPUSCULAR HGB CONC(MCHC 33.3 GM/DL (31-37); MEAN CORPUSCULAR VOLUME 89.1 UM3 (80-100); MEAN PLATELET VOLUME 10.3 UM3 (9.4-12.4); MONOCYTES # (AUTO) 0.5 T/MM3 (0-0.8); NEUTROPHILS #(AUTO)-ABSOLUTE 3.7 T/MM3 (1.8-7.7); RED BLOOD COUNT 2.76 M/MM3 (4.00-5.20); WBC - WHITE BLOOD COUNT 7.3 T/MM3 (4.5-11.0)
[2017-02-27] MEDS: SUCRALFATE 1 G TABLET PO SCH ×4 (06:00→22:23)
[2017-02-27] MEDS: LEVOTHYROXINE 25 MCG TABLET PO SCH (06:00)
[2017-02-27 07:24] LABS: ALBUMIN 2.4 G/DL (3.5-5.0); ANION GAP 10 MEQ/L (5-15); BUN/CREATININE RATIO 12 RATIO (6-26); CALCIUM 8.1 MG/DL (8.4-10.2); CHLORIDE 110 MEQ/L (98-107); CO2 - CARBON DIOXIDE 26 MEQ/L (22-30); CREATININE 0.6 MG/DL (0.7-1.2); GLOMERULAR FILTRATION RATE 104; GLUCOSE 95 MG/DL (65-110); POTASSIUM 3.5 MEQ/L (3.6-5); SODIUM 146 MEQ/L (134-144)
[2017-02-27] MEDS ORDERED: HYDROCODONE/APAP 5 mg/325 mg TABLET PO PRN (08:30)
[2017-02-27] MEDS: CYANOCOBALAMIN (B-12) 500mcg TABLET PO SCH (09:11)
[2017-02-27] MEDS: PAROXETINE 20 MG TABLET PO SCH (09:11)
[2017-02-27] MEDS: PANTOPRAZOLE 40mg INJECTION IV SCH ×2 (09:12→22:23)
--- NOTE | 2017-02-27 10:38 | PNPDOC ---
Subjective Date DATE: 02/27/17 TIME: 10:29 Subjective Patient complains of a headache that is now better and some dental pain in the lower right jaw. Otherwise, she is feeling well. She is tolerating full liquids without difficulties. She denies any nausea, vomiting or abdominal pain. Her last bowel movement yet was yesterday afternoon and was small dark and bloody. She denies any lightheadedness or shortness of breath. She denies any chest pains. She was able to take a shower and did not have any lightheadedness. She has not been walking in the halls. She has had some incontinence of urine but that is improving. Objective Vital Signs Vital signs Vital Signs Date Time Temp Pulse Resp B/P Pulse Ox O2 Delivery O2 Flow Rate FiO2 02/27/17 07:56 66 150/87 02/27/17 07:53 97.7 16 98 Room Air 02/24/17 06:30 2.00 GEN-alert, oriented, no acute distress HEENT-sclera anicteric, disconjugate gaze, frequently closes right eye, oropharynx is moist, she has a bridge in the area where she complains of dental pain. There is no erythema or swelling of the gums to indicate abscess or infection NECK-supple CV-regular rate and rhythm with a 2/6 systolic murmur CHEST-clear to auscultation bilaterally ABD-soft, nontender, nondistended with positive bowel sounds -no Philip EXT-no edema NEURO-no focal deficits other than disconjugate gaze and frequently closing of the right eye which the patient states is chronic SKIN-warm and dry and without rashes Telemetry Rhythm: Sinus Rhythm Height (Feet): 5 Height (Inches): 2.00 Weight (Kilograms): 65.500 Laboratory Laboratory Laboratory Tests 02/26/17 04:41 02/27/17 04:31 Laboratory Tests 02/25/17 16:09 02/25/17 22:33 02/26/17 04:41 02/26/17 14:56 02/27/17 04:31 Assessment & Plan Problems: (1) Acute GI bleeding Status: Acute (2) Duodenal ulcer Status: Acute (3) Acute blood loss anemia Status: Acute (4) Tachycardia Status: Resolved (5) Hypotension Status: Acute Qualifiers: Hypotension type: other hypotension type Qualified Codes: I95.89 - Other hypotension Assessment & Plan: Secondary to blood loss (6) Diabetes mellitus Status: Chronic Qualifiers: Diabetes mellitus type: type 2 (7) NSAID long-term use Status: Chronic (8) Hypothyroidism Status: Chronic (9) GERD (gastroesophageal reflux disease) Status: Chronic (10) Depression Status: Chronic Assessment 02/27/2017 Impression Bleeding duodenal ulcer-EGD 02/23/2017 Acute blood loss anemia-status post- 4+ units transfused. Hemoglobin trending down from a high of 9.1 recently down to 8.2 today. Vital signs are stable without low blood pressure or tachycardia. Small apparently old blood in stool yesterday. Hypotension-resolved Leukocytosis-resolved Mild thrombocytopenia-resolved Type 2 diabetes mellitus-on metformin at home-monitor Accu-Cheks here and give sliding scale insulin if needed Anxiety/depression GERD Hypothyroidism with mildly elevated TSH of 9.39 Borderline low B 12 Hypophosphatemia-resolved Hypoalbuminemia Hypokalemia Malnutrition with albumin of 12.8 Plan Patient was transferred out of CCU yesterday. Changed to twice daily IV protonic chest yesterday and protonic strip discontinued. Consider advancing diet, will discuss with Dr. Silverio. With hemoglobin slowly trending down I would recommend that she stay in the hospital again tonight and recheck lab tomorrow. Continue oral Synthroid and antidepressant. Continue to monitor Accu-Cheks closely and give sliding scale insulin if needed. Replace potassium and recheck tomorrow Increase activity as tolerated Code Status Full Code Hospital Course Summary Disclaimer The hospital course summary below is not to be considered part of the above Progress Note. Hospital Course Summary Admit patient as a inpatient under the care of Dr Salgado for acute GI bleed Appreciate surgical consultation by Dr Silverio Move patient to ICU for further critical care given severity of illness. Ordered to give 2 units now of packed RBCs. Will repeat Hgb at that time. Have more units ready to give. Continue with IV normal saline. NG tube placed. Patient given Zofran 4 milligrams IV now for nausea Protonix 40 mg IV now and started on Protonix drop started PICC line placed for additional vascular access. Monitor telemetry and tachycardia. She is critically ill at this time. We discussed the need for multiple units of blood transfusions. Discuss further plan of care with attending Dr Salgado 35 min spent at bedside At time of discharge medical care will return to PCP Dr Somers 02/24/2017 Impression Bleeding duodenal ulcer Acute blood loss anemia-status post 3+ units transfused. Hemoglobin was as low as 6.7 initially and improved to 10.1 after 3 units of blood. Hemoglobin is now trending down over the past 12 hours and is now 7.5 Hypotension Leukocytosis Mild thrombocytopenia Type 2 diabetes mellitus-on metformin at home Anxiety/depression GERD Hypothyroidism with mildly elevated TSH of 9.39 Plan Continue to monitor closely in CCU. May need further transfusion for acute blood loss anemia. The patient is tachycardic with standing and has borderline hypotension. Continue nothing by mouth status, protonic drip, IV fluids Continue oral Synthroid and antidepressant. Continue to monitor Accu-Cheks closely and give sliding scale insulin if needed. Await iron and B-12 testing. Continue every 6 hours hemoglobin. Greater than 40 minutes of critical care time spent seeing and evaluating the patient today. 02/25/2017 Impression Bleeding duodenal ulcer Acute blood loss anemia-status post 4+ units transfused. Hemoglobin was as low as 6.7 initially and improved to 10.1 after 3 units of blood. Patient given fourth unit of blood on 02/24/2017. Hypotension-borderline low blood pressure but without orthostatic hypotension Leukocytosis-resolved Mild thrombocytopenia-improved Type 2 diabetes mellitus-on metformin at home-monitor Accu-Cheks here and give sliding scale insulin if needed Anxiety/depression GERD Hypothyroidism with mildly elevated TSH of 9.39 Borderline low B 12 Hypophosphatemia Hypoalbuminemia Hypokalemia Plan Continue to monitor closely in CCU. Heart rate is improved today. She is not orthostatic. Continue monitoring hemoglobin every 6 hours for now The patient did tolerate clear liquids well and will continue those for now. Continue Protonix. DC IV fluids Continue oral Synthroid and antidepressant. Continue to monitor Accu-Cheks closely and give sliding scale insulin if needed. Start oral B 12 Replace potassium and phosphorus orally and recheck tomorrow Check pre-albumin regarding low albumin Increase activity as tolerated RONAL Philip Discussed with WESLEY Kurtz for Dr. Silverio Greater than 40 minutes of critical care time spent seeing and evaluating the patient today. 02/26/2017 Impression Bleeding duodenal ulcer Acute blood loss anemia-status post- 4+ units transfused. Hemoglobin was as low as 6.7 and is now up to 9.1. Hypotension-resolved Leukocytosis-resolved Mild thrombocytopenia-resolved Type 2 diabetes mellitus-on metformin at home-monitor Accu-Cheks here and give sliding scale insulin if needed Anxiety/depression GERD Hypothyroidism with mildly elevated TSH of 9.39 Borderline low B 12 Hypophosphatemia-resolved Hypoalbuminemia Hypokalemia Malnutrition with albumin of 12.8 Plan Continue to monitor closely in CCU. The patient was tachycardic last night without hypotension. She has had some maroon-colored stools after initiation of full liquid diet. Continue to monitor in CCU for now. We'll make sure 2 units of blood are on hold. Continue Protonix. Consider change to oral if okay with Dr. Silverio. Continue oral Synthroid and antidepressant. Continue to monitor Accu-Cheks closely and give sliding scale insulin if needed. Replace potassium and recheck tomorrow Re: Malnutrition with low prealbumin, recommend supplements with extra protein Increase activity as tolerated Discussed with WESLEY Kurtz for ANGELA Bravo MD Feb 27, 2017 10:32
[2017-02-27] MEDS ORDERED: POTASSIUM CHLORIDE 20 MEQ TABLET PO ONE (12:30)
--- NOTE | 2017-02-27 16:02 | PNF ---
DATE 02/27/2017 FINDINGS Mrs. Gutierres states she is feels "good." She has had no further bloody stools. Denies abdominal pain. OBJECTIVE VITALS: Afebrile. Normotensive. Current vitals include temperature 97.7, pulse 82, respirations 60, blood pressure 124/76, SAO2 95% on room air. HEENT: Normocephalic. Pupils are equally round and react to light and accommodation. CHEST: Clear to auscultation bilaterally. HEART: Regular rate and rhythm. Normal S1, S2, without gallops, murmurs or clicks. ABDOMEN: Palpation of the abdomen reveals it to be soft and nontender. I do not appreciate any evidence for hepatosplenomegaly nor abnormal masses. LABORATORY/RADIOGRAPHIC EVALUATION Overall, the patient's hemoglobin remained stable and has drifted down slightly to 8.2 today. BMP obtained and found to be essentially within normal limits. ASSESSMENT 56-year-old female with history for bleeding duodenal ulcer. Patient currently stable. PLAN I agree with current management of this patient. She has been increased to a soft diet. Would recheck CBC tomorrow. If the patient's hemoglobin remains stable, she may be able to be discharged within next 24-48 hours. Would recommend continuing with Carafate over the next 4-6 weeks as well as an additional two months' worth of treatment utilizing a PPI. IBRAHIMA
--- NOTE | 2017-02-27 16:37 | NUR ---
CM CM IN TO VISIT WITH PT. PT CONTINUES TO DENY HOME NEEDS AND REPORTS THAT HER DAD WILL HELP HER AND THAT HE GETS HER MEDICATIONS FOR HER. PT IS AWARE TO CONTACT CM SHOULD NEEDS ARISE.
--- NOTE | 2017-02-27 18:45 | NUR ---
status Pt A/O x3, V/S stable on RA. Pt stating has only had headache and PRN tylenol helping given 2xs. Pt ambulating well in room, gotten walker for pt and making it easier for her stability. Pt eating and drinking well, no N/V. Urine output good for shift, no BM or bloody stools. Pt denies any ABD pain or tenderness.
[2017-02-27] MEDS: MELATONIN 5 MG TABLET PO SCH (22:23)
[2017-02-28] VITALS (9 sets, daily range): BP systolic 107–162; BP diastolic 67–90; PULSE 63–92; RESP 16–18; TEMP 96.6–97.8; O2SAT 95–100
--- NOTE | 2017-02-28 05:11 | NUR ---
SHIFT ASSESSMENT: PT IS A&OX3, FRIENDLY AND COOPERATIVE, ON ROOM AIR, DENIES CHEST PAIN OR N/V, IS UP AT PILAR WITH A WALKER, PT REFUSES SCD'S, VITALS ARE Q4 AND STABLE, ORTHOSTATIC VITALS, SOFT DIET, BGM'S ARE AC/HS, CALL LIGHT WITHIN REACH, BED ALARM ON.
[2017-02-28 05:41] LABS: BASOPHILS % (AUTO) 0.5 % (0-2); EOSINOPHILS # (AUTO) 0.4 T/MM3 (0-0.5); EOSINOPHILS % (AUTO) 6.4 % (0-4); HCT - HEMATOCRIT 24.3 % (36-46); HGB - HEMOGLOBIN 8.1 GM/DL (12-16); IMMATURE GRANULOCYTE # (AUTO) 0.02 T/MM3 (0.00-0.03); IMMATURE GRANULOCYTE % (AUTO) 0.3 % (0.0-0.5); LYMPHOCYTES # (AUTO) 2.8 T/MM3 (1-4.8); MEAN CORPUSCULAR HGB 30.1 UUG (26-34); MEAN CORPUSCULAR HGB CONC(MCHC 33.3 GM/DL (31-37); MEAN CORPUSCULAR VOLUME 90.3 UM3 (80-100); MONOCYTES # (AUTO) 0.4 T/MM3 (0-0.8); MONOCYTES % (AUTO) 6.1 % (0-9.0); NEUTROPHILS #(AUTO)-ABSOLUTE 2.8 T/MM3 (1.8-7.7); NEUTROPHILS % (AUTO) 43.7 % (33-66); RED BLOOD COUNT 2.69 M/MM3 (4.00-5.20); WBC - WHITE BLOOD COUNT 6.4 T/MM3 (4.5-11.0)
[2017-02-28] MEDS: SUCRALFATE 1 G TABLET PO SCH ×2 (05:48→11:10)
[2017-02-28] MEDS: LEVOTHYROXINE 25 MCG TABLET PO SCH (05:48)
[2017-02-28 05:51] LABS: ALBUMIN 2.7 G/DL (3.5-5.0); ANION GAP 8 MEQ/L (5-15); BUN/CREATININE RATIO 19 RATIO (6-26); CALCIUM 8.5 MG/DL (8.4-10.2); CHLORIDE 109 MEQ/L (98-107); CO2 - CARBON DIOXIDE 27 MEQ/L (22-30); CREATININE 0.7 MG/DL (0.7-1.2); GLOMERULAR FILTRATION RATE 87; GLUCOSE 103 MG/DL (65-110); PHOSPHORUS 4.3 MG/DL (2.5-4.5); SODIUM 144 MEQ/L (134-144)
[2017-02-28] MEDS: CYANOCOBALAMIN (B-12) 500mcg TABLET PO SCH (09:23)
[2017-02-28] MEDS: PAROXETINE 20 MG TABLET PO SCH (09:23)
[2017-02-28] MEDS: PANTOPRAZOLE 40mg INJECTION IV SCH (09:25)
[2017-02-28] MEDS: ACETAMINOPHEN 325 MG TABLET PO PRN (11:10)
--- NOTE | 2017-02-28 13:58 | PNPDOC ---
Subjective Date DATE: 02/28/17 TIME: 13:49 Subjective F/U: Acute GI bleed, duodenal ulcer, Anemia secondary to acute GI blood loss. Doing well today. Eating without problems. No nausea or ab pain. Bowels stable. Not feeling unsteady when up. Breathing well. No chest pain. No f/c. Objective Vital Signs Vital signs Vital Signs Date Time Temp Pulse Resp B/P Pulse Ox O2 Delivery O2 Flow Rate FiO2 02/28/17 11:15 96.9 70 18 134/82 99 Room Air 02/24/17 06:30 2.00 Telemetry Rhythm: Sinus Rhythm Height (Feet): 5 Height (Inches): 2.00 Weight (Kilograms): 64.200 General General Appearance: Alert, Orientated x 3, Well Nourished, Well Developed, Cooperative, No Acute Distress, Looks Stated Age Eyes (Brief) Eyes: FOUND: EOMI, PERRL, NOT FOUND: scleral icterus ENMT (Brief) ENMT: FOUND: hearing intact, mucosa moist Neck (Brief) Neck: FOUND: midline, NOT FOUND: nuchal rigidity, spasm Respiratory (Brief) Respiratory: FOUND: clear all noyola, equal bilaterally, NOT FOUND: rales, wheezes Cardiovascular (Brief) Cardiac: FOUND: regular rate, regular rhythm, NOT FOUND: pedal edema Abdomen (Brief) Abdominal: FOUND: BS normo active x4, soft, NOT FOUND: distended, tender Extremities (Brief) Extremity : Side: Bilateral Extremity: leg Extremity Finding: NOT FOUND: edema Musculoskeletal (Brief) Musculoskeletal: FOUND: extremities move equally, NOT FOUND: deformity, spasm Integumentary (Brief) Integumentary: FOUND: dry, warm Neurologic (Brief) Neurological: FOUND: cranial 2-12 intact, motor (intact ) Psychiatric (Brief) Psychiatric: FOUND: alert, attentive, normal affect, oriented Laboratory Laboratory Laboratory Tests 02/27/17 04:31 02/28/17 05:29 Laboratory Tests 02/26/17 14:56 02/27/17 04:31 02/28/17 05:29 Assessment & Plan Problems: (1) Acute GI bleeding Status: Resolved (2) Duodenal ulcer Status: Acute (3) Acute blood loss anemia Status: Acute (4) Tachycardia Status: Resolved (5) Hypotension Status: Resolved Qualifiers: Hypotension type: other hypotension type Qualified Codes: I95.89 - Other hypotension Assessment & Plan: Secondary to blood loss (6) Diabetes mellitus Status: Chronic Qualifiers: Diabetes mellitus type: type 2 (7) NSAID long-term use Status: Chronic (8) Hypothyroidism Status: Chronic (9) GERD (gastroesophageal reflux disease) Status: Chronic (10) Depression Status: Chronic Plan/Intensity of Service Will d/c to home. Continue PPI (Omeprazole) 40mg BID and carafate 1 gram ac meals and HS. No NSAIDS - Tylenol and [place] as needed. Hold Metformin - sugars stable. Monitor blood sugars. Continue home dose of thyroid medication. F/U with Dr Somers in 1 week - check CBC due to anemia and TSH due to hypothyroidism. See orders for details. DVT Prophylaxis: SCD'S Code Status Full Code Hospital Course Summary Disclaimer The hospital course summary below is not to be considered part of the above Progress Note. Hospital Course Summary 02/23 Admit patient as a inpatient under the care of Dr Salgado for acute GI bleed Appreciate surgical consultation by Dr Silverio Move patient to ICU for further critical care given severity of illness. Ordered to give 2 units now of packed RBCs. Will repeat Hgb at that time. Have more units ready to give. Continue with IV normal saline. NG tube placed. Patient given Zofran 4 milligrams IV now for nausea Protonix 40 mg IV now and started on Protonix drop started PICC line placed for additional vascular access. Monitor telemetry and tachycardia. She is critically ill at this time. We discussed the need for multiple units of blood transfusions. Discuss further plan of care with attending Dr Salgado 35 min spent at bedside At time of discharge medical care will return to PCP Dr Somers 02/24/2017 Continue to monitor closely in CCU. May need further transfusion for acute blood loss anemia. The patient is tachycardic with standing and has borderline hypotension. Continue nothing by mouth status, protonic drip, IV fluids Continue oral Synthroid and antidepressant. Continue to monitor Accu-Cheks closely and give sliding scale insulin if needed. Await iron and B-12 testing. Continue every 6 hours hemoglobin. Greater than 40 minutes of critical care time spent seeing and evaluating the patient today. 02/25/2017 Continue to monitor closely in CCU. Heart rate is improved today. She is not orthostatic. Continue monitoring hemoglobin every 6 hours for now The patient did tolerate clear liquids well and will continue those for now. Continue Protonix. DC IV fluids Continue oral Synthroid and antidepressant. Continue to monitor Accu-Cheks closely and give sliding scale insulin if needed. Start oral B 12 Replace potassium and phosphorus orally and recheck tomorrow Check pre-albumin regarding low albumin Increase activity as tolerated DC Tamera Discussed with WESLEY Kurtz for Dr. Silverio Greater than 40 minutes of critical care time spent seeing and evaluating the patient today. 02/26/2017 Continue to monitor closely in CCU. The patient was tachycardic last night without hypotension. She has had some maroon-colored stools after initiation of full liquid diet. Continue to monitor in CCU for now. We'll make sure 2 units of blood are on hold. Continue Protonix. Consider change to oral if okay with Dr. Silverio. Continue oral Synthroid and antidepressant. Continue to monitor Accu-Cheks closely and give sliding scale insulin if needed. Replace potassium and recheck tomorrow Re: Malnutrition with low prealbumin, recommend supplements with extra protein Increase activity as tolerated Discussed with WESLEY Kurtz for Dr. Silverio 02/27 Patient was transferred out of CCU yesterday. Changed to twice daily IV protonic chest yesterday and protonic strip discontinued. Consider advancing diet, will discuss with Dr. Silverio. With hemoglobin slowly trending down I would recommend that she stay in the hospital again tonight and recheck lab tomorrow. Continue oral Synthroid and antidepressant. Continue to monitor Accu-Cheks closely and give sliding scale insulin if needed. Replace potassium and recheck tomorrow Increase activity as tolerated 02/28 Doing well today. Eating without problems. No nausea or ab pain. Bowels stable. Not feeling unsteady when up. Breathing well. No chest pain. No f/c. Will d/c to home. Continue PPI (Omeprazole) 40mg BID and carafate 1 gram ac meals and HS. No NSAIDS - Tylenol and [place] as needed. Hold Metformin - sugars stable. Monitor blood sugars. Continue home dose of thyroid medication. F/U with Dr Somers in 1 week - check CBC due to anemia and TSH due to hypothyroidism. See orders for details. BRANDI SALGADO MD Feb 28, 2017 13:53
[2017-02-28] MEDS ORDERED: ACET-2321 PO (14:00)
[2017-02-28] MEDS ORDERED: CYAN500T2 PO (14:00)
[2017-02-28] MEDS ORDERED: HYDR-4246 PO (14:00)
[2017-02-28] MEDS ORDERED: OMEP40CA52 PO (14:00)
[2017-02-28] MEDS ORDERED: SUCR1TAB20 PO (14:00)
--- NOTE | 2017-02-28 14:32 | NUR ---
DISCHARGE PT DISCHARGED TO HOME FOR SELF CARE WITH DAD TO DRIVE HOME. PT VERBALIZED UNDERSTANDING OF DISCHARGE INSTRUCTIONS, DISCHARGE MEDICATIONS, AND DISCHARGE APPOINTMENT. IV DISCONTINUED. BELONGINGS WITH PT. PT ESCORTED OUT VIA WHEELCHAIR WITH STAFF ASSIST. SCRIPTS SENT WITH PT. THANKED PT FOR CHOOSING [facility].
--- NOTE | 2017-03-01 09:50 | PNF ---
DATE February 28, 2017 FINDINGS . Gutierres today is without complaints. She has had no further rectal bleeding. Denies any element of abdominal pain. EXAM VITAL SIGNS: Afebrile, normotensive. Last recorded vitals include temperature 96.9, pulse 70, respirations 18, blood pressure 134/82, SAO2 99% on room air. Of her HEENT: CHEST: HEART: ABDOMEN: HEENT: Normocephalic. Pupils are equally round and react to light and accommodation. CHEST: Clear to auscultation bilaterally. HEART: Regular rate and rhythm. Normal S1 and S2 without gallops, murmurs or clicks. ABDOMEN: Palpation of the abdomen reveals it to be soft and nontender. I do not appreciate any evidence for hepatosplenomegaly nor abnormal masses. LABORATORY/RADIOGRAPHIC EVALUATION The patient's hemoglobin remains stable at 8.1. CMP obtained and found to be without marked abnormalities. ASSESSMENT 56-year-old female with presentation of GI bleed secondary to duodenal ulcer. Patient currently doing well. PLAN From my standpoint I do believe that she could likely be discharged to home. Her hemoglobin has been stable over the last 24-48 hours. Would send home as stated above on Carafate and continuation of her PPI. Patient is to follow up with me in the office on a p.r.n. basis. IBRAHIMA
--- NOTE | 2017-03-01 14:13 | DSF ---
ADMISSION DIAGNOSIS Acute GI bleed. DISCHARGE DIAGNOSIS Acute GI bleed secondary to duodenal ulcer. ASSOCIATED CONDITIONS/COMPLICATIONS Duodenal ulcer. Blood loss anemia - status post transfusion of 5 units packed red cells. Tachycardia resolved. Hypotension resolved. Type 2 diabetes mellitus. Hypothyroidism. GERD. Long-term nonsteroidal use. Depression. . Hypokalemia (not present on admission). Hypernatremia (not present on admission). Mild protein calorie malnutrition. CONSULTS Dr. Silverio - Surgery. PROCEDURES 02/23/2017: EGD with attempted deployment of clip, injection of epinephrine solution surrounding bleeding ulcer. 02/23/2017: Transfusion of 4 units packed red cells 02/24/2017: Transfusion of 1 unit packed red cells. CLINICAL RESUME Selam Gutierres is a 56-year-old female who presents to [facility] Emergency Room by EMS secondary to symptoms of weakness, lightheadedness as well as hematemesis and black tarry stools. Per EMS the patient was found to be hypotensive and tachycardic. She was started on IV fluids by EMS and her blood pressure and heart rate did improve by the time she had reached the emergency room. She reports symptoms onset on the . She does report she has been taking ibuprofen 400 mg b.i.d. for the past one to two weeks for dental pain. She also reports her primary care provider has been concerned she may have gastritis or peptic ulcer disease along with her GERD. She has had no history of GI bleeding in the past. Denies peptic ulcer disease. She denies having chest pain, shortness of air, dyspnea, headache or change in bladder function. In the emergency room she was evaluated. White count was elevated at 16.1. Hemoglobin was decreased at 7.7. In light of the patient's acute GI bleed, hospitalist service was notified and she was placed in inpatient admission status for further evaluation and treatment. For complete details of the H&P refer to that document. LABORATORY White blood count is 16.1 with hemoglobin 7.7, hematocrit 23.8, MCV 90.2 and platelets 204,000. 78% neutrophils are noted. Serum sodium is 142, potassium 3.9, chloride 110, CO2 20, BUN 44 with creatinine 0.9, GFR 35 and blood glucose 133. Phosphorus is decreased to 1.8. Magnesium is 1.8. AST is 13 with ALT 23. Total bilirubin 0.3. Iron is normal at 168 with ferritin low-normal at 19.3, vitamin B12 low-normal at 342. Prealbumin is decreased at 12.8. TSH is elevated at 9.39. INR is 1.22 with PTT 23.3. UA reveals low specific gravity 1.010 with trace ketone and 3+ blood. HOSPITAL COURSE The patient was placed in inpatient admission status at [facility] under the hospitalist service. IV fluids were initiated. She was made n.p.o. for bowel rest. Unfortunately, shortly after admission the patient persisted in passing several dark stools. Transfusion was initiated. However, the patient did temperature elevation so transfusion was held. Indeed, workup of this unit was performed and there was no evidence of transfusion reaction. By morning of the hemoglobin had shown decrease to 6.7. The patient was still tachycardic and hypotensive. She was transferred urgently to CCU for further supportive care. Dr. Silverio was consulted. He did concur with transfusion. In light of her active bleeding he did perform EGD which revealed evidence of duodenal ulcer. Around this area was a vessel which he attempted to clip but was unsuccessful. He did initiate epinephrine injection and held pressure on this area to achieve hemostasis. She did require a total of 4 units of packed red cells on the . Hemoglobin was monitored between these and ultimately we saw her hemoglobin to increase to 90. Initially, Protonix bolus was given but then drip was started. Following EGD Carafate was initiated to promote healing. By hospital day #1 hemoglobin had decreased to 7.5 and on recheck was still low at 7.3. She was given another unit of packed red cells on the . She did tolerate all the transfusions well. Hemoglobin did stabilize and was 8.1 by time of discharge. By the we were able to discontinue IV fluids. Clear liquids were started at that time. B12 was found to be low-normal so oral vitamin B12 was started. Oral potassium phosphorus replacement was initiated. Philip was able to be discontinued on the . By the she was able to be transitioned out of CCU and on to the medical floor. By the Protonix was changed from drip to 40 mg IV b.i.d. Diet was advanced. Blood sugars were monitored. Overall she did make very good improvement. Indeed, we did hold her metformin during the hospitalization - rationale for holding metformin was due to her hypotension and we didnt wish to cause any acidosis. Additionally, she was on a clear liquid diet. We did see overall very good blood sugar control, with blood sugars typically running between 94 and 129. We did not perform HgA1c during hospitalization secondary to her significant GI bleed and anemia. It will take at least six to eight weeks before her HgA1c correctly reflects her glycemic control (secondary to receiving 5 units of packed red cells). TSH was found to be elevated and we were uncertain if this was euthyroid sick or if medication adjustment should be made. Will defer further adjustments of her thyroid medication to Dr. Somers. By day of discharge she was eating and drinking well. She was not having nausea or vomiting and keeping foods and liquids in quite well. She was ambulating without difficulty. Vitals were stable and she was afebrile. Hemoglobin was 8.1 at time of discharge. Sodium was 144 with potassium 4.0, creatinine 0.7, phosphorus 4.3 and magnesium 2.0. In light of her interval improvement she was able to be discharged to home for further outpatient followup with Dr. Somers. NARRATIVE DISCLAIMER: The above narrative is a brief summary of patient's hospitalization. For complete details of the hospital course, refer to the medical record. DISCHARGE CONDITION Stable/good. DIET 2000 kilocalorie, low sodium, high protein. ACTIVITIES As tolerated. MEDICATIONS Omeprazole 40 mg p.o. b.i.d. Carafate 1 g a.c. and h.s. [place] 5/325 one q.4h. p.r.n. severe pain. Tylenol 650 mg q.5h. p.r.n. pain. Vitamin B12 1000 mcg daily. Levothyroxine 0.025 mg daily. Paxil 20 mg daily. May stop metformin - monitor blood sugars, restart if blood sugars are showing elevation. FOLLOWUP The patient will follow with Dr. Somers in approximately one week - recommend recheck CBC at that time secondary to anemia. TSH could be rechecked at that time or in the next four weeks. INSTRUCTION TO PATIENT The patient was instructed on her diagnosis and treatments provided. She received informed consent prior to blood product transfusion as well as to EGD. We discussed findings of EGD. Discussed rationale behind treatments. Stressed the importance of avoidance of nonsteroidals. Advised that Tylenol and [place] were safe to use for pain. Advised she should not use any other over- the-counter pain medications. Encouraged her on a healthy well-rounded diabetic diet and activities. Encouraged good nutrition to help her body heal. She will watch for temperature greater than 104.4. Additionally, she will watch for signs or symptoms of GI bleeding. Should these or other problems occur she could be in contact with Dr. Somers. If symptoms become quite dire she can present to the emergency room for acute evaluation. She voiced understanding of the above. Time spent with discharge greater than 35 minutes. MTDD
== END 2017-02-28 14:35 | disposition home or self-care (01) | DRG 378 ==
LOC: ED 19:07 → EDHOLD 22:01 → SRG 22:30 → CCU 02-23 07:58 → MED 02-26 19:45
PROVIDERS: ADMIT Internal Medicine; ATTEND Internal Medicine
PROC: 30233N1 Transfusion of Nonautologous Red Blood Cells into Peripheral Vein, Percutaneous Approach (ICD-10-PCS; 2017-02-23)
PROC: 0W3P8ZZ Control Bleeding in Gastrointestinal Tract, Via Natural or Artificial Opening Endoscopic (ICD-10-PCS; principal; 2017-02-23 11:53)
DX: K26.4 Chronic or unspecified duodenal ulcer with hemorrhage (principal); D62 Acute posthemorrhagic anemia; E87.0 Hyperosmolality and hypernatremia; E44.1 Mild protein-calorie malnutrition; E87.6 Hypokalemia; E11.9 Type 2 diabetes mellitus without complications; E03.9 Hypothyroidism, unspecified; R00.0 Tachycardia, unspecified; I95.9 Hypotension, unspecified; F32.9 Major depressive disorder, single episode, unspecified; F41.9 Anxiety disorder, unspecified; K21.9 Gastro-esophageal reflux disease without esophagitis; Z79.1 Long term (current) use of non-steroidal anti-inflammatories (NSAID); Z68.25 Body mass index [BMI] 25.0-25.9, adult
CPT/HCPCS: 36415; 36569; 80048; 80053; 80069; 81003; 82607; 82728; 82948; 83540; 83735; 84134; 84443; 85014; 85018; 85025; 85610; 85730; 86850; 86900; 86901; 86922; 87040; 94770; 96360; 96361